=== PATIENT | male | born 1945 | race Caucasian/White ===

== ENCOUNTER → 2016-11-19 | Outpatient (CLI) | payer MEDICARE ==
[~2016-11-19] MED LIST: ACETAMINOPHEN-COD #3 PO; ALTACE 10MG TAB10 MG PO; AMARYL4 MG PO; ASPIRIN E.C. 8181 MG PO; DULCOLAX STOOL100 MG PO; LASIX 40MG40 MG/4 ML PO; LEADER CLE17 GM/Dose PO; LIPITOR 40MG TA40 MG PO; MAGNESIUM250 M1 PO; MOBIC 7.5MG7.5 MG PO; MOBIC15 MG PO; MOTRIN 600600 MG/TAB PO; NEURONTIN300 MG/CAP PO; NORCO 325 MG-51 TAB PO; PERCOCET 325 MG1 TA3 PO; PREDNISONE 5MG5 MG PO; PRINIVIL5 MG PO; ROBAXIN 50500 MG/TAB PO; TOUJEO300 U/ML SQ; TURMERIC500 MG PO; TYLENOL W/COD1 UDTAB PO; ULTRAM 50MG TAB50 MG PO; VERAPAMIL180 MG/TAB PO; VERELAN180 MG PO; ZYLOPRIM 300MG300 MG PO
== END ==
LOC: SUN.DIA 10:49
DX: E11.40 Type 2 diabetes mellitus with diabetic neuropathy, unspecified (principal); E11.65 Type 2 diabetes mellitus with hyperglycemia; Z79.4 Long term (current) use of insulin; Z71.3 Dietary counseling and surveillance; E78.5 Hyperlipidemia, unspecified; I10 Essential (primary) hypertension; Z87.891 Personal history of nicotine dependence

== ENCOUNTER → 2016-11-27 | Outpatient (CLI) | payer MEDICARE | LOC: COL.RAD 07:30 | DX: Z13.6 Encounter for screening for cardiovascular disorders (principal); Z87.891 Personal history of nicotine dependence ==

== ENCOUNTER 2017-02-17 07:21 | Emergency (ER) | payer MEDICARE ==
[~2017-02-17] VITALS: Ht 188 cm; Wt 136.4 kg
[2017-02-17 07:25] VITALS: TEMP 97.8
[2017-02-17] MEDS ORDERED: NORCO 325 MG-51 TAB PO (07:58)
[2017-02-17] MEDS ORDERED: ULTRAM 50MG TAB50 MG PO ×2 (07:58→08:15)
[2017-02-17] MEDS ORDERED: ROBAXIN 50500 MG/TAB PO ×2 (07:58→08:33)
[2017-02-17] MEDS ORDERED: LIPITOR 40MG TA40 MG PO (08:09)
[2017-02-17] MEDS ORDERED: TOUJEO300 U/ML SQ (08:10)
[2017-02-17] MEDS ORDERED: VERELAN180 MG PO (08:11)
[2017-02-17] MEDS ORDERED: ALTACE 10MG TAB10 MG PO (08:11)
[2017-02-17] MEDS ORDERED: AMARYL4 MG PO (08:12)
[2017-02-17] MEDS ORDERED: MAGNESIUM250 M1 PO (08:13)
[2017-02-17] MEDS ORDERED: NEURONTIN300 MG/CAP PO (08:13)
[2017-02-17] MEDS ORDERED: MOTRIN 600600 MG/TAB PO (08:14)
[2017-02-17] MEDS ORDERED: ZYLOPRIM 300MG300 MG PO (08:14)
[2017-02-17] MEDS ORDERED: ASPIRIN E.C. 8181 MG PO (08:15)
[2017-02-17] MEDS ORDERED: PERCOCET 325 MG1 TA3 PO (08:16)
[2017-02-17 08:37] VITALS: BP 175/77; PULSE 93
== END 2017-02-17 08:35 | disposition home or self-care (01) ==
LOC: COL.ER 07:21
DX: M25.552 Pain in left hip (principal); M79.652 Pain in left thigh; E11.9 Type 2 diabetes mellitus without complications; M54.5 Low back pain; Z79.4 Long term (current) use of insulin
CPT/HCPCS: J1170; J1885

== ENCOUNTER → 2017-02-22 | Outpatient (CLI) | payer MEDICARE | LOC: COL.RAD 13:48 | DX: M25.552 Pain in left hip (principal) | CPT/HCPCS: J3301; Q9967 ==

== ENCOUNTER 2017-03-09 08:09 | Inpatient (IN) | payer MEDICARE ==
[~2017-03-09] VITALS: Ht 190.5 cm; Wt 123.4 kg
[~2017-03-09 08:09] MED LIST changes: -ACETAMINOPHEN-COD #3 PO; -DULCOLAX STOOL100 MG PO; -LASIX 40MG40 MG/4 ML PO; -LEADER CLE17 GM/Dose PO; -MOBIC 7.5MG7.5 MG PO; -MOBIC15 MG PO; -PREDNISONE 5MG5 MG PO; -PRINIVIL5 MG PO; -TURMERIC500 MG PO; -TYLENOL W/COD1 UDTAB PO; -VERAPAMIL180 MG/TAB PO
[2017-03-09 08:38] LABS: BASO # 0.1 (0.0-0.2); BASO % 0.5 % (0.0-2.0); EOS # 0.1 (0.0-0.7); EOS % 0.7 % (0-4.0); GRAN # 12.6 (1.4-6.5); GRAN % 79.5 % (42.2-75.2); HEMATOCRIT 38.4 % (42.0-52.0); LYMPH # 1.9 (1.2-3.4); LYMPH % 11.9 % (20.0-51.0); MEAN CELL VOLUME 89 fl (80.0-100.0); MEAN CORPUSCULAR HEMOGLOBIN 27 pg (27.0-31.0); MEAN CORPUSCULAR HGB CONC 31 g/dl (33.0-37.0); MEAN PLATELET VOLUME 10.6 fl (7.4-10.4); MONO # 1.1 (0.1-0.6); MONO % 6.8 % (1.7-9.3); PLATELET COUNT 288 K/mm3 (130-400); RED BLOOD COUNT 4.34 M/mm3 (4.20-5.60); REDCELL DISTRIBUTION WIDTH-CV 15.6 % (11.5-14.5); WHITE BLOOD COUNT 15.8 K/mm3 (4.8-10.8)
[2017-03-09 08:39] LABS: HEMOGLOBIN 11.9 g/dl (13.5-18.0)
[2017-03-09 08:41] LABS: PROTHROMBIN TIME 11.5 SECONDS (9.7-12.8)
[2017-03-09 08:44] LABS: PARTIAL THROMBOPLASTIN TIME 30.3 SECONDS (26.0-37.0)
[2017-03-09] MEDS ORDERED: ROBAXIN 50500 MG/TAB PO (08:46)
[2017-03-09] MEDS ORDERED: ACETAMINOPHEN-COD #3 PO (08:46)
[2017-03-09 08:50] LABS: ADJUSTED CALCIUM 9.7 mg/dL (8.4-10.2); ALANINE AMINOTRANSFERASE 33 U/L (21-72); ALBUMIN 3.7 gm/dL (3.5-5.0); ALKALINE PHOSPHATASE 84 U/L (50-136); ANION GAP 10 mmol/L (7-16); BILIRUBIN,TOTAL 0.7 mg/dL (0.0-1.0); BLOOD UREA NITROGEN 48 mg/dL (9-20); CALCIUM 9.5 mg/dL (8.4-10.2); CARBON DIOXIDE 22 mmol/L (22-30); CHLORIDE 103 mmol/L (98-107); CREATININE, serum 1.92 mg/dL (0.66-1.25); GLUCOSE 242 mg/dL (74-106); SODIUM 135 mmol/L (137-145); TOTAL PROTEIN 6.9 gm/dL (6.4-8.2)
[2017-03-09 08:54] LABS: POTASSIUM 6.1 mmol/L (3.4-5.0)
[2017-03-09 09:01] LABS: TROPONIN-I < 0.012 ng/mL (0.000-0.034)
[2017-03-09 09:22] LABS: VENOUS BLOOD GAS BE -4.1 (-4-4)
[2017-03-09 09:23] LABS: VENOUS BLOOD GAS SITE VENIPUNCTURE
[2017-03-09 09:50] LABS: PH 5 (5-8); SQUAMOUS EPITHELIAL 0-2 /hpf; URINE APPEARANCE Hazy; URINE BACTERIA Rare /hpf; URINE BILIRUBIN Negative (NEGATIVE); URINE BLOOD Negative (NEGATIVE); URINE COLOR Yellow; URINE GLUCOSE Negative (NEGATIVE); URINE KETONE Negative (NEGATIVE); URINE UROBILINOGEN Negative (NEGATIVE)
[2017-03-09 11:31] VITALS: BP 125/56; PULSE 71; TEMP 97.7
[2017-03-09] MEDS ORDERED: MOBIC15 MG PO (14:29)
[2017-03-09 19:50] VITALS: BP 146/63; PULSE 77; TEMP 98.4
[2017-03-09] MEDS ORDERED: TYLENOL W/COD1 UDTAB PO (21:05)
[2017-03-10] VITALS (7 sets, daily range): BP systolic 134–157; BP diastolic 56–69; PULSE 75–88; TEMP 97.2–98.3
[2017-03-10 06:58] LABS: BASO % 0.4 % (0.0-2.0); EOS # 0.1 (0.0-0.7); EOS % 1.1 % (0-4.0); GRAN # 9.2 (1.4-6.5); GRAN % 81.2 % (42.2-75.2); LYMPH # 1.2 (1.2-3.4); LYMPH % 10.5 % (20.0-51.0); MEAN CELL VOLUME 87 fl (80.0-100.0); MEAN CORPUSCULAR HGB CONC 32 g/dl (33.0-37.0); MEAN PLATELET VOLUME 10.7 fl (7.4-10.4); MONO # 0.7 (0.1-0.6); MONO % 6.4 % (1.7-9.3); PLATELET COUNT 225 K/mm3 (130-400); RED BLOOD COUNT 3.96 M/mm3 (4.20-5.60); REDCELL DISTRIBUTION WIDTH-CV 15.3 % (11.5-14.5); WHITE BLOOD COUNT 11.4 K/mm3 (4.8-10.8)
[2017-03-10 07:03] LABS: CALCIUM 9.3 mg/dL (8.4-10.2); CREATININE, serum 1.51 mg/dL (0.66-1.25); POTASSIUM 5.3 mmol/L (3.4-5.0)
[2017-03-10 07:07] LABS: HEMATOCRIT 34.5 % (42.0-52.0); HEMOGLOBIN 10.9 g/dl (13.5-18.0); MEAN CORPUSCULAR HEMOGLOBIN 28 pg (27.0-31.0)
[2017-03-11 07:04] LABS: HEMATOCRIT 38.1 % (42.0-52.0); HEMOGLOBIN 12.1 g/dl (13.5-18.0); MEAN CELL VOLUME 86 fl (80.0-100.0); MEAN CORPUSCULAR HEMOGLOBIN 27 pg (27.0-31.0); MEAN CORPUSCULAR HGB CONC 32 g/dl (33.0-37.0); MEAN PLATELET VOLUME 10.7 fl (7.4-10.4); PLATELET COUNT 252 K/mm3 (130-400); RED BLOOD COUNT 4.42 M/mm3 (4.20-5.60); REDCELL DISTRIBUTION WIDTH-CV 15.1 % (11.5-14.5); WHITE BLOOD COUNT 9.7 K/mm3 (4.8-10.8)
[2017-03-11 07:16] LABS: CALCIUM 9.8 mg/dL (8.4-10.2); CREATININE, serum 1.23 mg/dL (0.66-1.25); POTASSIUM 5.1 mmol/L (3.4-5.0)
[2017-03-11 07:27] LABS: ADD PATHOLOGY DIFF REVIEW NO
[2017-03-11 07:54] VITALS: BP 156/66; PULSE 86; TEMP 97.1
[2017-03-11 11:21] LABS: BAND 12 % (0-10); EOSINOPHIL 1 % (0-4); NEUTROPHILS 76 % (42.0-75.2); TOTAL CELLS COUNTED 100
== END 2017-03-11 12:10 | disposition home or self-care (01) | DRG 315 ==
LOC: COL.ER 08:09 → MEDICAL 09:50
PROVIDERS: Family Medicine
DX: I95.9 Hypotension, unspecified (principal); N17.9 Acute kidney failure, unspecified; I25.10 Atherosclerotic heart disease of native coronary artery without angina pectoris; E87.5 Hyperkalemia; E11.9 Type 2 diabetes mellitus without complications; I10 Essential (primary) hypertension; Z87.891 Personal history of nicotine dependence
CPT/HCPCS: 99223-AI; 99232-AI; 99239; J0692; J1170; J1650; J1815; J1956; J2920; J7030

== ENCOUNTER → 2017-03-19 | Outpatient (CLI) | payer MEDICARE ==
[~2017-03-19] MED LIST changes: +ACETAMINOPHEN-COD #3 PO; +DULCOLAX STOOL100 MG PO; +LASIX 40MG40 MG/4 ML PO; +LEADER CLE17 GM/Dose PO; +MOBIC 7.5MG7.5 MG PO; +MOBIC15 MG PO; +PREDNISONE 5MG5 MG PO; +PRINIVIL5 MG PO; +TURMERIC500 MG PO; +TYLENOL W/COD1 UDTAB PO; +VERAPAMIL180 MG/TAB PO
== END ==
LOC: COL.RAD 12:22
DX: M47.816 Spondylosis without myelopathy or radiculopathy, lumbar region (principal); M51.26 Other intervertebral disc displacement, lumbar region; M48.06 Spinal stenosis, lumbar region; M25.78 Osteophyte, vertebrae; Z98.890 Other specified postprocedural states
CPT/HCPCS: A9585

== ENCOUNTER 2017-03-22 08:23 | Emergency (ER) | payer MEDICARE ==
[~2017-03-22] VITALS: Ht 188 cm; Wt 136.4 kg
[~2017-03-22 08:23] MED LIST changes: -DULCOLAX STOOL100 MG PO; -LASIX 40MG40 MG/4 ML PO; -LEADER CLE17 GM/Dose PO; -MOBIC 7.5MG7.5 MG PO; -PREDNISONE 5MG5 MG PO; -PRINIVIL5 MG PO; -TURMERIC500 MG PO; -VERAPAMIL180 MG/TAB PO
[2017-03-22 08:26] VITALS: TEMP 99.6
[2017-03-22] MEDS ORDERED: PRINIVIL5 MG PO (08:42)
[2017-03-22] MEDS ORDERED: MOBIC 7.5MG7.5 MG PO (08:44)
[2017-03-22] MEDS ORDERED: PERCOCET 325 MG1 TA3 PO (08:44)
[2017-03-22 10:42] VITALS: BP 103/61; PULSE 83
== END 2017-03-22 10:45 | disposition home or self-care (01) ==
LOC: COL.ER 08:23
DX: M54.5 Low back pain (principal); G89.29 Other chronic pain; E11.9 Type 2 diabetes mellitus without complications; I10 Essential (primary) hypertension; Z79.4 Long term (current) use of insulin
CPT/HCPCS: J1170

== ENCOUNTER 2017-03-23 09:06 | Emergency (ER) | payer MEDICARE ==
[~2017-03-23] VITALS: Ht 188 cm; Wt 136.4 kg
[~2017-03-23 09:06] MED LIST changes: +MOBIC 7.5MG7.5 MG PO; +PRINIVIL5 MG PO
[2017-03-23 09:07] VITALS: BP 129/63; TEMP 99
[2017-03-23 11:26] VITALS: PULSE 97
== END 2017-03-23 11:26 | disposition home or self-care (01) ==
LOC: COL.ER 09:06
DX: G89.29 Other chronic pain (principal); M54.5 Low back pain; E11.9 Type 2 diabetes mellitus without complications; I10 Essential (primary) hypertension; Z79.4 Long term (current) use of insulin; Z79.84 Long term (current) use of oral hypoglycemic drugs; Z79.82 Long term (current) use of aspirin
CPT/HCPCS: J1170; J3010

== ENCOUNTER 2017-03-24 05:56 | Inpatient (IN) | payer MEDICARE ==
[~2017-03-24] VITALS: Ht 188 cm; Wt 136.2 kg
[2017-03-24 06:50] LABS: BASO % 0.2 % (0.0-2.0); EOS # 0.1 (0.0-0.7); EOS % 1.1 % (0-4.0); GRAN # 8.3 (1.4-6.5); GRAN % 74.7 % (42.2-75.2); HEMATOCRIT 34.6 % (42.0-52.0); HEMOGLOBIN 10.8 g/dl (13.5-18.0); LYMPH # 1.5 (1.2-3.4); LYMPH % 13.6 % (20.0-51.0); MEAN CELL VOLUME 88 fl (80.0-100.0); MEAN CORPUSCULAR HEMOGLOBIN 27 pg (27.0-31.0); MEAN CORPUSCULAR HGB CONC 31 g/dl (33.0-37.0); MEAN PLATELET VOLUME 10.1 fl (7.4-10.4); MONO # 1.1 (0.1-0.6); PLATELET COUNT 231 K/mm3 (130-400); RED BLOOD COUNT 3.95 M/mm3 (4.20-5.60); REDCELL DISTRIBUTION WIDTH-CV 15.8 % (11.5-14.5); WHITE BLOOD COUNT 11.1 K/mm3 (4.8-10.8)
[2017-03-24 06:55] LABS: INR 1.2 (0.8-3.0); PROTHROMBIN TIME 13.4 SECONDS (9.7-12.8)
[2017-03-24 06:58] LABS: PARTIAL THROMBOPLASTIN TIME 29.8 SECONDS (26.0-37.0)
[2017-03-24 07:00] LABS: ADJUSTED CALCIUM 10.1 mg/dL (8.4-10.2); ALANINE AMINOTRANSFERASE 26 U/L (21-72); ALBUMIN 3.5 gm/dL (3.5-5.0); ALKALINE PHOSPHATASE 68 U/L (50-136); ANION GAP 8 mmol/L (7-16); BILIRUBIN,TOTAL 0.6 mg/dL (0.0-1.0); BLOOD UREA NITROGEN 49 mg/dL (9-20); CALCIUM 9.7 mg/dL (8.4-10.2); CARBON DIOXIDE 26 mmol/L (22-30); CHLORIDE 101 mmol/L (98-107); GLUCOSE 192 mg/dL (74-106); POTASSIUM 5.1 mmol/L (3.4-5.0); SODIUM 134 mmol/L (137-145); TOTAL PROTEIN 6.8 gm/dL (6.4-8.2)
[2017-03-24 07:11] LABS: B-TYPE NATRIURETIC PEPTIDE 510 pg/mL (0-125)
[2017-03-24 07:12] LABS: TROPONIN-I < 0.012 ng/mL (0.000-0.034)
[2017-03-24 11:38] VITALS: BP 154/70; PULSE 97; TEMP 97.7
[2017-03-24 15:59] VITALS: BP 154/65; PULSE 116; TEMP 98
[2017-03-24 20:14] VITALS: BP 132/58; PULSE 104; TEMP 98.9
[2017-03-24 23:33] VITALS: BP 135/68; PULSE 97; TEMP 98.2
[2017-03-25 04:05] VITALS: BP 137/50; PULSE 96; TEMP 98.2
[2017-03-25 08:12] VITALS: BP 130/63; PULSE 95; TEMP 98.6
[2017-03-25 09:53] LABS: BASO # 0.1 (0.0-0.2); BASO % 0.4 % (0.0-2.0); EOS # 0.1 (0.0-0.7); EOS % 1.1 % (0-4.0); GRAN # 8.7 (1.4-6.5); GRAN % 75.9 % (42.2-75.2); HEMOGLOBIN 12.5 g/dl (13.5-18.0); LYMPH # 1.6 (1.2-3.4); LYMPH % 13.8 % (20.0-51.0); MEAN CELL VOLUME 89 fl (80.0-100.0); MEAN CORPUSCULAR HEMOGLOBIN 28 pg (27.0-31.0); MEAN CORPUSCULAR HGB CONC 31 g/dl (33.0-37.0); MEAN PLATELET VOLUME 10.6 fl (7.4-10.4); MONO # 0.9 (0.1-0.6); MONO % 8.2 % (1.7-9.3); PLATELET COUNT 303 K/mm3 (130-400); RED BLOOD COUNT 4.52 M/mm3 (4.20-5.60); REDCELL DISTRIBUTION WIDTH-CV 15.9 % (11.5-14.5); WHITE BLOOD COUNT 11.5 K/mm3 (4.8-10.8)
[2017-03-25 10:02] LABS: CALCIUM 10.7 mg/dL (8.4-10.2); CREATININE, serum 1.71 mg/dL (0.66-1.25)
[2017-03-25 12:49] VITALS: BP 135/66; PULSE 118; TEMP 99
[2017-03-25] MEDS ORDERED: DULCOLAX STOOL100 MG PO (13:07)
[2017-03-25] MEDS ORDERED: LASIX 40MG40 MG/4 ML PO (13:08)
[2017-03-25] MEDS ORDERED: LEADER CLE17 GM/Dose PO (13:09)
== END 2017-03-25 15:00 | disposition short-term general hospital (02) | DRG 552 ==
LOC: COL.ER 05:56 → MEDICAL 08:11
PROVIDERS: Emergency Medicine; Physician Assistant
DX: M48.06 Spinal stenosis, lumbar region (principal); E11.9 Type 2 diabetes mellitus without complications; R60.9 Edema, unspecified; I34.0 Nonrheumatic mitral (valve) insufficiency; I12.9 Hypertensive chronic kidney disease with stage 1 through stage 4 chronic kidney disease, or unspecified chronic kidney disease; N18.9 Chronic kidney disease, unspecified; Z79.4 Long term (current) use of insulin; Z87.891 Personal history of nicotine dependence
CPT/HCPCS: 99222-AI; 99239; J1170; J1650; J1815; J1940; J3010

== ENCOUNTER → 2017-04-03 | Outpatient (CLI) | payer MEDICARE ==
[~2017-04-03] MED LIST changes: +DULCOLAX STOOL100 MG PO; +LASIX 40MG40 MG/4 ML PO; +LEADER CLE17 GM/Dose PO; +PREDNISONE 5MG5 MG PO; +TURMERIC500 MG PO; +VERAPAMIL180 MG/TAB PO
== END ==
LOC: ZCOL.LAB 09:13
DX: Z01.812 Encounter for preprocedural laboratory examination (principal); Z86.14 Personal history of Methicillin resistant Staphylococcus aureus infection

== ENCOUNTER 2017-04-22 11:48 | Emergency (ER) | payer MEDICARE ==
[~2017-04-22] VITALS: Ht 188 cm; Wt 128.2 kg
[~2017-04-22 11:48] MED LIST changes: -PREDNISONE 5MG5 MG PO; -TURMERIC500 MG PO; -VERAPAMIL180 MG/TAB PO
[2017-04-22 11:49] VITALS: TEMP 97.4
[2017-04-22 12:24] LABS: BASO # 0.1 (0.0-0.2); BASO % 0.3 % (0.0-2.0); EOS # 0.2 (0.0-0.7); EOS % 1.4 % (0-4.0); GRAN # 12.6 (1.4-6.5); GRAN % 78.6 % (42.2-75.2); LYMPH # 2.1 (1.2-3.4); LYMPH % 13.2 % (20.0-51.0); MEAN CELL VOLUME 88 fl (80.0-100.0); MEAN CORPUSCULAR HGB CONC 31 g/dl (33.0-37.0); MEAN PLATELET VOLUME 10.5 fl (7.4-10.4); MONO # 0.9 (0.1-0.6); MONO % 5.4 % (1.7-9.3); PLATELET COUNT 237 K/mm3 (130-400); RED BLOOD COUNT 3.92 M/mm3 (4.20-5.60); REDCELL DISTRIBUTION WIDTH-CV 17.5 % (11.5-14.5)
[2017-04-22 12:25] LABS: HEMATOCRIT 34.5 % (42.0-52.0); HEMOGLOBIN 10.8 g/dl (13.5-18.0); MEAN CORPUSCULAR HEMOGLOBIN 28 pg (27.0-31.0)
[2017-04-22 12:34] LABS: ARTERIAL BLD GAS TCO2 CT 25.4; ARTERIAL BLOOD GAS BASE EXCESS -0.2 (-2-2); ARTERIAL BLOOD GAS HCO3 24.2 meq/L (22-26); ARTERIAL BLOOD GAS PO2 69.7 mmHg (80-100); ARTERIAL BLOOD GAS pH 7.41 (7.35-7.45); OXYHEMOGLOBIN 92.2 %
[2017-04-22 12:35] LABS: ALLEN TEST YES; ALLENS TEST RESULT PASS; ATS? YES
[2017-04-22 12:42] LABS: ADJUSTED CALCIUM 9.6 mg/dL (8.4-10.2); ALBUMIN 3.4 gm/dL (3.5-5.0); BILIRUBIN,TOTAL 0.9 mg/dL (0.0-1.0); C-REACTIVE PROTEIN 2.7 mg/dL (0.0-0.9); CALCIUM 9.1 mg/dL (8.4-10.2); CREATININE, serum 1.37 mg/dL (0.66-1.25); TOTAL PROTEIN 6.3 gm/dL (6.4-8.2)
[2017-04-22] MEDS ORDERED: TURMERIC500 MG PO (12:47)
[2017-04-22] MEDS ORDERED: VERAPAMIL180 MG/TAB PO (12:48)
[2017-04-22 13:05] LABS: ERYTHROCYTE SEDIMENTATION RATE 46 mm/hr (0-30)
[2017-04-22 13:16] LABS: PH 5 (5-8); SQUAMOUS EPITHELIAL 0-2 /hpf; URINE APPEARANCE Clear; URINE BACTERIA None Seen /hpf; URINE BILIRUBIN Negative (NEGATIVE); URINE BLOOD Negative (NEGATIVE); URINE COLOR Yellow; URINE GLUCOSE Negative (NEGATIVE); URINE KETONE Negative (NEGATIVE); URINE RBC 0-2 /hpf; URINE UROBILINOGEN Negative (NEGATIVE); URINE WBC None Seen /hpf
[2017-04-22] MEDS ORDERED: PREDNISONE 5MG5 MG PO (13:46)
[2017-04-22 17:03] VITALS: BP 111/55; PULSE 74
== END 2017-04-22 17:05 | disposition home or self-care (01) ==
LOC: COL.ER 11:48
PROVIDERS: Family Medicine
DX: M35.3 Polymyalgia rheumatica (principal); I12.9 Hypertensive chronic kidney disease with stage 1 through stage 4 chronic kidney disease, or unspecified chronic kidney disease; E11.22 Type 2 diabetes mellitus with diabetic chronic kidney disease; N18.9 Chronic kidney disease, unspecified; Z79.4 Long term (current) use of insulin; Z79.84 Long term (current) use of oral hypoglycemic drugs
CPT/HCPCS: A9585; J2405; J7030

== ENCOUNTER 2017-06-11 08:00 | Outpatient (RCR) | payer MEDICARE ==
[~2017-06-11 08:00] MED LIST changes: +PREDNISONE 5MG5 MG PO; +TURMERIC500 MG PO; +VERAPAMIL180 MG/TAB PO
== END 2017-06-12 09:53 | disposition still patient (30) ==
LOC: WSPT 08:00
DX: M25.552 Pain in left hip (principal); M25.551 Pain in right hip; M25.512 Pain in left shoulder; M25.511 Pain in right shoulder; M62.81 Muscle weakness (generalized); Z74.09 Other reduced mobility
CPT/HCPCS: G8984-GP; G8985-GP; G8986-GP

== ENCOUNTER 2017-09-12 17:44 | Emergency (ER) | payer MEDICARE ==
[~2017-09-12] VITALS: Ht 188 cm; Wt 141.8 kg
[2017-09-12 18:03] VITALS: TEMP 100.5
[2017-09-12] MEDS ORDERED: DEMADEX10 MG PO (19:24)
[2017-09-12 19:39] LABS: BASO % 0.6 % (0.0-2.0); EOS # 0.1 (0.0-0.7); EOS % 0.8 % (0-4.0); GRAN # 5.3 (1.4-6.5); GRAN % 74.1 % (42.2-75.2); HEMATOCRIT 39.1 % (42.0-52.0); HEMOGLOBIN 12.3 g/dl (13.5-18.0); LYMPH # 0.9 (1.2-3.4); LYMPH % 12.5 % (20.0-51.0); MEAN CELL VOLUME 92 fl (80.0-100.0); MEAN CORPUSCULAR HEMOGLOBIN 29 pg (27.0-31.0); MEAN CORPUSCULAR HGB CONC 32 g/dl (33.0-37.0); MEAN PLATELET VOLUME 10.1 fl (7.4-10.4); MONO # 0.8 (0.1-0.6); PLATELET COUNT 173 K/mm3 (130-400); RED BLOOD COUNT 4.26 M/mm3 (4.20-5.60); REDCELL DISTRIBUTION WIDTH-CV 16.5 % (11.5-14.5)
[2017-09-12 19:51] LABS: CALCIUM 9.6 mg/dL (8.4-10.2); CREATININE, serum 1.72 mg/dL (0.66-1.25); POTASSIUM 4.5 mmol/L (3.4-5.0)
[2017-09-12] MEDS ORDERED: TESSALON P100 MG/CAP PO (20:32)
[2017-09-12] MEDS ORDERED: ZITHROMAX Z PA250 MG PO (20:32)
[2017-09-12] MEDS ORDERED: PROAIR HFA0.09 MG/AC IH (20:32)
[2017-09-12 20:42] VITALS: BP 138/49; PULSE 98
== END 2017-09-12 20:45 | disposition home or self-care (01) ==
LOC: COL.ER 17:44
PROVIDERS: Emergency Medicine
DX: J20.9 Acute bronchitis, unspecified (principal); E11.9 Type 2 diabetes mellitus without complications; I10 Essential (primary) hypertension; Z87.891 Personal history of nicotine dependence; Z90.49 Acquired absence of other specified parts of digestive tract; Z98.890 Other specified postprocedural states; Z79.4 Long term (current) use of insulin; Z79.82 Long term (current) use of aspirin
CPT/HCPCS: J7512

== ENCOUNTER → 2017-10-15 | Outpatient (CLI) | payer MEDICARE ==
[~2017-10-15] MED LIST changes: +DEMADEX10 MG PO; +PROAIR HFA0.09 MG/AC IH; +TESSALON P100 MG/CAP PO; +ZITHROMAX Z PA250 MG PO
== END ==
LOC: COL.RAD 11:30
DX: N20.0 Calculus of kidney (principal); N28.1 Cyst of kidney, acquired; N40.0 Benign prostatic hyperplasia without lower urinary tract symptoms; Z90.49 Acquired absence of other specified parts of digestive tract

== ENCOUNTER → 2017-10-18 | Outpatient (CLI) | payer MEDICARE | LOC: COL.RAD 07:44 | DX: M25.551 Pain in right hip (principal) | CPT/HCPCS: J3301; Q9967 ==

== ENCOUNTER → 2017-10-28 | Outpatient (RCR) | payer MEDICARE | END | disposition home or self-care (01) | LOC: WSPT | DX: I50.30 Unspecified diastolic (congestive) heart failure (principal) | CPT/HCPCS: G8978-GP; G8979-GP ==

== ENCOUNTER 2017-12-17 14:30 | Outpatient (RCR) | payer MEDICARE | END 2017-12-28 09:32 | disposition home or self-care (01) | LOC: WSPT 14:30 | DX: I50.30 Unspecified diastolic (congestive) heart failure (principal) | CPT/HCPCS: G8978-GP; G8979-GP ==

== ENCOUNTER → 2018-01-07 | Outpatient (CLI) | payer MEDICARE | LOC: COL.RAD 12-18 08:15 | DX: M51.26 Other intervertebral disc displacement, lumbar region (principal); M48.061 Spinal stenosis, lumbar region without neurogenic claudication; M43.8X6 Other specified deforming dorsopathies, lumbar region; G96.19 Other disorders of meninges, not elsewhere classified; M25.551 Pain in right hip; M96.1 Postlaminectomy syndrome, not elsewhere classified | CPT/HCPCS: A9585 ==

== ENCOUNTER 2018-06-08 08:30 | Outpatient (RCR) | payer MEDICARE ==
[2018-06-05 10:45] VITALS: BP 140/58; PULSE 92; TEMP 97.7
[2018-06-06 10:23] VITALS: BP 122/63; PULSE 86; TEMP 97.7
[~2018-06-08] VITALS: Ht 188 cm; Wt 130.7 kg
[~2018-06-08 08:30] MED LIST changes: +APRESOLINE50 MG PO; +CARDIZEM CD360 MG PO; +CORDARONE200 MG/TAB PO; +DEMADEX 20MG20 M1 PO; +DOXYCYCLINE 10100 MG PO; +ELIQUIS 5MG PO; +EPA FISH OIL1 SGL PO; +FOLIC ACID 11 MG/TA1 PO; +HUMALOG100 U/ML SQ; +HUMALOGKP50/50 SQ; +INVANZ INJ1 G/VIAL IM; +LEVEMIR FLEX100 U/ML SQ; +METHOTREXA2.5 MG/TAB PO; +PREDNISONE10 MG PO; +VITAMIN D31000 I1 PO
== END 2018-06-09 14:18 | disposition home or self-care (01) ==
LOC: EUO 08:30
DX: M72.6 Necrotizing fasciitis (principal)
CPT/HCPCS: J1335

== ENCOUNTER → 2018-06-19 | Outpatient (CLI) | payer MEDICARE ==
[2018-06-19 17:09] LABS: HEMOGLOBIN 11.3 g/dl (13.5-18.0); MEAN CELL VOLUME 92 fl (80.0-100.0); MEAN CORPUSCULAR HEMOGLOBIN 29 pg (27.0-31.0); MEAN CORPUSCULAR HGB CONC 31 g/dl (33.0-37.0); MEAN PLATELET VOLUME 10.1 fl (7.4-10.4); PLATELET COUNT 364 K/mm3 (130-400); RED BLOOD COUNT 3.92 M/mm3 (4.20-5.60); REDCELL DISTRIBUTION WIDTH-CV 16.3 % (11.5-14.5)
[2018-06-19 17:34] LABS: CALCIUM 9.8 mg/dL (8.4-10.2); CREATININE, serum 2.57 mg/dL (0.66-1.25)
[2018-06-19 18:05] LABS: ERYTHROCYTE SEDIMENTATION RATE 88 mm/hr (0-30); POTASSIUM 5.9 mmol/L (3.4-5.0)
== END ==
LOC: COL.LAB 16:34
PROVIDERS: Family Medicine
DX: M35.3 Polymyalgia rheumatica (principal); N49.3 Fournier gangrene; R01.1 Cardiac murmur, unspecified

== ENCOUNTER 2018-11-07 09:00 | Outpatient (RCR) | payer MEDICARE | END 2018-11-24 09:28 | disposition home or self-care (01) | LOC: WSC 09:00 | DX: M46.1 Sacroiliitis, not elsewhere classified (principal); M47.816 Spondylosis without myelopathy or radiculopathy, lumbar region ==

== ENCOUNTER 2018-12-05 11:03 | Inpatient (IN) | payer MEDICARE ==
[~2018-12-05] VITALS: Ht 188 cm; Wt 129.2 kg
[2018-12-05 11:35] LABS: BASO % 0.5 % (0.0-2.0); EOS # 0.1 (0.0-0.7); EOS % 0.7 % (0-4.0); GRAN # 7.3 (1.4-6.5); GRAN % 84.3 % (42.2-75.2); HEMATOCRIT 37.1 % (42.0-52.0); HEMOGLOBIN 11.9 g/dl (13.5-18.0); LYMPH # 0.7 (1.2-3.4); LYMPH % 8.3 % (20.0-51.0); MEAN CELL VOLUME 94 fl (80.0-100.0); MEAN CORPUSCULAR HEMOGLOBIN 30 pg (27.0-31.0); MEAN CORPUSCULAR HGB CONC 32 g/dl (33.0-37.0); MEAN PLATELET VOLUME 9.8 fl (7.4-10.4); MONO # 0.5 (0.1-0.6); MONO % 5.4 % (1.7-9.3); PLATELET COUNT 368 K/mm3 (130-400); RED BLOOD COUNT 3.95 M/mm3 (4.20-5.60); REDCELL DISTRIBUTION WIDTH-CV 16.5 % (11.5-14.5)
[2018-12-05 11:41] LABS: ALBUMIN 3.7 gm/dL (3.5-5.0); BILIRUBIN,TOTAL 1.3 mg/dL (0.0-1.0); CALCIUM 9.8 mg/dL (8.4-10.2); CREATININE, serum 1.88 (0.66-1.25); POTASSIUM 4.2 mmol/L (3.4-5.0)
[2018-12-05 11:54] LABS: TROPONIN-I 0.062 ng/mL (0.000-0.035)
[2018-12-05 11:55] LABS: ARTERIAL BLD GAS O2 SATURATION 93.7 % (92-100); ARTERIAL BLD GAS TCO2 CT 29.5; ARTERIAL BLOOD GAS BASE EXCESS 6.1 (-2-2); ARTERIAL BLOOD GAS HCO3 28.5 meq/L (22-26); ARTERIAL BLOOD GAS PCO2 33.6 mmHg (35-45); ARTERIAL BLOOD GAS PO2 67.9 mmHg (80-100); ARTERIAL BLOOD GAS pH 7.55 (7.35-7.45)
[2018-12-05] MEDS ORDERED: LEXAPRO 5MG5 MG PO (12:37)
[2018-12-05] MEDS ORDERED: ASPIRIN 81M81 MG/TA2 PO (12:38)
[2018-12-05] MEDS ORDERED: TYLENOL W/COD1 UDTAB PO (12:38)
[2018-12-05 13:15] LABS: COLLECTION METHOD CLEAN CATCH
[2018-12-05 13:24] LABS: MUCOUS Present /lpf; PH 6 (5-8); SQUAMOUS EPITHELIAL 0-2 /hpf; URINE APPEARANCE Clear; URINE BACTERIA Rare /hpf; URINE BILIRUBIN Negative (NEGATIVE); URINE BLOOD 1+ (NEGATIVE); URINE COLOR Yellow; URINE GLUCOSE Negative (NEGATIVE); URINE KETONE Negative (NEGATIVE); URINE LEUKOCYTE ESTERASE Negative (NEGATIVE); URINE NITRATE Negative (NEGATIVE); URINE PROTEIN(semi-quant) 2+ (NEGATIVE); URINE RBC 0-2 /hpf; URINE UROBILINOGEN Negative (NEGATIVE)
--- NOTE | 2018-12-05 14:30 | NUR ---
received report from RUDY Trevino from ER.
--- NOTE | 2018-12-05 14:50 | NUR ---
pt arrive to room 315.oriented to room.resting in bed at this time.call light in reach
[2018-12-05 15:19] VITALS: BP 108/46; PULSE 94; TEMP 98.9
[2018-12-05] MEDS ORDERED: NEURONTIN300 MG/CAP PO (15:31)
[2018-12-05] MEDS ORDERED: FOLIC ACID 11 MG/TA1 PO (15:36)
--- NOTE | 2018-12-05 20:00 | NUR ---
PT IN BED WITH HOB ELEVATED TO 45 DEGREE ANGLE. PT HAS BY SIDE. NO C/O PAIN OR DISCOMFORT, CALL LIGHT WITHIN REACH.
--- NOTE | 2018-12-05 20:11 | NUR ---
PT SITTING UP EATING AT THIS TIME.HEPARIN GTT INFUSING.REPORT GIVEN TO RUDY PLUMMRE.WILL CONTINUE TO MONITOR.CALL LIGHT IN REACH
[2018-12-05 22:40] VITALS: BP 115/62; PULSE 74; TEMP 99.6
[2018-12-06] VITALS (1117 sets, daily range): BP systolic 133–147; BP diastolic 67–91; PULSE 73–94; TEMP 97.8–99.6; O2SAT 83–100
[2018-12-06 01:33] LABS: BASO # 0.1 (0.0-0.2); BASO % 0.6 % (0.0-2.0); EOS # 0.1 (0.0-0.7); EOS % 1.2 % (0-4.0); GRAN # 6.6 (1.4-6.5); GRAN % 80.7 % (42.2-75.2); LYMPH # 1.2 (1.2-3.4); LYMPH % 14.1 % (20.0-51.0); MEAN CELL VOLUME 95 fl (80.0-100.0); MEAN CORPUSCULAR HEMOGLOBIN 30 pg (27.0-31.0); MEAN CORPUSCULAR HGB CONC 32 g/dl (33.0-37.0); MEAN PLATELET VOLUME 9.5 fl (7.4-10.4); MONO # 0.2 (0.1-0.6); MONO % 2.9 % (1.7-9.3); PLATELET COUNT 323 K/mm3 (130-400); RED BLOOD COUNT 3.65 M/mm3 (4.20-5.60); REDCELL DISTRIBUTION WIDTH-CV 16.4 % (11.5-14.5)
[2018-12-06 01:35] LABS: HEMATOCRIT 34.6 % (42.0-52.0)
[2018-12-06 01:43] LABS: ALBUMIN 3.2 gm/dL (3.5-5.0); BILIRUBIN,TOTAL 0.7 mg/dL (0.0-1.0); CALCIUM 9.3 mg/dL (8.4-10.2); CREATININE, serum 1.74 (0.66-1.25); MAGNESIUM 2.1 mg/dL (1.6-2.3); POTASSIUM 3.9 mmol/L (3.4-5.0); TOTAL PROTEIN 6.1 gm/dL (6.4-8.2)
--- NOTE | 2018-12-06 02:15 | NUR ---
REPORT GIVEN TO ICU NURSE. PT ADVISED THAT HE WAS JUST UNCOMFORTABLE IN BED AND THAT HE HAS ALWAYS HAD THAT PROBLEM WHEN HE IS IN THE HOSPITAL. PT WAS TAKEN DOWN TO ICU VIA W/C WITH ALL HIS PERSONAL BELONGINGS. PT BROUGHT TO ROOM 8.
--- NOTE | 2018-12-06 03:33 | NUR ---
0207 - RECEIVED REPORT FROM RUDY PLUMMER VIA PHONE. 0240 - PT ARRIVED IN UNIT VIA WHEELCHAIR ESCORETD BY RUDY PLUMMER. PT WAS ABLE TO TRANSFER SELF TO BED INDEPENDENTLY. PT ALERT AND ORIENTED X4. PT ORIENTED TO ROOM AND USE OF CALL LIGHT.
--- NOTE | 2018-12-06 03:36 | NUR ---
PT ARRIVED ON UNIT AT 0240 WITH HIS HEPARIN DRIP OFF. HEPARIN WAS STOPED AT 0130 PER RUDY PLUMMER. NEXT HEPARIN XA ORDERED AT 0330 PER PROTOCOL.
[2018-12-06 03:50] LABS: BASO % 0.5 % (0.0-2.0); EOS # 0.1 (0.0-0.7); EOS % 1.3 % (0-4.0); GRAN # 6.1 (1.4-6.5); GRAN % 79.8 % (42.2-75.2); HEMOGLOBIN 10.6 g/dl (13.5-18.0); LYMPH # 1.1 (1.2-3.4); LYMPH % 14.3 % (20.0-51.0); MEAN CELL VOLUME 95 fl (80.0-100.0); MEAN CORPUSCULAR HEMOGLOBIN 30 pg (27.0-31.0); MEAN CORPUSCULAR HGB CONC 32 g/dl (33.0-37.0); MEAN PLATELET VOLUME 9.3 fl (7.4-10.4); MONO # 0.3 (0.1-0.6); MONO % 3.5 % (1.7-9.3); PLATELET COUNT 323 K/mm3 (130-400); RED BLOOD COUNT 3.53 M/mm3 (4.20-5.60); REDCELL DISTRIBUTION WIDTH-CV 16.5 % (11.5-14.5)
[2018-12-06 03:58] LABS: HEMATOCRIT 33.5 % (42.0-52.0)
[2018-12-06 04:04] LABS: ALBUMIN 3.1 gm/dL (3.5-5.0); BILIRUBIN,TOTAL 0.6 mg/dL (0.0-1.0); CALCIUM 9.3 mg/dL (8.4-10.2); CREATININE, serum 1.71 (0.66-1.25); POTASSIUM 4.1 mmol/L (3.4-5.0); TOTAL PROTEIN 6.1 gm/dL (6.4-8.2)
[2018-12-06 04:20] LABS: TROPONIN-I 0.086 ng/mL (0.000-0.035)
--- NOTE | 2018-12-06 04:36 | NUR ---
HEP XA OF 0.70, HEPARIN DRIP RESTARTED AT 1970 UNITS/HR(19.7 ML/HR) PER PROTOCOL SINCE LAST DOSE WAS 22.7 ML/HR. RECHECK OF HEP XA AT 1030.
--- NOTE | 2018-12-06 04:51 | NUR ---
0420 - CRITICAL TROPONIN OF 0.086 REPORTED TO ABIDA CRONIN, NO NEW ORDERS RECEIVED AT THIS TIME.
--- NOTE | 2018-12-06 11:15 | NUR ---
HepXA 1.05; Heparin stopped at this time x2 hours, then will recheck HepXa. Patient and aware.
--- NOTE | 2018-12-06 12:24 | NUR ---
Senior Librarian offered support with patient while family was in room. Patient seemed frustrated.
[2018-12-06 13:58] LABS: PARTIAL THROMBOPLASTIN TIME 47.3 SECONDS (26.0-37.0)
[2018-12-07] VITALS (488 sets, daily range): BP systolic 127–144; BP diastolic 54–106; PULSE 79–84; TEMP 98.7–100.1; O2SAT 86–98
--- NOTE | 2018-12-07 03:50 | NUR ---
MET GOAL TWICE, NEXT HEP XA LULY AT 0500.
[2018-12-07 05:52] LABS: BASO # 0.1 (0.0-0.2); BASO % 0.8 % (0.0-2.0); EOS # 0.2 (0.0-0.7); EOS % 2.2 % (0-4.0); GRAN # 6.3 (1.4-6.5); HEMOGLOBIN 10.5 g/dl (13.5-18.0); LYMPH # 1.1 (1.2-3.4); LYMPH % 13.7 % (20.0-51.0); MEAN CELL VOLUME 96 fl (80.0-100.0); MEAN CORPUSCULAR HEMOGLOBIN 30 pg (27.0-31.0); MEAN CORPUSCULAR HGB CONC 31 g/dl (33.0-37.0); MEAN PLATELET VOLUME 9.9 fl (7.4-10.4); MONO # 0.2 (0.1-0.6); MONO % 1.9 % (1.7-9.3); PLATELET COUNT 328 K/mm3 (130-400); RED BLOOD COUNT 3.52 M/mm3 (4.20-5.60); REDCELL DISTRIBUTION WIDTH-CV 16.5 % (11.5-14.5)
[2018-12-07 05:59] LABS: HEMATOCRIT 33.7 % (42.0-52.0)
[2018-12-07 06:01] LABS: CALCIUM 9.4 mg/dL (8.4-10.2); CREATININE, serum 1.62 (0.66-1.25)
--- NOTE | 2018-12-07 07:15 | NUR ---
Report recieved from Lanie GRANT. Patient sitting up in chair watching golf. Denies needs. Call light at side.
--- NOTE | 2018-12-07 10:10 | NUR ---
Report called to Melly GRANT
--- NOTE | 2018-12-07 10:19 | NUR ---
RECEIVED REPORT FROM RUDY TAYLOR.
--- NOTE | 2018-12-07 10:55 | NUR ---
transferred to room 308 via wheel chair with RN and at side. Melly RN in room to accept patient after second call. Patient up in recliner, call light and phone at side. Heparin reviewed with accepting RN
--- NOTE | 2018-12-07 11:18 | NUR ---
PT ARRIVED TO ROOM 308.SITTING UP IN RECLINER AT THIS TIME WITH AT BEDSIDE.PATIENT HAS HEPARIN DRIP INFUSING.DENIES ANY OTHER NEEDS AT THIS TIME.CALL LIGHT IN REACH
--- NOTE | 2018-12-07 11:40 | NUR ---
RECEIVED CALL FROM LAB STATING THAT PATIENT IS POSITIVE FOR MRSA.CONTACT PRECAUTION PRECAUTION IN PLACE.WILL CONTINUE TO MONITOR.CALL LIGHT IN REACH
--- NOTE | 2018-12-07 17:14 | NUR ---
Heparin discontinued per doctors orders.
--- NOTE | 2018-12-07 18:13 | NUR ---
CONSULTED FOR INFECTION OF UNKNOWN ORIGIN.PT CONTINUES ON VANCOMYCIN AND ROCEPHIN.PT HAS BEEN FEBRILE.HEPARIN GTT DISCONTINUED.PATIENT RESTING IN RECLINER.BLOOD SUGARS STABLE.NO NEEDS AT THIS TIME.CALL LIGHT IN REACH
--- NOTE | 2018-12-07 18:59 | NUR ---
vanc trough 21.28.hold ack sent to pharmacy after attempt to call pharmacy.Mechanical And Auto Body Car Checker to get trombone slide assembler number for pharmacy.
--- NOTE | 2018-12-07 19:10 | NUR ---
report given to RUDY Garcia
--- NOTE | 2018-12-07 19:17 | NUR ---
Report received from RUDY Pickard
--- NOTE | 2018-12-07 21:25 | NUR ---
Resting in recliner. Assessment complete. Lungs clear. Heart sounds normal. Bowels active x4. Pulses present. Bilateral lower leg edema +3 present. Denies pain. Reports headache-01/02. Requested tylenol #3. Will provide to patient. Denies other needs at this time. Call light in reach.
--- NOTE | 2018-12-08 00:15 | NUR ---
Sitting in recliner. Denies needs. Denies pain. Call light in reach.
[2018-12-08 00:28] VITALS: BP 102/31; PULSE 75; TEMP 98.7
[2018-12-08 01:08] VITALS: BP 121/48; PULSE 75; TEMP 98.7
--- NOTE | 2018-12-08 04:16 | NUR ---
Resting in bed. Call light in reach.
[2018-12-08 05:07] VITALS: BP 145/53; PULSE 87; TEMP 98.6
--- NOTE | 2018-12-08 06:06 | NUR ---
Patient had uneventful night. Resting in bed this AM. Denies needs. Call light in reach.
--- NOTE | 2018-12-08 07:13 | NUR ---
Report given to RUDY Boswell
[2018-12-08 07:28] LABS: BASO # 0.1 (0.0-0.2); BASO % 0.7 % (0.0-2.0); EOS # 0.2 (0.0-0.7); GRAN # 7.3 (1.4-6.5); GRAN % 84.6 % (42.2-75.2); HEMOGLOBIN 11.1 g/dl (13.5-18.0); LYMPH # 0.8 (1.2-3.4); LYMPH % 8.9 % (20.0-51.0); MEAN CELL VOLUME 95 fl (80.0-100.0); MEAN CORPUSCULAR HEMOGLOBIN 30 pg (27.0-31.0); MEAN CORPUSCULAR HGB CONC 31 g/dl (33.0-37.0); MEAN PLATELET VOLUME 9.9 fl (7.4-10.4); MONO # 0.3 (0.1-0.6); MONO % 2.9 % (1.7-9.3); PLATELET COUNT 347 K/mm3 (130-400); RED BLOOD COUNT 3.72 M/mm3 (4.20-5.60); REDCELL DISTRIBUTION WIDTH-CV 16.3 % (11.5-14.5)
[2018-12-08 07:29] LABS: HEMATOCRIT 35.4 % (42.0-52.0)
[2018-12-08 07:35] VITALS: BP 117/49; PULSE 97; TEMP 98.8
[2018-12-08 07:44] LABS: CALCIUM 9.7 mg/dL (8.4-10.2); CREATININE, serum 1.84 (0.66-1.25); POTASSIUM 4.1 mmol/L (3.4-5.0)
--- NOTE | 2018-12-08 08:26 | NUR ---
Pt assessment complete. Pt laying in bed upon entry, at bedside. Pt has eyes closed but arouses to voice. He is oriented x4. His breathing is even and unlabored on RA. Pt denies SOB. Pt currently reporting a headache, denies any N/V or vision changes. No N/T present. Isolation precautions in place. Pt denies further needs, breakfast order placed. Will continue to monitor.
[2018-12-08 11:26] VITALS: BP 117/55; PULSE 64; TEMP 98.3
[2018-12-08] MEDS ORDERED: DOXYCYCLINE 10100 MG PO (11:33)
[2018-12-08] MEDS ORDERED: COREG 6.256.25 MG/TA PO (11:34)
--- NOTE | 2018-12-08 11:41 | NUR ---
SW attended clinical rounding and met with patient to discuss discharge planning. Patient is DC home today with his Delmis. He lives in [place] and is independent. Patients PCP is Dr Jeremy Henao and he obtains his medications from [facility]. PT and OT have been consulted however nurse says he is up independently in his room. SW met presented IM and verbally discussed the contents. Patient was agreeable and signed the form. Copy declined and original in the chart. Patient has an appointment with [facility] tomorrow.
--- NOTE | 2018-12-08 16:01 | NUR ---
Discharge paperwork reviewed with patient and his . All questions answered at this time. IV to RFA dc'd, catheter tip intact. Pt wheeled out of facility at this time.
== END 2018-12-08 16:01 | disposition home or self-care (01) | DRG 189 ==
LOC: COL.ER 11:03 → MEDICAL 13:11 → ICU 12-06 04:46 → MEDICAL 12-07 10:57
PROVIDERS: Family Medicine; Hospitalist; Nurse Practitioner Family; Physician Assistant; ADMIT Family Medicine
DX: J96.01 Acute respiratory failure with hypoxia (principal); R65.11 Systemic inflammatory response syndrome (SIRS) of non-infectious origin with acute organ dysfunction; I21.4 Non-ST elevation (NSTEMI) myocardial infarction; I13.0 Hypertensive heart and chronic kidney disease with heart failure and stage 1 through stage 4 chronic kidney disease, or unspecified chronic kidney disease; I50.32 Chronic diastolic (congestive) heart failure; E87.4 Mixed disorder of acid-base balance; E87.1 Hypo-osmolality and hyponatremia; I47.2 Ventricular tachycardia; R50.9 Fever, unspecified; I35.0 Nonrheumatic aortic (valve) stenosis; I25.10 Atherosclerotic heart disease of native coronary artery without angina pectoris; E11.22 Type 2 diabetes mellitus with diabetic chronic kidney disease; N18.3 Chronic kidney disease, stage 3 (moderate); E78.5 Hyperlipidemia, unspecified; M35.3 Polymyalgia rheumatica; Z79.52 Long term (current) use of systemic steroids; Z79.4 Long term (current) use of insulin; Z87.891 Personal history of nicotine dependence; D64.9 Anemia, unspecified; E87.8 Other disorders of electrolyte and fluid balance, not elsewhere classified; E11.65 Type 2 diabetes mellitus with hyperglycemia
CPT/HCPCS: 99222-AI; 99232-AI; 99239; A4216; A9540; A9567; J0696; J1644; J1815; J3370; J7030; J7050; J7512

== ENCOUNTER 2019-04-28 13:45 | Outpatient (RCR) | payer MEDICARE ==
[~2019-04-28 13:45] MED LIST changes: +ASPIRIN 81M81 MG/TA2 PO; +COREG 6.256.25 MG/TA PO; +LEXAPRO 5MG5 MG PO
== END 2019-07-05 ==
LOC: WSC
DX: M47.816 Spondylosis without myelopathy or radiculopathy, lumbar region (principal); M96.1 Postlaminectomy syndrome, not elsewhere classified

== ENCOUNTER 2019-05-11 14:27 | Outpatient (RCR) | payer MEDICARE | END 2019-05-19 | disposition home or self-care (01) | LOC: COL.CR | DX: Z48.812 Encounter for surgical aftercare following surgery on the circulatory system (principal); Z95.2 Presence of prosthetic heart valve; I35.0 Nonrheumatic aortic (valve) stenosis ==

== ENCOUNTER 2019-06-22 16:12 | Outpatient (RCR) | payer MEDICARE | END 2019-07-20 15:02 | disposition home or self-care (01) | LOC: COL.CR 16:12 | DX: Z48.812 Encounter for surgical aftercare following surgery on the circulatory system (principal); Z95.2 Presence of prosthetic heart valve; I35.0 Nonrheumatic aortic (valve) stenosis ==

== ENCOUNTER → 2020-02-10 | Outpatient (CLI) | payer MEDICARE ==
[~2020-02-10] MED LIST changes: +ASPI325T6 PO; +COLACE 100100 MG/CAP PO; +DULCOLAX S10 MG/SUPP RC; +GLUCOPHAGE XR500 M1 PO; +GOOD NEIGH1200 MG/15 PO; +LIPITOR 80MG80 MG PO; +NOVLOG SQ; +PERCOCET 325 MG1 TA2 PO; +TYLENOL 325MG325 MG PO; +XALATAN EYE DROPS OU
[2020-02-10 17:28] LABS: CALCIUM 9.9 mg/dL (8.4-10.2); CREATININE, serum 1.6 (0.66-1.25); POTASSIUM 4.7 mmol/L (3.4-5.0)
== END ==
LOC: ZCOL.LAB 16:43
PROVIDERS: Family Medicine
DX: N18.4 Chronic kidney disease, stage 4 (severe) (principal)

== ENCOUNTER 2020-12-20 11:00 | Outpatient (RCR) | payer MEDICARE ==
[2021-02-08] MEDS ORDERED: NOVOLOG FLEX100 U/ML SQ (09:09)
[2021-02-08] MEDS ORDERED: TYLENOL W/COD1 UDTAB PO (09:18)
[2021-02-08] MEDS ORDERED: ZYLOPRIM 300MG300 MG PO (09:19)
[2021-02-08] MEDS ORDERED: EPA FISH OIL1 SGL PO (09:23)
[2021-02-10] MEDS ORDERED: CUBICIN 500MG500 MG IV (14:00)
[2021-02-18] MEDS ORDERED: ELIQUIS 2.5 PO (09:19)
[2021-02-22] MEDS ORDERED: XARELTO15 MG PO (08:35)
[2021-03-22] MEDS ORDERED: ZYLOPRIM 300MG300 MG PO (20:45)
[2021-03-22] MEDS ORDERED: NEURONTIN300 MG/CAP PO (20:46)
[2021-03-22] MEDS ORDERED: LIPITOR 80MG80 MG PO (20:48)
[2021-03-22] MEDS ORDERED: MAGNESIUM250 M1 PO (20:48)
[2021-03-22] MEDS ORDERED: VITAMIN D31000 IU PO (20:50)
[2021-03-22] MEDS ORDERED: JUVEN1 PDR PO (20:53)
[2021-03-22] MEDS ORDERED: LOPRESSOR 550 MG/TAB PO (20:54)
[2021-03-22] MEDS ORDERED: VENELEX OINTMEN30 GM TP (20:55)
[2021-03-22] MEDS ORDERED: NOVOLOG 100U100 U/M1 SQ (20:58)
[2021-03-22] MEDS ORDERED: TYLENOL SU650 MG/SUP RC (21:07)
[2021-03-22] MEDS ORDERED: NORCO 325 MG-51 TAB PO (21:08)
== END 2020-12-21 | disposition still patient (30) ==
LOC: WSPT
DX: M25.561 Pain in right knee (principal)

== ENCOUNTER → 2021-01-18 | Outpatient (CLI) | payer MEDICARE ==
[~2021-01-18] MED LIST changes: +ATARAX 25MG25 MG/TAB PO; +BUMEX 1MG TA1 MG/TA1 PO; +COZAAR100 MG PO; +CUBICIN 500MG500 MG IV; +DESITIN MAXIMUM S40% TP; +DIFLUCAN 100MG100 MG PO; +ELIQUIS 2.5 PO; +FLOMAX 0.40.4 MG/CAP PO; +HYTRIN 2MG CAPSU2 MG PO; +JUVEN1 PDR PO; +KEPPRA 500MG500 MG PO; +LOPRESSOR 550 MG/TAB PO; +MAG-OX 400400 MG/TAB PO; +MYRBETR25MG PO; +NORVASC 5MG5 MG/TAB PO; +NOVOLOG 100U100 U/M1 SQ; +NOVOLOG FLEX100 U/ML SQ; +PACERONE200 MG PO; +PREDNISONE 2.52.5 MG PO; +ROBAXIN 75750 MG/TAB PO; +SALONPAS1 EACH TP; +SINEMET 25/101 UDTAB PO; +TOPROL XL100 MG PO; +TUMS500 MG PO; +TYLENOL SU650 MG/SUP RC; +VENELEX OINTMEN30 GM TP; +VITAMIN D31000 IU PO; +XARELTO15 MG PO; +ZOLOFT 50MG50 MG PO
== END ==
LOC: COL.RAD 08:15
DX: M48.061 Spinal stenosis, lumbar region without neurogenic claudication (principal); M51.26 Other intervertebral disc displacement, lumbar region; M47.816 Spondylosis without myelopathy or radiculopathy, lumbar region; Z98.890 Other specified postprocedural states
CPT/HCPCS: A9585

== ENCOUNTER 2021-01-30 09:16 | Inpatient (IN) | payer MEDICARE ==
[2021-01-30] VITALS (305 sets, daily range): BP systolic 77–113; BP diastolic 39–65; PULSE 105–122; TEMP 98.7–103; O2SAT 68–100
[~2021-01-30] VITALS: Ht 188 cm; Wt 127.6 kg
[~2021-01-30 09:16] MED LIST changes: -ATARAX 25MG25 MG/TAB PO; -BUMEX 1MG TA1 MG/TA1 PO; -COZAAR100 MG PO; -CUBICIN 500MG500 MG IV; -DESITIN MAXIMUM S40% TP; -DIFLUCAN 100MG100 MG PO; -ELIQUIS 2.5 PO; -FLOMAX 0.40.4 MG/CAP PO; -HYTRIN 2MG CAPSU2 MG PO; -JUVEN1 PDR PO; -KEPPRA 500MG500 MG PO; -LOPRESSOR 550 MG/TAB PO; -MAG-OX 400400 MG/TAB PO; -MYRBETR25MG PO; -NORVASC 5MG5 MG/TAB PO; -NOVOLOG 100U100 U/M1 SQ; -NOVOLOG FLEX100 U/ML SQ; -PACERONE200 MG PO; -PREDNISONE 2.52.5 MG PO; -ROBAXIN 75750 MG/TAB PO; -SALONPAS1 EACH TP; -SINEMET 25/101 UDTAB PO; -TOPROL XL100 MG PO; -TUMS500 MG PO; -TYLENOL SU650 MG/SUP RC; -VENELEX OINTMEN30 GM TP; -VITAMIN D31000 IU PO; -XARELTO15 MG PO; -ZOLOFT 50MG50 MG PO
[2021-01-30 10:54] LABS: COLLECTION METHOD CLEAN CATCH
[2021-01-30 11:10] LABS: PH 5 (5-8); SQUAMOUS EPITHELIAL None Seen /hpf; URINE APPEARANCE Clear; URINE BACTERIA None Seen /hpf; URINE BILIRUBIN Negative (NEGATIVE); URINE BLOOD Negative (NEGATIVE); URINE COLOR Yellow; URINE GLUCOSE 1+ (NEGATIVE); URINE KETONE Negative (NEGATIVE); URINE LEUKOCYTE ESTERASE Negative (NEGATIVE); URINE NITRATE Negative (NEGATIVE); URINE PROTEIN(semi-quant) 2+ (NEGATIVE); URINE RBC 0-2 /hpf; URINE UROBILINOGEN Negative (NEGATIVE)
[2021-01-30 11:43] LABS: BASO % 0.2 % (0.0-2.0); EOS # 0.1 (0.0-0.7); EOS % 0.6 % (0-4.0); GRAN # 17.3 (1.4-6.5); GRAN % 89.7 % (42.2-75.2); HEMOGLOBIN 11.2 g/dl (13.5-18.0); LYMPH # 1.1 (1.2-3.4); LYMPH % 5.4 % (20.0-51.0); MEAN CELL VOLUME 92 fl (80.0-100.0); MEAN CORPUSCULAR HEMOGLOBIN 29 pg (27.0-31.0); MEAN CORPUSCULAR HGB CONC 31 g/dl (33.0-37.0); MONO # 0.7 (0.1-0.6); MONO % 3.6 % (1.7-9.3); PLATELET COUNT 136 K/mm3 (130-400); RED BLOOD COUNT 3.93 M/mm3 (4.20-5.60); REDCELL DISTRIBUTION WIDTH-CV 16.4 % (11.5-14.5)
[2021-01-30 12:03] LABS: BILIRUBIN,TOTAL 0.7 mg/dL (0.0-1.0); CREATININE, serum 1.64 (0.66-1.25); POTASSIUM 3.9 mmol/L (3.4-5.0); TOTAL PROTEIN 5.5 gm/dL (6.4-8.2)
[2021-01-30 12:31] LABS: C-REACTIVE PROTEIN 4.3 mg/dL (0.0-0.9)
--- NOTE | 2021-01-30 14:43 | NUR ---
PT and are unsure of PTs daily medication. PCP to fax over.
[2021-01-30 15:31] LABS: INR 1.2 (0.8-3.0); PROTHROMBIN TIME 13.8 SECONDS (9.7-12.8)
[2021-01-30] MEDS ORDERED: ASPIRIN 81M81 MG/TA2 PO (17:49)
[2021-01-30] MEDS ORDERED: ATARAX 25MG25 MG/TAB PO (17:50)
[2021-01-30] MEDS ORDERED: COZAAR100 MG PO (17:50)
[2021-01-30] MEDS ORDERED: VITAMIN D31000 IU PO (17:53)
[2021-01-30] MEDS ORDERED: MYRBETR25MG PO (17:54)
[2021-01-30] MEDS ORDERED: FLOMAX 0.40.4 MG/CAP PO (17:55)
[2021-01-30] MEDS ORDERED: SALONPAS1 EACH TP (17:56)
[2021-01-30] MEDS ORDERED: HYTRIN 2MG CAPSU2 MG PO (17:57)
[2021-01-30] MEDS ORDERED: ROBAXIN 75750 MG/TAB PO (17:57)
--- NOTE | 2021-01-30 19:15 | NUR ---
Received report from RUDY Melton. Patient attempting to roll out of bed. He is short of breath on assessment, tachypneic, and breathing is labored at rest. Assisted patient into an upright position, which patient states helps somewhat. He is very restless. Danielle hospitalist, notified.
--- NOTE | 2021-01-30 19:30 | NUR ---
Received orders for Precedex from [facility] physician, Dr. Garcia. Linh, RN, notified hogshead wrecker, Dr. West.
--- NOTE | 2021-01-30 19:36 | NUR ---
Report given to RUDY Mcgarry.
--- NOTE | 2021-01-30 19:56 | NUR ---
Patient more restless, continues to attempt to get out of bed, stating, "I can't breathe." Hospitalist, Danielle, notified, who arrives at bedside within a few minutes to assess patient. Precedex drip is titrated according to orders. Patient repositioned and supported in an upright position with pillows. Received orders to obtain a STAT ABG. RTByron, notified.
[2021-01-30 20:22] LABS: ARTERIAL BLD GAS TCO2 CT 23.9; ARTERIAL BLOOD GAS BASE EXCESS -1.9 (-2-2); ARTERIAL BLOOD GAS HCO3 22.7 meq/L (22-26); ARTERIAL BLOOD GAS PCO2 38.5 mmHg (35-45); ARTERIAL BLOOD GAS PO2 109.3 mmHg (80-100); ARTERIAL BLOOD GAS pH 7.39 (7.35-7.45)
[2021-01-31] VITALS (622 sets, daily range): BP systolic 96–134; BP diastolic 56–96; PULSE 63–89; TEMP 97.9–99; O2SAT 76–100
[2021-01-31 04:29] LABS: HEMATOCRIT 37.4 % (42.0-52.0); HEMOGLOBIN 11.5 g/dl (13.5-18.0); MEAN CELL VOLUME 91 fl (80.0-100.0); MEAN CORPUSCULAR HEMOGLOBIN 28 pg (27.0-31.0); MEAN CORPUSCULAR HGB CONC 31 g/dl (33.0-37.0); MEAN PLATELET VOLUME 10.8 fl (7.4-10.4); PLATELET COUNT 157 K/mm3 (130-400); REDCELL DISTRIBUTION WIDTH-CV 16.8 % (11.5-14.5)
[2021-01-31 04:38] LABS: ALBUMIN 3.1 gm/dL (3.5-5.0); BILIRUBIN,TOTAL 0.7 mg/dL (0.0-1.0); CALCIUM 8.3 mg/dL (8.4-10.2); CREATININE, serum 3.35 (0.66-1.25); TOTAL PROTEIN 5.7 gm/dL (6.4-8.2)
[2021-01-31 04:49] LABS: ANISOCYTOSIS 1+; BAND 17 % (0-10); HYPOCHROMIA 3+; LYMPHOCYTE 1 % (20.0-51.0); METAMYELOCYTE 2 % (0-0); NEUTROPHILS 79 % (42.0-75.2); PLATELET ESTIMATE NORMAL (NORMAL)
[2021-01-31 04:50] LABS: OVALOCYTES 1+; POIKILOCYTOSIS 1+; SCHISTOCYTES 1+
[2021-01-31 04:52] LABS: POTASSIUM 5.8 mmol/L (3.4-5.0); TROPONIN-I 0.192 ng/mL (0.000-0.035)
--- NOTE | 2021-01-31 06:28 | NUR ---
Patient's , claudia Benites. Denies any questions at this time.
--- NOTE | 2021-01-31 07:15 | NUR ---
Report given to RUDY Quick.
--- NOTE | 2021-01-31 09:48 | NUR ---
The patient was placed on a bipap. FRANKLYN met with the patient's son, Prem (ph#[phone]), to discuss discharge plan. The patient lives in [place] with his , Delmis (ph#[phone]). Prem reports that the patient was fairly independent with ADLs before being admitted and that he has a walker and shower chair. The patient's PCP is Dr. Jeremy Henao and he receives his medications from [facility]. The patient does not have a DPOA-HC in EMR. Prem was unsure if the patient has a DPOA-HC completed. FRANKLYN to ask for PT/OT to be ordered. SW to continue to follow. *Discharge plan: unknown at this time, will await therapy recs*
--- NOTE | 2021-01-31 10:35 | NUR ---
First visit from the masonry instructor. Chaplain cavanaugh for patient outside their door.
[2021-01-31 10:55] LABS: ARTERIAL BLD GAS O2 SATURATION 98.6 % (92-100); ARTERIAL BLD GAS TCO2 CT 19.2; ARTERIAL BLOOD GAS BASE EXCESS -4.4 (-2-2); ARTERIAL BLOOD GAS HCO3 18.4 meq/L (22-26); ARTERIAL BLOOD GAS PCO2 27.6 mmHg (35-45); ARTERIAL BLOOD GAS pH 7.44 (7.35-7.45)
[2021-01-31 10:56] LABS: ARTERIAL BLOOD GAS PO2 129.1 mmHg (80-100)
--- NOTE | 2021-01-31 12:53 | NUR ---
SPOKE WITH AND AND THEY ASKED TO HAVE CARDIOLOGY CONSIDER A JESSICA TO RULE OUT VEGITATION. RAMESH TAI WITH NOTIFIED.
--- NOTE | 2021-01-31 14:48 | NUR ---
[facility] NOTIFIED OF PLANS FOR JESSICA TOMORROW. STATED THEY COULD DO 0800. RAMESH TAI NOTIFIED. PAPERWORK FAXED TO [facility].
[2021-02-01] VITALS (786 sets, daily range): BP systolic 103–162; BP diastolic 65–89; PULSE 75–157; TEMP 98.3–99.3; O2SAT 49–100
[2021-02-01 05:20] LABS: HEMOGLOBIN 10.1 g/dl (13.5-18.0); MEAN CELL VOLUME 90 fl (80.0-100.0); MEAN CORPUSCULAR HEMOGLOBIN 28 pg (27.0-31.0); MEAN CORPUSCULAR HGB CONC 31 g/dl (33.0-37.0); MEAN PLATELET VOLUME 11.7 fl (7.4-10.4); PLATELET COUNT 119 K/mm3 (130-400); RED BLOOD COUNT 3.64 M/mm3 (4.20-5.60); REDCELL DISTRIBUTION WIDTH-CV 16.8 % (11.5-14.5)
[2021-02-01 05:21] LABS: ALBUMIN 2.8 gm/dL (3.5-5.0); BILIRUBIN,TOTAL 0.5 mg/dL (0.0-1.0); CALCIUM 7.9 mg/dL (8.4-10.2); CREATININE, serum 4.65 (0.66-1.25); TOTAL PROTEIN 5.4 gm/dL (6.4-8.2)
[2021-02-01 05:26] LABS: HEMATOCRIT 32.6 % (42.0-52.0)
[2021-02-01 05:39] LABS: TROPONIN-I 0.131 ng/mL (0.000-0.035)
[2021-02-01 05:55] LABS: ANISOCYTOSIS 1+; BAND 34 % (0-10); HYPOCHROMIA 2+; LYMPHOCYTE 6 % (20.0-51.0); NEUTROPHILS 57 % (42.0-75.2); OVALOCYTES 2+; PLATELET ESTIMATE DECREASED (NORMAL)
--- NOTE | 2021-02-01 07:26 | NUR ---
Report given to RUDY Vo.
--- NOTE | 2021-02-01 08:00 | NUR ---
PATIENT FOUND IN BED AWAKE ALERT, DENIES PAIN OR NAUSEA. PRIVATE CLIENT ADVISOR AT BEDSIDE TO REVIEW JESSICA PROCEDURE, CONSENT REVIEWED AND SIGNED. HEART SOUNDS REGULAR, LUNG SOUNDS DIMINISHED, BOWEL SOUNDS AUDIBLE. MENDEZ IN PLACE, DRAINING YELLOW URINE. PICC LINE IN PLACE TO RIGHT UPPER ARM, FLUIDS INFUSING PER ORDERS. PER OVERNIGHT SHIFT INSULIN DRIP TURNED OFF, BLOOD SUGAR 170. PATIENT REQUESTING BEDPAN, MEDIUM SOFT STOOL. REDNESS AND SWELLING NOTED TO RIGHT LOWER LEG. CONTACT PRECAUTIONS MAINTAINED, ALL SAFETY MAINTAINED, WILL MONITOR.
--- NOTE | 2021-02-01 09:03 | NUR ---
EEG COMPLETE, PATIENT DENIES DISCOMFORT. SPO2 WNL ON ROOM AIR. VITAL SIGNS STABLE. WILL MONITOR.
--- NOTE | 2021-02-01 09:45 | NUR ---
PATIENT HR JUMPED UP TO 190'S IRREGULAR. DR. BARNETT MADE AWARE ORDERED STAT EKG. RESPIRATORY MADE AWARE.
--- NOTE | 2021-02-01 09:55 | NUR ---
DR. BARNETT MADE AWARE OF EKG RESULTS, AFIB RVR, TELEPHONE ORDERS PLACED FOR AMIODORONE 150MG IV OVER 15 MINUTES, FOLLOWED BY A DRIP OF 1MG/MIN FOR 6HRS, FOLLOWED BY A DRIP OF 0.5MG/MIN FOR 18 HOURS. ORDERS READ BACK AND CONFIRMED. WILL CONTINUE TO MONITOR.
--- NOTE | 2021-02-01 14:45 | NUR ---
PATIENT SIGNED CONSENT FOR CARDIOVERSION, DR. BARNETT AT BEDSIDE TO EXPLAIN PROCEDURE. PATIENT REMAINS IN AFIB. CHIEF TRANSFER AND PUMPHOUSE OPERATOR AT BEDSIDE FOR SEDATION. TIME OUT CALLED.
--- NOTE | 2021-02-01 15:01 | NUR ---
AFTER ONE SHOCK PATIENT CONVERTED INTO NSR, QUICKLY AFTER THAT WENT BACK INTO AFIB. SECOND SHOCK DELIVERED PATIENT IN NSR. VITAL SIGNS STABLE AT THIS TIME. PATIENT REMAINS SLIGHTLY DROWSY. CONTINUES WITH OXYGEN VIA MASK AT 6L. WILL MONITOR.
[2021-02-02] VITALS (1115 sets, daily range): BP systolic 123–148; BP diastolic 69–121; PULSE 71–136; TEMP 97.7–98.6; O2SAT 69–100
[2021-02-02 05:16] LABS: MEAN CELL VOLUME 89 fl (80.0-100.0); MEAN CORPUSCULAR HGB CONC 32 g/dl (33.0-37.0); MEAN PLATELET VOLUME 11.4 fl (7.4-10.4); PLATELET COUNT 104 K/mm3 (130-400); RED BLOOD COUNT 3.39 M/mm3 (4.20-5.60); REDCELL DISTRIBUTION WIDTH-CV 16.7 % (11.5-14.5)
[2021-02-02 05:19] LABS: HEMATOCRIT 30.2 % (42.0-52.0); HEMOGLOBIN 9.6 g/dl (13.5-18.0); MEAN CORPUSCULAR HEMOGLOBIN 28 pg (27.0-31.0)
[2021-02-02 05:34] LABS: ALBUMIN 2.8 gm/dL (3.5-5.0); BILIRUBIN,TOTAL 0.3 mg/dL (0.0-1.0); CALCIUM 7.2 mg/dL (8.4-10.2); CREATININE, serum 5.26 (0.66-1.25); POTASSIUM 3.9 mmol/L (3.4-5.0); TOTAL PROTEIN 5.3 gm/dL (6.4-8.2)
[2021-02-02 05:39] LABS: ANISOCYTOSIS 1+; BAND 3 % (0-10); HYPOCHROMIA 2+; LYMPHOCYTE 7 % (20.0-51.0); NEUTROPHILS 89 % (42.0-75.2); PLATELET ESTIMATE DECREASED (NORMAL)
[2021-02-02 05:40] LABS: OVALOCYTES 1+
--- NOTE | 2021-02-02 07:00 | NUR ---
PATIENT ACTIVE THROUGOUT NIGHT. TURNING FREQUENTLY AND REPOSITIONING LEGS WHICH WE ELEVATED ON PILLOWS FOR SWELLING. PT TOLERATED AND ASSISTED IN BED BATH.PT C/O BITS OF BLOOD WHEN HE WIPED HIS NOSE SO FLONASE WAS ORDERED AND REPORTEDLY HELPED PT WITH THE IRRITATION. VSS OVERNIGHT, AFEBRILE WITH NO PAIN. PT AWARE OF PLAN OF CARE WITH IV ANTIBIOTICS AND AMIO. REPORT GIVEN TO EDMOND AND CARE RELINQUISHED AT THIS TIME.
[2021-02-02 09:19] LABS: MAGNESIUM 1.8 mg/dL (1.6-2.3); PHOSPHOROUS 6.4 mg/dL (2.5-4.5)
--- NOTE | 2021-02-02 09:50 | NUR ---
PATIENT FOUND WITH A HR OF 140, IRREGULAR. DR. BARNETT MADE AWARE ORDERS RECIEVED FOR AMIODORAONE BOLUS OF 150MG OVER 15MINUTES AND METOPROLOL 12.5. ORDERS READ BACK AND CONFIRMED, WILL MONITOR.
--- NOTE | 2021-02-02 11:45 | NUR ---
ORDERS RECIEVED FROM DR. BLANCO TO DECREASE ELIQUIS TO 2.5MG BID STARTING TOMORROW.
[2021-02-02 12:03] LABS: CREATININE, serum 5.07 (0.66-1.25)
[2021-02-02 12:50] LABS: SODIUM 133 mmol/L (137-145)
--- NOTE | 2021-02-02 16:00 | NUR ---
PATIENT BROUGHT INTO ICU DIRECT ADMIT FROM PCP. PATIENT AMBULATED TO BED WITHOUT DIFFICULTY. PLACED ON MONITORS, BP 128/89. VITAL SIGNS WNL. HEART SOUNDS REGULAR, LUNG SOUNDS DIMINISHED IN BASES, BOWEL SOUNDS AUDIBLE. IV STARTED TO LEFT HAND, FLUIDS INFUSING PER ORDERS. X RAY AND LAB AT BEDSIDE. HISTORY AND MEDICATIONS REVIEWED. BILATERAL NON PITTING EDEMA NOTED TO LOWER EXTREMITIES. CALL [place] WITHIN REACH, WILL MONITOR.
--- NOTE | 2021-02-02 19:23 | NUR ---
RECEIVED REPORT FROM RUDY PRUITT. PATIENT RESTING IN BED WATCHING TV WITH FAMILY () AT BEDSIDE. MENDEZ CATHETER IN PLACE PATENT, DRAINING TO GRAVITY WITH NO DEPENDENT LOOPS OR KINKS. CALL LIGHT WITHIN REACH. SOME CONCERNS FOR BLOOD PRESSURE. WILL BE CONTACTING PA FOR ASSISTANCE. AMIODARONE RUNNING AT 0.5MG.
[2021-02-03] VITALS (1172 sets, daily range): BP systolic 96–167; BP diastolic 73–121; PULSE 74–150; TEMP 97.2–98.5; O2SAT 62–100
--- NOTE | 2021-02-03 07:40 | NUR ---
Patient awake in bed ; alert and oriented. Awaiting cardioversion so that he can drink as states his mouth is very dry. Otherwise stable with no complaints. Mouth swabs provided. Will continue to monitor.
--- NOTE | 2021-02-03 08:00 | NUR ---
Patient opens eyes spontaneously; able to squeeze this nurse's hands and wiggle toes on command. Will continue to monitor. VS stable will continue to monitor.
[2021-02-03 08:02] LABS: BASO % 0.1 % (0.0-2.0); EOS % 0.1 % (0-4.0); GRAN # 11.3 (1.4-6.5); GRAN % 89.1 % (42.2-75.2); LYMPH # 0.9 (1.2-3.4); LYMPH % 6.8 % (20.0-51.0); MEAN CELL VOLUME 89 fl (80.0-100.0); MEAN CORPUSCULAR HGB CONC 31 g/dl (33.0-37.0); MEAN PLATELET VOLUME 12.5 fl (7.4-10.4); MONO # 0.4 (0.1-0.6); MONO % 3.1 % (1.7-9.3); PLATELET COUNT 122 K/mm3 (130-400); RED BLOOD COUNT 3.61 M/mm3 (4.20-5.60); REDCELL DISTRIBUTION WIDTH-CV 16.7 % (11.5-14.5)
[2021-02-03 08:04] LABS: HEMATOCRIT 32.2 % (42.0-52.0); HEMOGLOBIN 9.9 g/dl (13.5-18.0); MEAN CORPUSCULAR HEMOGLOBIN 27 pg (27.0-31.0)
[2021-02-03 08:08] LABS: CALCIUM 7.4 mg/dL (8.4-10.2); CREATININE, serum 5.27 (0.66-1.25); POTASSIUM 3.7 mmol/L (3.4-5.0)
--- NOTE | 2021-02-03 08:38 | NUR ---
Dr. Kamara at bedside to see patient.
--- NOTE | 2021-02-03 09:09 | NUR ---
Patient alert and oriented. Able to follow commands appropriatly. Tolerated procedure well. Oxygenating at 99% on RA. Patient in Sinus Rhythm after 3 shocks. Will continue to monitor.
--- NOTE | 2021-02-03 11:18 | NUR ---
Lenny, with PT, notified SW that the patient would be a good candidate for IPR. FRANKLYN met with the patient and his , Delmis, to discuss PT's recommendation and post-acute rehab. The patient reports that he does not want to do rehab. He reports that he has been to [facility] and does not want to go to back. SW informed him and his of IPR in the hospital. The patient's expressed interest in IPR and was okay with SW going ahead and giving IPR a referral. Her and the patient would like to see how the patient does in the next couple of days, before deciding on if they want to pursue IPR or not. FRANKLYN updated the hospitalist. The patient may be able to transfer up to the medical floor later today or tomorrow. FRANKLYN consulted IPR Director, Marita. *Discharge plan: IPR vs home with *
--- NOTE | 2021-02-03 14:53 | NUR ---
Notified by alarm service technician that patient's HR in the 140's appears to be A-fib RVR. Patient alert and oriented. Denies any chest pain or shortness of breath. Reports slight dizziness but states that he only noticied this after mulptile people asked him if he was feeling alright and stated that his heart went back into A-fib RVR. BP stable. EKG obtained which confirmed A-fib RVR. Cardiology notified. Changed metoprolol from BID to q 6hr. Goal for HR of around 100 and to maintain adaquate BP. Will continue to monitor.
--- NOTE | 2021-02-03 15:00 | NUR ---
Hospitalist notified of rhythm change. No furter orders received at this time.
--- NOTE | 2021-02-03 20:00 | NUR ---
Assessment complete. Pt is AXO X3, denies having any pain at this time. Pt is sitting up in the bed watching TV at this time and he denies further needs. Call light within reach.
[2021-02-04] VITALS (869 sets, daily range): BP systolic 106–140; BP diastolic 71–88; PULSE 117–127; TEMP 97.7–98.1; O2SAT 73–100
[2021-02-04 05:57] LABS: BASO % 0.1 % (0.0-2.0); EOS # 0.2 (0.0-0.7); EOS % 1.4 % (0-4.0); GRAN # 9.1 (1.4-6.5); GRAN % 80.9 % (42.2-75.2); HEMOGLOBIN 10.7 g/dl (13.5-18.0); LYMPH # 1.2 (1.2-3.4); LYMPH % 10.6 % (20.0-51.0); MEAN CELL VOLUME 88 fl (80.0-100.0); MEAN CORPUSCULAR HEMOGLOBIN 28 pg (27.0-31.0); MEAN CORPUSCULAR HGB CONC 32 g/dl (33.0-37.0); MEAN PLATELET VOLUME 11.9 fl (7.4-10.4); MONO # 0.7 (0.1-0.6); PLATELET COUNT 135 K/mm3 (130-400); RED BLOOD COUNT 3.84 M/mm3 (4.20-5.60); REDCELL DISTRIBUTION WIDTH-CV 16.7 % (11.5-14.5)
[2021-02-04 05:59] LABS: HEMATOCRIT 33.9 % (42.0-52.0)
[2021-02-04 06:06] LABS: CALCIUM 8.3 mg/dL (8.4-10.2); CREATININE, serum 5.63 (0.66-1.25); POTASSIUM 3.8 mmol/L (3.4-5.0)
--- NOTE | 2021-02-04 07:35 | NUR ---
Bedside shift report given to RUDY Santos.
--- NOTE | 2021-02-04 07:45 | NUR ---
PT in room with patient. Transfers to chair with walker and 1:1 assist. Large, loose stool. Patient complains of back pain, "not bad but it's there." Call light in reach, denies needs at this time.
--- NOTE | 2021-02-04 10:45 | NUR ---
Patient's son states patient has been complaining about his dentures not fitting and asked if it would be ok for his dentist to come up and size his dentures. Dr. Ellington states no issue with this. Dr. Zulma Farmer here and resized patient's dentures at the bedside. No further needs at this time
[2021-02-04 13:51] LABS: CLOSTRIDIUM DIFF A/B NEG; CLOSTRIDIUM DIFF A/B INTERP No C.diff present
--- NOTE | 2021-02-04 18:07 | NUR ---
Patient continues to sit up in chair, watching TV. in room, updates given. Patient states "I feel so much better, I think I'm ready to go home."
--- NOTE | 2021-02-04 20:00 | NUR ---
Assessment complete. Pt is AXO X3, denies having any pain at this time. Pt is sitting up in the chair watching TV at this time and he denies further needs. Call light within reach.
[2021-02-05] VITALS (8 sets, daily range): BP systolic 104–158; BP diastolic 62–90; PULSE 52–109; TEMP 97.3–98.4; O2SAT 96
--- NOTE | 2021-02-05 01:45 | NUR ---
ADMITTED TO ROOM 324 PER W/C FROM ICU. TELEMETRY INTACT. LAXIS GTT AT 11CC/HR PER PUMP TO PICC RT ARM. 2:1 ASSIST TO BR. VERY UNSTEADY AND SHAKY GAIT. HAD SMALL DARK STOOL. ORIENTED TO ROOM AND STAFF. CALL LIGHT IN REACH. BED ALARM SET.
--- NOTE | 2021-02-05 01:55 | NUR ---
Pt transferred from ICU to room 324 at this time via WC with this nurse. Bedside shift report given to RUDY Carlos.
--- NOTE | 2021-02-05 03:19 | NUR ---
PT SLEEPING. NO DISTRESS.
[2021-02-05 06:28] LABS: HEMOGLOBIN 10.9 g/dl (13.5-18.0); MEAN CELL VOLUME 89 fl (80.0-100.0); MEAN CORPUSCULAR HEMOGLOBIN 28 pg (27.0-31.0); MEAN CORPUSCULAR HGB CONC 31 g/dl (33.0-37.0); MEAN PLATELET VOLUME 12.3 fl (7.4-10.4); PLATELET COUNT 173 K/mm3 (130-400); RED BLOOD COUNT 3.95 M/mm3 (4.20-5.60); REDCELL DISTRIBUTION WIDTH-CV 16.4 % (11.5-14.5)
[2021-02-05 06:38] LABS: CALCIUM 8.7 mg/dL (8.4-10.2); CREATININE, serum 5.44 (0.66-1.25); HEMATOCRIT 35.1 % (42.0-52.0); POTASSIUM 3.6 mmol/L (3.4-5.0)
[2021-02-05 07:23] LABS: ANISOCYTOSIS 1+; BAND 2 % (0-10); EOSINOPHIL 3 % (0-4); HYPOCHROMIA 2+; LYMPHOCYTE 8 % (20.0-51.0); NEUTROPHILS 77 % (42.0-75.2); PLATELET ESTIMATE NORMAL (NORMAL)
[2021-02-05 07:24] LABS: OVALOCYTES 1+
--- NOTE | 2021-02-05 18:12 | NUR ---
Patient resting in bedside recliner at this time. Patient is alert and oriented, answers questions appropriately. Elias removed per order. 10ml of water removed from balloon, catheter tip intact, patient tolerated procedure well. Patient denies pain or needs, call light within reach.
--- NOTE | 2021-02-05 20:00 | NUR ---
PT SITTING UP IN RECLINER. WATCHING TV. NO COMPLAINTS. CONTINUED MRSA PRECAUTIONS.
[2021-02-06] VITALS (7 sets, daily range): BP systolic 101–136; BP diastolic 64–89; PULSE 49–102; TEMP 97.5–98.2
--- NOTE | 2021-02-06 04:43 | NUR ---
PT RELATES BED UNCOMFORTABLE. SLEPT IN CHAIR MOST OF THE NIGHT.
[2021-02-06 06:35] LABS: HEMOGLOBIN 11.4 g/dl (13.5-18.0); MEAN CELL VOLUME 89 fl (80.0-100.0); MEAN CORPUSCULAR HEMOGLOBIN 28 pg (27.0-31.0); MEAN CORPUSCULAR HGB CONC 31 g/dl (33.0-37.0); MEAN PLATELET VOLUME 12.1 fl (7.4-10.4); PLATELET COUNT 222 K/mm3 (130-400); RED BLOOD COUNT 4.08 M/mm3 (4.20-5.60); REDCELL DISTRIBUTION WIDTH-CV 16.7 % (11.5-14.5)
[2021-02-06 06:40] LABS: CALCIUM 8.8 mg/dL (8.4-10.2); CREATININE, serum 5.42 (0.66-1.25); POTASSIUM 3.7 mmol/L (3.4-5.0)
[2021-02-06 06:53] LABS: HEMATOCRIT 36.3 % (42.0-52.0)
--- NOTE | 2021-02-06 07:00 | NUR ---
AFTER DOING REPORT ASKED PT IF HE WAS HAVING PAIN OR DISCOMFORT, PT REPLIED "I JUST FEEL DISGUSTED, ABSOLUTELY DISGUSTED". WHEN ATTEMPTING TO GET MORE INFORMATION OUT OF PT HE REMAINED SILENT. PT REPORTED NOT SLEEPING WELL, EGGSHELL MATTRESS COVER OFFERED MULTIPLE TIMES AND PT REFUSED.
[2021-02-06 07:21] LABS: BASOPHIL 1 % (0-2); EOSINOPHIL 1 % (0-4); LYMPHOCYTE 21 % (20.0-51.0); NEUTROPHILS 76 % (42.0-75.2)
[2021-02-06 07:22] LABS: PLATELET ESTIMATE NORMAL (NORMAL)
[2021-02-06 07:24] LABS: HYPOCHROMIA 2+
[2021-02-06 07:25] LABS: ANISOCYTOSIS 1+; TEAR DROP CELLS 1+
--- NOTE | 2021-02-06 09:00 | NUR ---
PT AOX4, ASSESSMENT PERFORMED, MEDICATIONS GIVEN, ABD FIRM AND ROUND AND PT REPORTS BM 02/05/21. CAPS CHANGED ON PICC LINE AND PICC FLUSHED. BLE EDEMETOUS 3+, PT REPORTS LITTLE SLEEP THE NIGHT BEFORE, DENIES NEED FOR ANY MEDICATIONS TO ASSIST WITH SLEEPING, CALL LIGHT WITHIN REACH, PT UP TO CHAIR, MEDICATIONS GIVEN, HELD NOVOLOG DUE TO NPO STATUS, PT DENIES PAIN/DISCOMFORT, UPDATED PT AND PT'S SON ON MORNING LABS AND POTENTIAL CARDIOVERSION TODAY, PHYSICAL THERAPY TO WORK WITH PT I EXITED. NO OTHER NEEDS.
--- NOTE | 2021-02-06 11:02 | NUR ---
PT'S REQUESTING MEDICATION FOR DEPRESSION FOR PT, ALSO REQUESTING INFORMATION ON DISCHARGE. UPDATED ON LAB VALUES FOR AM.
--- NOTE | 2021-02-06 12:32 | NUR ---
PT APPEARS TO BE IN A BETTER MOOD WITH PRESENT, PT ORDERED LUNCH, INSULIN GIVEN AND PT BEGAN EATING STRAWBERRIES HAD BROUGHT IN FOR HIM A SNACK.
--- NOTE | 2021-02-06 15:29 | NUR ---
Study Director attended clinical rounds with the team. The patient's , Delmis was present and the patient's son, Prem (on speaker phone). After rounds, SW met with Delmis, Prem (speakerphone) and patient to discuss the discharge plan. The patient is declining post acute rehab and home health, he wants to go home. The patient will likely be needing IV antibiotics at discharge and this SW discussed the options. They would like to use the [facility] for the IV antiobiotics. The patient may also consider OP PT. SW collaborated the above information with the patient's nurse.
--- NOTE | 2021-02-06 18:02 | NUR ---
PT PLEASANT AT THIS TIME, MEDICATIONS GIVEN DURING SHIFT, PT UP TO CHAIR, PT EATING DINNER AT THIS TIME. DENIES PAIN, AT BEDSIDE, CALL LIGHT WITHIN REACH, NO OTHER NEEDS
--- NOTE | 2021-02-06 20:00 | NUR ---
PT IS CALM IN THE ROOM ON RA.AOX4,DENIES PAIN.ASSESSMENT DONE.NO OTHER NEEDS AT THIS TIME.
[2021-02-07 02:07] VITALS: BP 129/53; PULSE 49; TEMP 97.4
--- NOTE | 2021-02-07 04:56 | NUR ---
PATIENT HAD A RESTFUL NIGHT.REPORTS OF BACKPAIN FROM LYING IN BED.TYLENOL GIVEN.NO ANY OTHER CONCERNS RAISED.
[2021-02-07 06:44] LABS: HEMOGLOBIN 11.1 g/dl (13.5-18.0); MEAN CELL VOLUME 89 fl (80.0-100.0); MEAN CORPUSCULAR HEMOGLOBIN 28 pg (27.0-31.0); MEAN CORPUSCULAR HGB CONC 32 g/dl (33.0-37.0); MEAN PLATELET VOLUME 12.2 fl (7.4-10.4); PLATELET COUNT 235 K/mm3 (130-400); RED BLOOD COUNT 3.95 M/mm3 (4.20-5.60); REDCELL DISTRIBUTION WIDTH-CV 16.4 % (11.5-14.5)
[2021-02-07 06:56] LABS: ALBUMIN 3.3 gm/dL (3.5-5.0); CALCIUM 8.4 mg/dL (8.4-10.2); CREATININE, serum 5.37 (0.66-1.25); POTASSIUM 3.8 mmol/L (3.4-5.0)
[2021-02-07 06:58] LABS: PHOSPHOROUS 9.2 mg/dL (2.5-4.5)
[2021-02-07 07:22] LABS: BAND 3 % (0-10); EOSINOPHIL 2 % (0-4); LYMPHOCYTE 18 % (20.0-51.0); METAMYELOCYTE 2 % (0-0); NEUTROPHILS 68 % (42.0-75.2); OVALOCYTES 1+; PLATELET ESTIMATE NORMAL (NORMAL); SCHISTOCYTES 1+; TEAR DROP CELLS 1+
--- NOTE | 2021-02-07 08:00 | NUR ---
PATIENT IS A&O. VSS. PATIENT SITTING UP IN BED WITH BREAKFAST TRAY. AM MEDS GIVEN. HEAD TO TOE ASSESSMENT COMPLETE. RIGHT UPPER ARM PICC LINE TO INT. PATIENT HOPING TO DISCHARGE LATER TODAY.
[2021-02-07 09:21] VITALS: BP 129/53; PULSE 96; TEMP 97.1
[2021-02-07] MEDS ORDERED: TUMS500 MG PO (10:55)
[2021-02-07] MEDS ORDERED: ELIQUIS 2.5 PO (10:59)
[2021-02-07] MEDS ORDERED: TOPROL XL100 MG PO (11:00)
[2021-02-07] MEDS ORDERED: NORVASC 5MG5 MG/TAB PO (11:00)
[2021-02-07] MEDS ORDERED: TYLENOL 325MG325 MG PO (11:01)
[2021-02-07] MEDS ORDERED: CUBICIN 500MG500 MG IV (11:03)
[2021-02-07] MEDS ORDERED: CORDARONE200 MG/TAB PO (11:04)
[2021-02-07 12:04] VITALS: BP 134/51; PULSE 50; TEMP 98
--- NOTE | 2021-02-07 12:20 | NUR ---
HOSPITALIST TEAM VERY BUST, REMINDED THEM FOR AN ORDER FOR COUGH DROP. SEE ORDER.
--- NOTE | 2021-02-07 14:10 | NUR ---
The patient to discharge home with spouse Delmis today, 02/07. The patient will have OP PT/OT at [facility]. Seismograph Shooter faxed discharge orders to Shwetha at [facility]. The patient will be needing 3 weeks of IV antibiotics every 48 hours plus labs and PICC cares. The patient chose to have those services at [facility]. SW provided discharge orders and script to [facility]. The patient to start on Saturday, 02/08 at 0830. The patient and Delmis were in agreeance with the above plan. SW met with the patient to present the IM form. The patient verbalized agreement and gave this SW persmission to sign the form on his behalf. A copy was provided to the patient and the original was placed in chart. SW collaborated the above information with the above plan. There are no additional needs.
--- NOTE | 2021-02-07 15:45 | NUR ---
PATIENT'S HERE AND PATIENT IS DISCHARGING HOME WITH RIGHT UPPER ARM PICC LINE. [facility] ARRANGED OUTPATIENT IV ABX THROUGH [facility]. GAVE DISCHARGE INSTRUCTIONS, E-SCRIPTS SENT TO PHARMACY, ANTIOBIOTIC SCRIPT PRINTED AND GIVEN TO PATIENT, AND F/U APTS DISCUSSED. PATIENT IS DRESSED, PACKED AND ESCORTED OUT.
[2021-02-08] MEDS ORDERED: NOVOLOG FLEX100 U/ML SQ (09:09)
[2021-02-08] MEDS ORDERED: TYLENOL W/COD1 UDTAB PO (09:18)
[2021-02-08] MEDS ORDERED: ZYLOPRIM 300MG300 MG PO (09:19)
[2021-02-08] MEDS ORDERED: EPA FISH OIL1 SGL PO (09:23)
[2021-02-10] MEDS ORDERED: CUBICIN 500MG500 MG IV (14:00)
[2021-02-18] MEDS ORDERED: ELIQUIS 2.5 PO (09:19)
[2021-02-22] MEDS ORDERED: XARELTO15 MG PO (08:35)
[2021-03-22] MEDS ORDERED: ZYLOPRIM 300MG300 MG PO (20:45)
[2021-03-22] MEDS ORDERED: NEURONTIN300 MG/CAP PO (20:46)
[2021-03-22] MEDS ORDERED: MAGNESIUM250 M1 PO (20:48)
[2021-03-22] MEDS ORDERED: LIPITOR 80MG80 MG PO (20:48)
[2021-03-22] MEDS ORDERED: VITAMIN D31000 IU PO (20:50)
[2021-03-22] MEDS ORDERED: JUVEN1 PDR PO (20:53)
[2021-03-22] MEDS ORDERED: LOPRESSOR 550 MG/TAB PO (20:54)
[2021-03-22] MEDS ORDERED: VENELEX OINTMEN30 GM TP (20:55)
[2021-03-22] MEDS ORDERED: NOVOLOG 100U100 U/M1 SQ (20:58)
[2021-03-22] MEDS ORDERED: TYLENOL SU650 MG/SUP RC (21:07)
[2021-03-22] MEDS ORDERED: NORCO 325 MG-51 TAB PO (21:08)
== END 2021-02-07 15:45 | disposition home or self-care (01) | DRG 871 ==
LOC: COL.ER 09:16 → ICU 13:18 → SURG 02-05 02:06
PROVIDERS: Family Medicine; Internal Medicine Nephrology; Internal Medicine Pulmonary Disease; Nurse Practitioner; Physician Assistant; Student in an Organized Health Care Education/Training Program; ADMIT Hospitalist
PROC: 02HV33Z Insertion of Infusion Device into Superior Vena Cava, Percutaneous Approach (ICD-10-PCS; 2021-01-30)
PROC: 5A2204Z Restoration of Cardiac Rhythm, Single (ICD-10-PCS; 2021-02-01)
PROC: 5A2204Z Restoration of Cardiac Rhythm, Single (ICD-10-PCS; principal; 2021-02-03)
DX: A41.02 Sepsis due to Methicillin resistant Staphylococcus aureus (principal); J96.01 Acute respiratory failure with hypoxia; G93.41 Metabolic encephalopathy; I21.A1 Myocardial infarction type 2; I50.23 Acute on chronic systolic (congestive) heart failure; N17.9 Acute kidney failure, unspecified; I13.0 Hypertensive heart and chronic kidney disease with heart failure and stage 1 through stage 4 chronic kidney disease, or unspecified chronic kidney disease; E11.22 Type 2 diabetes mellitus with diabetic chronic kidney disease; N18.30 Chronic kidney disease, stage 3 unspecified; I48.91 Unspecified atrial fibrillation; F32.9 Major depressive disorder, single episode, unspecified; F41.9 Anxiety disorder, unspecified; D69.6 Thrombocytopenia, unspecified; D50.0 Iron deficiency anemia secondary to blood loss (chronic); E78.5 Hyperlipidemia, unspecified; E87.5 Hyperkalemia; D64.9 Anemia, unspecified; M48.00 Spinal stenosis, site unspecified; M35.3 Polymyalgia rheumatica; D63.1 Anemia in chronic kidney disease; Z79.01 Long term (current) use of anticoagulants; Z95.2 Presence of prosthetic heart valve; Z90.49 Acquired absence of other specified parts of digestive tract; Z79.4 Long term (current) use of insulin; Z87.891 Personal history of nicotine dependence; E83.39 Other disorders of phosphorus metabolism
CPT/HCPCS: 99223-AI; 99232-AI; 99233-AI; 99239; C1751; J0282; J0610; J0696; J1160; J1650; J1720; J1815; J1940; J2370; J2543; J2704; J3370; J7030; J7040; J7050; J7060; J7120; J7512

== ENCOUNTER 2021-02-12 20:02 | Emergency (ER) | payer MEDICARE ==
[~2021-02-12] VITALS: Ht 185.4 cm; Wt 115.9 kg
[~2021-02-12 20:02] MED LIST changes: +ATARAX 25MG25 MG/TAB PO; +COZAAR100 MG PO; +CUBICIN 500MG500 MG IV; +ELIQUIS 2.5 PO; +FLOMAX 0.40.4 MG/CAP PO; +HYTRIN 2MG CAPSU2 MG PO; +MYRBETR25MG PO; +NORVASC 5MG5 MG/TAB PO; +NOVOLOG FLEX100 U/ML SQ; +ROBAXIN 75750 MG/TAB PO; +SALONPAS1 EACH TP; +TOPROL XL100 MG PO; +TUMS500 MG PO; +VITAMIN D31000 IU PO
[2021-02-12 20:04] VITALS: TEMP 97.6
[2021-02-12 20:54] LABS: BASO % 0.1 % (0.0-2.0); EOS % 0.1 % (0-4.0); GRAN # 9.7 (1.4-6.5); GRAN % 87.7 % (42.2-75.2); MEAN CELL VOLUME 88 fl (80.0-100.0); MEAN CORPUSCULAR HGB CONC 31 g/dl (33.0-37.0); MEAN PLATELET VOLUME 11.4 fl (7.4-10.4); MONO # 0.3 (0.1-0.6); MONO % 2.6 % (1.7-9.3); PLATELET COUNT 206 K/mm3 (130-400); RED BLOOD COUNT 3.35 M/mm3 (4.20-5.60); REDCELL DISTRIBUTION WIDTH-CV 16.1 % (11.5-14.5)
[2021-02-12 20:56] LABS: HEMATOCRIT 29.6 % (42.0-52.0); HEMOGLOBIN 9.2 g/dl (13.5-18.0); MEAN CORPUSCULAR HEMOGLOBIN 27 pg (27.0-31.0)
[2021-02-12 20:58] LABS: INR 1.3 (0.8-3.0); PROTHROMBIN TIME 14.8 SECONDS (9.7-12.8)
[2021-02-12 22:00] VITALS: BP 118/78; PULSE 68
[2021-02-18] MEDS ORDERED: ELIQUIS 2.5 PO (09:19)
[2021-02-22] MEDS ORDERED: XARELTO15 MG PO (08:35)
[2021-03-22] MEDS ORDERED: ZYLOPRIM 300MG300 MG PO (20:45)
[2021-03-22] MEDS ORDERED: NEURONTIN300 MG/CAP PO (20:46)
[2021-03-22] MEDS ORDERED: LIPITOR 80MG80 MG PO (20:48)
[2021-03-22] MEDS ORDERED: MAGNESIUM250 M1 PO (20:48)
[2021-03-22] MEDS ORDERED: VITAMIN D31000 IU PO (20:50)
[2021-03-22] MEDS ORDERED: JUVEN1 PDR PO (20:53)
[2021-03-22] MEDS ORDERED: LOPRESSOR 550 MG/TAB PO (20:54)
[2021-03-22] MEDS ORDERED: VENELEX OINTMEN30 GM TP (20:55)
[2021-03-22] MEDS ORDERED: NOVOLOG 100U100 U/M1 SQ (20:58)
[2021-03-22] MEDS ORDERED: TYLENOL SU650 MG/SUP RC (21:07)
[2021-03-22] MEDS ORDERED: NORCO 325 MG-51 TAB PO (21:08)
== END 2021-02-12 22:00 | disposition home or self-care (01) ==
LOC: COL.ER 20:02
PROVIDERS: Nurse Practitioner Primary Care
DX: S41.112A Laceration without foreign body of left upper arm, initial encounter (principal); S81.812A Laceration without foreign body, left lower leg, initial encounter; R04.0 Epistaxis; I48.91 Unspecified atrial fibrillation; E11.9 Type 2 diabetes mellitus without complications; I10 Essential (primary) hypertension; Z87.891 Personal history of nicotine dependence; Z79.4 Long term (current) use of insulin; Z79.01 Long term (current) use of anticoagulants; Z79.899 Other long term (current) drug therapy; W01.198A Fall on same level from slipping, tripping and stumbling with subsequent striking against other object, initial encounter; Y92.009 Unspecified place in unspecified non-institutional (private) residence as the place of occurrence of the external cause

== ENCOUNTER 2021-02-28 08:30 | Outpatient (RCR) | payer MEDICARE ==
[2021-02-08 09:40] VITALS: BP 149/74; PULSE 49; TEMP 98
[2021-02-10 08:49] VITALS: BP 124/67; PULSE 48; TEMP 97.8
[2021-02-12 09:05] VITALS: BP 125/47; PULSE 50; TEMP 97.1
[2021-02-14 08:50] VITALS: BP 156/77; PULSE 49; TEMP 98
[2021-02-14 09:08] LABS: BASO % 0.3 % (0.0-2.0); EOS # 0.1 (0.0-0.7); EOS % 0.8 % (0-4.0); GRAN # 8.8 (1.4-6.5); GRAN % 81.8 % (42.2-75.2); HEMATOCRIT 28.7 % (42.0-52.0); HEMOGLOBIN 9.1 g/dl (13.5-18.0); LYMPH # 1.2 (1.2-3.4); LYMPH % 10.8 % (20.0-51.0); MEAN CELL VOLUME 88 fl (80.0-100.0); MEAN CORPUSCULAR HEMOGLOBIN 28 pg (27.0-31.0); MEAN CORPUSCULAR HGB CONC 32 g/dl (33.0-37.0); MEAN PLATELET VOLUME 11.8 fl (7.4-10.4); MONO # 0.6 (0.1-0.6); MONO % 5.7 % (1.7-9.3); PLATELET COUNT 212 K/mm3 (130-400); RED BLOOD COUNT 3.25 M/mm3 (4.20-5.60); REDCELL DISTRIBUTION WIDTH-CV 16.1 % (11.5-14.5)
[2021-02-14 09:39] LABS: ALBUMIN 3.3 gm/dL (3.5-5.0); BILIRUBIN,TOTAL 0.4 mg/dL (0.0-1.0); C-REACTIVE PROTEIN 1.1 mg/dL (0.0-0.9); CALCIUM 8.8 mg/dL (8.4-10.2); CREATININE, serum 4.33 (0.66-1.25); POTASSIUM 5.3 mmol/L (3.4-5.0); TOTAL PROTEIN 6.4 gm/dL (6.4-8.2)
[2021-02-16 08:30] VITALS: BP 156/62; PULSE 51; TEMP 98.4
--- NOTE | 2021-02-16 08:40 | NUR ---
PT WHEELED UP TO [facility] FROM ADMITITNG. VSS. LABS DRAWN. ABX GIVEN. PT WHEELED BACK TO ADMITTING.
[2021-02-18 09:38] VITALS: BP 155/71; PULSE 52; TEMP 98.3
[2021-02-20 08:58] VITALS: BP 160/70; PULSE 58; TEMP 98.4
[2021-02-20 09:14] LABS: BASO % 0.4 % (0.0-2.0); EOS # 0.2 (0.0-0.7); EOS % 2.1 % (0-4.0); GRAN % 70.3 % (42.2-75.2); HEMATOCRIT 28.4 % (42.0-52.0); HEMOGLOBIN 8.9 g/dl (13.5-18.0); LYMPH # 1.7 (1.2-3.4); LYMPH % 20.2 % (20.0-51.0); MEAN CELL VOLUME 91 fl (80.0-100.0); MEAN CORPUSCULAR HEMOGLOBIN 28 pg (27.0-31.0); MEAN CORPUSCULAR HGB CONC 31 g/dl (33.0-37.0); MEAN PLATELET VOLUME 11.6 fl (7.4-10.4); MONO # 0.6 (0.1-0.6); MONO % 6.5 % (1.7-9.3); PLATELET COUNT 166 K/mm3 (130-400); RED BLOOD COUNT 3.13 M/mm3 (4.20-5.60); REDCELL DISTRIBUTION WIDTH-CV 16.4 % (11.5-14.5)
[2021-02-20 09:28] LABS: ALANINE AMINOTRANSFERASE 37 U/L (4-49); ALBUMIN 3.4 gm/dL (3.5-5.0); ALKALINE PHOSPHATASE 61 U/L (50-136); ANION GAP 5 mmol/L (7-16); AST,SGOT 30 U/L (15-37); BILIRUBIN,TOTAL 0.5 mg/dL (0.0-1.0); BLOOD UREA NITROGEN 64 mg/dL (9-20); CALCIUM 9.2 mg/dL (8.4-10.2); CARBON DIOXIDE 26 mmol/L (22-30); CHLORIDE 106 mmol/L (98-107); GLUCOSE 120 mg/dL (74-106); SODIUM 137 mmol/L (137-145); TOTAL PROTEIN 6.7 gm/dL (6.4-8.2)
[2021-02-20 09:34] LABS: ERYTHROCYTE SEDIMENTATION RATE 46 mm/hr (0-30)
[2021-02-20 09:46] LABS: C-REACTIVE PROTEIN < 0.5 mg/dL (0.0-0.9)
[2021-02-22 09:01] VITALS: BP 161/71; PULSE 47; TEMP 98
[2021-02-24 09:07] VITALS: PULSE 49
[2021-02-24 09:09] VITALS: BP 159/63; PULSE 49; TEMP 98.2
[2021-02-26 08:47] VITALS: BP 153/63; PULSE 53; TEMP 99.1
[~2021-02-28] VITALS: Ht 188 cm; Wt 117.6 kg
[~2021-02-28 08:30] MED LIST changes: +XARELTO15 MG PO
[2021-02-28 09:01] VITALS: BP 135/64; PULSE 56; TEMP 97.8
[2021-02-28 09:04] LABS: BASO # 0.1 (0.0-0.2); BASO % 0.4 % (0.0-2.0); EOS # 0.3 (0.0-0.7); EOS % 2.6 % (0-4.0); GRAN # 9.9 (1.4-6.5); GRAN % 83.3 % (42.2-75.2); LYMPH # 0.9 (1.2-3.4); LYMPH % 7.9 % (20.0-51.0); MEAN CELL VOLUME 90 fl (80.0-100.0); MEAN CORPUSCULAR HGB CONC 31 g/dl (33.0-37.0); MEAN PLATELET VOLUME 10.7 fl (7.4-10.4); MONO # 0.6 (0.1-0.6); MONO % 5.2 % (1.7-9.3); PLATELET COUNT 145 K/mm3 (130-400); RED BLOOD COUNT 3.33 M/mm3 (4.20-5.60); REDCELL DISTRIBUTION WIDTH-CV 16.3 % (11.5-14.5)
[2021-02-28 09:05] LABS: HEMATOCRIT 30.1 % (42.0-52.0); HEMOGLOBIN 9.4 g/dl (13.5-18.0); MEAN CORPUSCULAR HEMOGLOBIN 28 pg (27.0-31.0)
[2021-02-28 09:18] LABS: ALBUMIN 3.4 gm/dL (3.5-5.0); BILIRUBIN,TOTAL 0.6 mg/dL (0.0-1.0); CALCIUM 9.3 mg/dL (8.4-10.2); CREATININE, serum 3.11 (0.66-1.25); POTASSIUM 4.5 mmol/L (3.4-5.0); TOTAL PROTEIN 6.6 gm/dL (6.4-8.2)
[2021-02-28 09:29] LABS: C-REACTIVE PROTEIN 19.2 mg/dL (0.0-0.9)
[2021-02-28] MEDS ORDERED: HYTRIN 2MG CAPSU2 MG PO (15:14)
[2021-03-22] MEDS ORDERED: ZYLOPRIM 300MG300 MG PO (20:45)
[2021-03-22] MEDS ORDERED: NEURONTIN300 MG/CAP PO (20:46)
[2021-03-22] MEDS ORDERED: MAGNESIUM250 M1 PO (20:48)
[2021-03-22] MEDS ORDERED: LIPITOR 80MG80 MG PO (20:48)
[2021-03-22] MEDS ORDERED: VITAMIN D31000 IU PO (20:50)
[2021-03-22] MEDS ORDERED: JUVEN1 PDR PO (20:53)
[2021-03-22] MEDS ORDERED: LOPRESSOR 550 MG/TAB PO (20:54)
[2021-03-22] MEDS ORDERED: VENELEX OINTMEN30 GM TP (20:55)
[2021-03-22] MEDS ORDERED: NOVOLOG 100U100 U/M1 SQ (20:58)
[2021-03-22] MEDS ORDERED: TYLENOL SU650 MG/SUP RC (21:07)
[2021-03-22] MEDS ORDERED: NORCO 325 MG-51 TAB PO (21:08)
== END 2021-03-15 15:17 | disposition home or self-care (01) ==
LOC: EUO 08:30
PROVIDERS: Internal Medicine Infectious Disease
DX: A41.9 Sepsis, unspecified organism (principal)
CPT/HCPCS: J0878

== ENCOUNTER 2021-02-28 11:34 | Inpatient (IN) | payer MEDICARE ==
[~2021-02-28] VITALS: Ht 188 cm; Wt 127.7 kg
[2021-02-28 12:37] VITALS: BP 145/45; PULSE 56; TEMP 98.1
--- NOTE | 2021-02-28 12:37 | NUR ---
PT IN ROOM IN WHEELCHAIR, HAS TREMOR, VITALS TAKEN, O2 LOW AT 85% RA AND WOULD DROP LOWER WITH EXERTION. PLACED ON 3L NC AND SATTING BETTER. USES A WALKER TO AMBULATE, REFUSES TO GET IN THE BED, REPORTS BEING NPO AND TAKING INSULIN IN AM, BS 116. PT REPORTS HISTORY OF AFIB. COVID SWAB OBTAINED, NOTIFIED GODWIN MÁRQUEZ OF SITUATION
[2021-02-28] MEDS ORDERED: HYTRIN 2MG CAPSU2 MG PO (15:14)
[2021-02-28 16:42] VITALS: BP 160/54; PULSE 47; TEMP 98.9
--- NOTE | 2021-02-28 17:05 | NUR ---
SON UPDATED ON POC, XRAY TAKEN, PT AOX4, DENIES PAIN, ON 3LNC, RVP AND COVID NEGATIVE. PT USES WALKER TO AMBULATE. EDUCATED ON PHONE, FOOD ORDERING, AND CALL LIGHT, ADMISSION COMPLETED, NO OTHER NEEDS
[2021-02-28 19:23] VITALS: BP 158/67; PULSE 73; TEMP 98.7
[2021-02-28 23:42] VITALS: BP 166/42; PULSE 88; TEMP 98.3
--- NOTE | 2021-03-01 04:41 | NUR ---
Monty is moaning all nights. Everytime I asked him if he is OK he said he is. He denied any pain but he was moaning. Another RN found him without Oxygen but his saturation was 93% room air. Rn put the oxygen back and it went up to 95%. He needs urine sample but he is voiding in his briefs. He is incontinent of bladder. Urine sample is not collected yet. I asked him if moaning while sleeping is normal for him he said he dont know. continue to monitor
[2021-03-01 04:42] VITALS: BP 173/50; PULSE 48; TEMP 98.4
[2021-03-01 05:36] VITALS: BP 158/54
[2021-03-01 07:02] LABS: BASO % 0.2 % (0.0-2.0); EOS # 0.2 (0.0-0.7); EOS % 1.9 % (0-4.0); GRAN # 10.9 (1.4-6.5); GRAN % 84.6 % (42.2-75.2); LYMPH # 0.9 (1.2-3.4); LYMPH % 7.3 % (20.0-51.0); MEAN CELL VOLUME 90 fl (80.0-100.0); MEAN CORPUSCULAR HGB CONC 31 g/dl (33.0-37.0); MEAN PLATELET VOLUME 11.3 fl (7.4-10.4); MONO # 0.7 (0.1-0.6); MONO % 5.1 % (1.7-9.3); PLATELET COUNT 159 K/mm3 (130-400); RED BLOOD COUNT 3.32 M/mm3 (4.20-5.60); REDCELL DISTRIBUTION WIDTH-CV 16.5 % (11.5-14.5)
[2021-03-01 07:04] LABS: CALCIUM 9.2 mg/dL (8.4-10.2); CREATININE, serum 3.56 (0.66-1.25); HEMOGLOBIN 9.3 g/dl (13.5-18.0); MEAN CORPUSCULAR HEMOGLOBIN 28 pg (27.0-31.0); POTASSIUM 4.9 mmol/L (3.4-5.0)
[2021-03-01 07:58] VITALS: BP 143/81; PULSE 71; TEMP 99.1
--- NOTE | 2021-03-01 08:15 | NUR ---
Shift assessment complete. Pt sitting up in bed. A&Ox4. Breathing labored and shallow. Heart rhythm irregular, rate tachy in 120s. Tele called stating pt in Afib RVR. EKG confirms this. Hospitalist notified. PICC to right upper arm w/o s/s complication. Continuing to monitor.
[2021-03-01 09:00] VITALS: BP 110/54
--- NOTE | 2021-03-01 09:00 | NUR ---
Tele reports pt back in Afib after spontaneously converting to NSR, rate in 140s at this time. Pt assessed, found to have labored breathing and blood pressures 80s/40s. Hospitalist at bedside. O2 increased from 3 lpm to 5 lpm to maintain sats >90%. 500 ml fluid bolus ordered and started. RT at bedside drawing ABG. Continuing to monitor.
[2021-03-01 09:18] LABS: ARTERIAL BLD GAS O2 SATURATION 95.2 % (92-100); ARTERIAL BLD GAS TCO2 CT 20.2; ARTERIAL BLOOD GAS BASE EXCESS -3.3 (-2-2); ARTERIAL BLOOD GAS HCO3 19.3 meq/L (22-26); ARTERIAL BLOOD GAS PCO2 27.3 mmHg (35-45); ARTERIAL BLOOD GAS PO2 75.2 mmHg (80-100); ARTERIAL BLOOD GAS pH 7.47 (7.35-7.45)
[2021-03-01 09:27] VITALS: BP 83/44; PULSE 96; PULSE 996; TEMP 99.4
[2021-03-01 09:52] LABS: PARTIAL THROMBOPLASTIN TIME 27.5 SECONDS (26.0-37.0)
--- NOTE | 2021-03-01 10:30 | NUR ---
Fluid bolus complete. Blood pressures 120s/70s at this time. Breathing relaxed and unlabored now. Conitinuing to monitor.
--- NOTE | 2021-03-01 11:02 | NUR ---
The patient is to transfer to [facility] today, 03/01. No additional needs at this time.
--- NOTE | 2021-03-01 11:20 | NUR ---
EMS transporting pt to [facility] at this time. Report called to SV RN accepting pt and all questions answered.
[2021-03-22] MEDS ORDERED: ZYLOPRIM 300MG300 MG PO (20:45)
[2021-03-22] MEDS ORDERED: NEURONTIN300 MG/CAP PO (20:46)
[2021-03-22] MEDS ORDERED: LIPITOR 80MG80 MG PO (20:48)
[2021-03-22] MEDS ORDERED: MAGNESIUM250 M1 PO (20:48)
[2021-03-22] MEDS ORDERED: VITAMIN D31000 IU PO (20:50)
[2021-03-22] MEDS ORDERED: JUVEN1 PDR PO (20:53)
[2021-03-22] MEDS ORDERED: LOPRESSOR 550 MG/TAB PO (20:54)
[2021-03-22] MEDS ORDERED: VENELEX OINTMEN30 GM TP (20:55)
[2021-03-22] MEDS ORDERED: NOVOLOG 100U100 U/M1 SQ (20:58)
[2021-03-22] MEDS ORDERED: TYLENOL SU650 MG/SUP RC (21:07)
[2021-03-22] MEDS ORDERED: NORCO 325 MG-51 TAB PO (21:08)
== END 2021-03-01 11:20 | disposition short-term general hospital (02) | DRG 871 ==
LOC: MEDICAL 11:34
PROVIDERS: Physician Assistant; ADMIT Internal Medicine
DX: A41.9 Sepsis, unspecified organism (principal); J96.01 Acute respiratory failure with hypoxia; J18.9 Pneumonia, unspecified organism; I13.0 Hypertensive heart and chronic kidney disease with heart failure and stage 1 through stage 4 chronic kidney disease, or unspecified chronic kidney disease; I50.22 Chronic systolic (congestive) heart failure; N18.30 Chronic kidney disease, stage 3 unspecified; I48.91 Unspecified atrial fibrillation; E11.22 Type 2 diabetes mellitus with diabetic chronic kidney disease; E78.5 Hyperlipidemia, unspecified; R00.1 Bradycardia, unspecified; D63.1 Anemia in chronic kidney disease; F41.9 Anxiety disorder, unspecified; F32.9 Major depressive disorder, single episode, unspecified; N40.0 Benign prostatic hyperplasia without lower urinary tract symptoms; M54.9 Dorsalgia, unspecified; R53.81 Other malaise; M35.3 Polymyalgia rheumatica; Z79.82 Long term (current) use of aspirin; Z95.2 Presence of prosthetic heart valve; Z79.4 Long term (current) use of insulin; Z87.891 Personal history of nicotine dependence; Z20.822 Contact with and (suspected) exposure to COVID-19; Z88.2 Allergy status to sulfonamides
CPT/HCPCS: G0378; J0696; J0878; J1644; J1815; J3370; J7040; J7512

== ENCOUNTER 2021-03-28 14:28 | Inpatient (IN) | payer MEDICARE ==
[~2021-03-28] VITALS: Ht 188 cm; Wt 116.5 kg
[~2021-03-28 14:28] MED LIST changes: +JUVEN1 PDR PO; +LOPRESSOR 550 MG/TAB PO; +NOVOLOG 100U100 U/M1 SQ; +TYLENOL SU650 MG/SUP RC; +VENELEX OINTMEN30 GM TP
[2021-03-29] MEDS ORDERED: DIFLUCAN 100MG100 MG PO (10:14)
[2021-03-29] MEDS ORDERED: BUMEX 1MG TA1 MG/TA1 PO (10:15)
[2021-03-29] MEDS ORDERED: PREDNISONE 2.52.5 MG PO (10:16)
[2021-03-29] MEDS ORDERED: NORCO 325 MG-51 TAB PO (16:37)
[2021-03-29 17:39] VITALS: BP 127/69; PULSE 92; TEMP 98.9
--- NOTE | 2021-03-29 21:02 | NUR ---
Received report from [facility] at 1300. Patient arrived to [facility] room #336 and was transferred via bed to the unit. Patient was dependent with toileting and ambulating. He was able to order his supper meal indpendently and ordered his meals for tomorrow. Admission papers were signed. Patient tolerated meal well this evening. Denies pain, just extreme weakness both upper body and lower body. Patient and assisted with answering all admission questions. Reviewed meds with patient and . Patient currently resting in bed, call light in reach and bed alarm set. Will continue to monitor.
--- NOTE | 2021-03-29 21:30 | NUR ---
Assessment done and completed. Patient is alert and oriented. Denies pain or SOB. He is resting comfortably in bed without any distress. He is on isolation for MRSA. He is incontinent of urine and have an order to bladder scan him once a day. He swallow his pills good all at the same time. He has generalized brusing and discolored skin upper and lower extremeties. He has stage II ulcer in his buttocks as what get from report. Haven't seen it yet for patient refused to be turn to the side for now. Otherwise he is nice and no futher complains. Bed alarm is on and call light is within reach.
[2021-03-30 03:30] VITALS: BP 114/85; PULSE 92; TEMP 97.5
--- NOTE | 2021-03-30 06:44 | NUR ---
Bladder scan done this mornign and have 547 in his bladder. Hospitalist notified Dr Chantal Lema and order one time straight cath and bladder him again after 6 hours.
--- NOTE | 2021-03-30 06:53 | NUR ---
Report received from RUDY Chowdhury. Patient is resting comfortably in bed. Call light and bedside table are within reach. Will continue to monitor patient throughout shift.
--- NOTE | 2021-03-30 07:03 | NUR ---
Straight cath output is 600ml.
--- NOTE | 2021-03-30 15:09 | NUR ---
Welcomed pt to Rehab unit. Explained the rehab process & goals. Complete SW assessment w/ pt. He is alert & oriented & able to communicate his needs & wants. He wears glasses, hearing is intact, & has full upper dentures & partial lower dentures. He lives w/ his . They will be moving to an apartment on 04/15/21, which is on ground floor. The bathroom has a tub/shower combo w/ curtain & grab bar. is unsure about toilet height. Pt reports he walks w/ a r/walker & independent w/ his self care. 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 He has his own r/walker, 4/wheeled walker w/ bilateral platform arms, & transport w/c. He was about to start receiving home health from [facility]. [facility] & reports he has no concerns or issues w/ affording her medications. PCP: Dr. Henao. His is his DPOA & reports they brought in the paperwork yesterday. Pt had no questions/concerns at this time about his rehab stay. SW will continue to provide support & assist w/ d/c planning.
[2021-03-30 16:38] VITALS: BP 109/58; PULSE 79; TEMP 98
[2021-03-30 20:13] VITALS: BP 135/67; PULSE 75; TEMP 98.4
--- NOTE | 2021-03-30 22:14 | NUR ---
Pt has been ok. Pain rated 0/10. Vss. visited. Will continue to monitor.
--- NOTE | 2021-03-31 00:55 | NUR ---
Pt has been incontinent. I bladder scan the pt anyway but there is only 228 Ml in the bladder. Will continue to monitor the pt.
[2021-03-31 05:22] VITALS: BP 119/71; PULSE 83; TEMP 97.5
--- NOTE | 2021-03-31 06:30 | NUR ---
Report received from RUDY Bernstein. Patient is sleeping in bed. Call light and bedside table are within reach. Will continue to monitor patient throughout shift.
[2021-03-31 07:01] LABS: MEAN CELL VOLUME 93 fl (80.0-100.0); MEAN CORPUSCULAR HGB CONC 30 g/dl (33.0-37.0); MEAN PLATELET VOLUME 11.6 fl (7.4-10.4); PLATELET COUNT 180 K/mm3 (130-400); REDCELL DISTRIBUTION WIDTH-CV 18.3 % (11.5-14.5)
[2021-03-31 07:08] LABS: HEMOGLOBIN 8.1 g/dl (13.5-18.0); MEAN CORPUSCULAR HEMOGLOBIN 28 pg (27.0-31.0)
[2021-03-31 07:14] LABS: ALBUMIN 2.6 gm/dL (3.5-5.0); CALCIUM 8.4 mg/dL (8.4-10.2); CREATININE, serum 2.07 (0.66-1.25); PHOSPHOROUS 3.3 mg/dL (2.5-4.5)
[2021-03-31 08:06] LABS: BAND 6 % (0-10); EOSINOPHIL 3 % (0-4); LYMPHOCYTE 32 % (20.0-51.0); METAMYELOCYTE 2 % (0-0); MYELOCYTE 1 % (0-0); NEUTROPHILS 54 % (42.0-75.2); PLATELET ESTIMATE NORMAL (NORMAL)
--- NOTE | 2021-03-31 14:30 | NUR ---
Patient is through with all therapies and is resting in bed. Will continue to monitor throughout shift
[2021-03-31 18:55] VITALS: BP 119/76; PULSE 122; TEMP 98.6
--- NOTE | 2021-03-31 21:07 | NUR ---
Pt has been ok. visited today and concerned about the pt desire to go home and she is unable to take care of him. HR was 126.metoprolol schedule was given. Will continue to monitor.
[2021-04-01 05:10] VITALS: BP 131/78; PULSE 66; TEMP 98.3
[2021-04-01 15:02] VITALS: BP 101/67; PULSE 46; TEMP 98.5
--- NOTE | 2021-04-01 19:14 | NUR ---
Patient attended all therapies this shift. He tolerated diet well only complaining of difficulties with the chicken that was so dry he was afraid he might choke on it. Patient was a max two assist with sit to stand this evening to bed from his wheelchair. He has a stage II on his coccyx and mepilex is in place. Bladder scan was completed this afternoon with no urine detected per BRAID CUTTER/Jessica. Patient denied any urge to urinate or any abdominal discomfort. Patient currently visiting with his and lying in bed at this time, call light in reach and bed alarm set. Reported off to night nurse.
--- NOTE | 2021-04-01 19:44 | NUR ---
PATIENT SITTING IN BED, SPOUSE AT BEDSIDE. ALERT AND ORIENTED X4. NO COMPLAINTS AT THIS TIME. CALL LIGHT IN REACH. WILL COTINUE TO MONITOR.
[2021-04-02 05:46] VITALS: BP 110/63; PULSE 62; TEMP 97.6
--- NOTE | 2021-04-02 13:07 | NUR ---
Patient was incontinent of urine this morning and bedding, clothing and patient were cleaned up and new bedding placed. He has a stage II to his bottom that was cleaned and new aquacel AG was placed over open area and secured with mepilex bandage. Patient tolerated well. Patient's clothing was changed with patient requiring mod assist with removing and putting upper clothing. Was dependent with his pants and brief. Patient tolerating diet well this shift. Did report some pain to his bottom and was given prn pain meds. He has an air mattress on his bed to help with pressure injuries. He is currently eating his lunch at this time. Will continue to monitor.
[2021-04-02 14:55] VITALS: BP 122/60; PULSE 91; TEMP 97.5
[2021-04-02 20:13] VITALS: BP 131/78; PULSE 88; TEMP 98.2
--- NOTE | 2021-04-02 22:21 | NUR ---
Pt has been ok. visited.Pain rated 0/10. Vss. Pt stated he try to work more with pt next week so he can go home.Pt is currently resting. wi1ll continue to monitor.
[2021-04-03 05:32] VITALS: BP 124/61; PULSE 92; TEMP 98.1
--- NOTE | 2021-04-03 06:30 | NUR ---
Report received from RUDY Bernstein. Patient is resting comfortably in bed. Call light and bedside table are within reach. Will continue to monitor patient throughout shift.
[2021-04-03 07:26] LABS: ALBUMIN 2.7 gm/dL (3.5-5.0); CALCIUM 8.4 mg/dL (8.4-10.2); CREATININE, serum 2.07 (0.66-1.25); POTASSIUM 5.3 mmol/L (3.4-5.0)
[2021-04-03 07:52] LABS: PHOSPHOROUS 3.5 mg/dL (2.5-4.5)
--- NOTE | 2021-04-03 14:00 | NUR ---
Admission QIM scores were reviewed by the team. Code of 5 chosen for eating was determined by team discussion to be the most usual performance for this patient during the assessment period. Code of 5 chosen for oral hygiene was determined by team discussion to be the most usual performance before interventions for this patient during the assessment period. Code of 88 chosen for toileting transfers was determined by team discussion to be the most usual performance for this patient during the assessment period. Code of 3 chosen for sit to lying was determined by team discussion to be the most usual performance for this patient during the assessment period. Code of 4 for sit to stand was determined by team discussion to be the most usual performance for this patient during the assessment period.--Marita Blackmon, PD
--- NOTE | 2021-04-03 15:30 | NUR ---
Patient is finished with all therapies today and is resing in bed. Call light and bedside table are within reavch.
[2021-04-03 17:09] VITALS: BP 129/83; PULSE 121; TEMP 97.8
[2021-04-04 05:04] VITALS: BP 122/57; PULSE 67; TEMP 97.5
[2021-04-04 05:14] VITALS: BP 141/98; PULSE 76; TEMP 97.3
--- NOTE | 2021-04-04 11:18 | NUR ---
Patient currently working with group therapy at this time.
--- NOTE | 2021-04-04 14:17 | NUR ---
Patient attended all morning therapies. He is a max 2-3 assist with ambulation using sit to stand lift. Patient did sit in his wheelchair this afternoon and this has been tolerated due to his purchasing a donut for him to sit on. He has a stage II on his bottom and it was too painful to sit on any of the cushions that [facility] provides. He was frustrated about his lunch meal for today, so dietary stopped by to visit with patient and menu for tomorrow was completed by dietition. Will continue to monitor.
[2021-04-04 16:52] VITALS: BP 123/83; PULSE 52; TEMP 98.3
--- NOTE | 2021-04-04 18:28 | NUR ---
Patient was sitting in his wheelchair following therapies for a few hours and this nurse observed that his LLE was weeping moderatly with clear/bloody fluid from his left leg. The right leg was weeping.
[2021-04-04 19:42] VITALS: BP 133/66; PULSE 64; TEMP 98.5
--- NOTE | 2021-04-04 22:20 | NUR ---
PATIENT RESTING IN BED SPOUSE AT BEDSIDE. ALERT ANE ORIENTED. INCONTINENT OF URINE JUANCARLOS CARE PROVIDED. SATYA LE WITH ALAN WRAP DRESSING. LEFT LEG WRIPPING DRESSING CHANGE. LEGS ELEVATED UP ON PILLOWS. VSS. DENIES PAIN. CALL LIGHT WITHIN REACH. WILL CONTINUE TO MONITOR.
[2021-04-05 04:35] VITALS: BP 134/72; PULSE 43; TEMP 97.7
[2021-04-05 08:23] LABS: ALBUMIN 2.9 gm/dL (3.5-5.0); CALCIUM 8.7 mg/dL (8.4-10.2); CREATININE, serum 2.11 (0.66-1.25); PHOSPHOROUS 3.6 mg/dL (2.5-4.5); POTASSIUM 5.1 mmol/L (3.4-5.0)
--- NOTE | 2021-04-05 14:52 | NUR ---
Reveiwed team conference notes w/ pt. Told him the team will re-evaluate next Saturday. He stated his biggest fear is being d/c'd before he can walk. Told him the team is helping him towards this & we talked about also not talking himself out of things. He agreed that somethings are mental. We discussed using mantras to help him overcome his block. Pt had no questions/concerns at this time.
[2021-04-05 17:43] VITALS: BP 113/76; PULSE 129; TEMP 98.1
--- NOTE | 2021-04-05 19:07 | NUR ---
Patient attended all therapies this shift. He was able to use the sit to stand lift with OT and PT successfully during therapy sessions. Later this evening patient was being transferred from his recliner to his bed when he told staff that he was going to fall. He sliped out of the sit to stand lift onto the bed. Staff saw him start to go down and we pushed the sit to stand to the bed just in time for him to sit on the bed. He reported that he was feeling weak. Patient continues to have pain to his bottom and has been given prn pain meds with good effect. This nurse was doing evening vital signs on patient when patient's heart rate was at 129. This was called to Dr. Vaugnh see new orders for an EKG. EKG was reviewed by provider Stephanie. See new orders in EMR. Reported off to night nurse.
[2021-04-05 19:14] VITALS: BP 115/74; PULSE 131; TEMP 98.9
--- NOTE | 2021-04-05 21:46 | NUR ---
PATIENT RESTING IN BED ALERT AND ORIENTED WITH PERIOD OF FORGETFULNESS. PM MEDICATIONS GIVEN. ASSESSMENT DONE, TURN SELF IN BED. CALL LIGHT WITHIN REACH. WILL CONTINUE TO MONITOR.
[2021-04-06 06:00] VITALS: BP 114/71; PULSE 61; TEMP 97.3
--- NOTE | 2021-04-06 06:30 | NUR ---
Report received from RUDY Chambers. Patient is sleeping in bed. Call light and bedside table are within reach. Will continue to monitor throughout shift.
[2021-04-06 07:24] LABS: MEAN CELL VOLUME 95 fl (80.0-100.0); MEAN CORPUSCULAR HGB CONC 29 g/dl (33.0-37.0); MEAN PLATELET VOLUME 11.1 fl (7.4-10.4); PLATELET COUNT 184 K/mm3 (130-400); RED BLOOD COUNT 2.84 M/mm3 (4.20-5.60); REDCELL DISTRIBUTION WIDTH-CV 18.5 % (11.5-14.5)
[2021-04-06 07:25] LABS: HEMATOCRIT 26.9 % (42.0-52.0); HEMOGLOBIN 7.9 g/dl (13.5-18.0); MEAN CORPUSCULAR HEMOGLOBIN 28 pg (27.0-31.0)
[2021-04-06 07:31] LABS: CALCIUM 8.8 mg/dL (8.4-10.2); CREATININE, serum 2.18 (0.66-1.25); POTASSIUM 4.9 mmol/L (3.4-5.0)
[2021-04-06 08:15] LABS: LYMPHOCYTE 25 % (20.0-51.0); NEUTROPHILS 74 % (42.0-75.2); PLATELET ESTIMATE NORMAL (NORMAL)
[2021-04-06 08:16] LABS: ANISOCYTOSIS 1+; OVALOCYTES 1+
[2021-04-06 08:17] LABS: MICROCYTOSIS 1+
--- NOTE | 2021-04-06 14:45 | NUR ---
Patient has completed all therapies and is resing in WC
[2021-04-06 16:00] VITALS: BP 123/92; PULSE 128; TEMP 98.8
[2021-04-06 17:15] VITALS: BP 115/46; PULSE 68; TEMP 97.8
[2021-04-06 18:18] VITALS: BP 104/43; PULSE 129; TEMP 98.5
[2021-04-06 20:17] VITALS: BP 93/60; PULSE 130; TEMP 98.4
[2021-04-07 06:25] VITALS: BP 140/65; PULSE 63; TEMP 98.3
--- NOTE | 2021-04-07 06:30 | NUR ---
Report received from RUDY Chambers. Patient is sleeping in bed. Call light and bedside table are within reach. Will continue to monitor patient throughout shift.
--- NOTE | 2021-04-07 06:43 | NUR ---
PATIENT ALERT AND ORIENTED. SPEND ALL NIGHT IN THE RECLINER. VSS. DENIES PAIN. NO COMPLAINS OVER NIGHT. WILL CONTINUE TO MONITOR.
--- NOTE | 2021-04-07 07:07 | NUR ---
PATIENT HR 130'S AT THE BEGINING OF THE SHIFT. LOPRESSOR GIVEN ORDERED. HR MAINTAINES IN THE 60 THROUGHOUT THE NIGHT. USE CALL LIGHT FOR ASSISTENT. VOID IN THE URINAL. VSS. WILL CONTINUE TO MONITOR.
[2021-04-07 12:55] VITALS: BP 83/58; PULSE 129; TEMP 98.4
--- NOTE | 2021-04-07 12:55 | NUR ---
This nurse spoke with Dr. Vaughn about psyche consult for patient. Dr. Vaughn informed this nurse that psyche would not be available again until 04/17/2021. This nurse will inform patient.
--- NOTE | 2021-04-07 14:00 | NUR ---
PT informed this nurse patient had another skin tear on LLE. This nurse put a bandaid on skin tear.
--- NOTE | 2021-04-07 14:52 | NUR ---
Patient has completed all therapies for the day and is relaxing in WC.
[2021-04-07 17:30] VITALS: BP 106/58; PULSE 69; TEMP 98.2
--- NOTE | 2021-04-07 17:30 | NUR ---
This nurse rewrapped patients leg with kerlix and mariela bands. Prior to removal of old wrap, the wraps were soaked. Patient continues to get skin tears on BLE and BUE. This nurse attempted to use steri-strips but patients skin was seeping. Patient has very fragile skin and will bleed when he bumps his arm or leg on objects.
--- NOTE | 2021-04-07 21:23 | NUR ---
Pt has ok. Pain rated 0/10/. visited today. Will continue to monitor.
[2021-04-08] VITALS (9 sets, daily range): BP systolic 83–119; BP diastolic 47–70; PULSE 57–133; TEMP 97.6–98.3
--- NOTE | 2021-04-08 09:00 | NUR ---
PT RECEIVED RESTING IN BED. NO S/S OF DISTRESS NOTICED. PT AAOX3. V/S STABLE PT. MEDICATIONS ADMINISTERED ORDERED. BG CHECKED ORDERED. PT ATE HIS MEAL. A.M. CARE PROVIDED. PT WHEN TO THERAPY.
--- NOTE | 2021-04-08 10:30 | NUR ---
CALL RECEIVED FROM [employer] THAT PT HEART RATE WENT UP TO THE 130'S AND SUSTAINED. WENT TO THERAPY TO CHECK PT. V/S STABLE BUT PT HEART RATE IS FLUCTUATING FROM 110 TO 140. PT BROUGHT BACK TO HIS ROOM. NO S/S OF DISTRESS NOTICED. PT DENIES ANY CHEST DISCOMFORT. SPOKE TO DR. QUINTANILLA, ORDERS RECEIVED. WILL CONTINUE TO MONITOR PT.
--- NOTE | 2021-04-08 14:40 | NUR ---
CALL PLACED TO DR. QUINTANILLA, PT HEART RATE 126 AND SUSTAINING, BP 83/46. NO ORDER RECEIVED, PER MD CONTINUE TO MONITOR PT. PT DENIES FEELING DIZZY OR CHEST DISCOMFORT. COMFORT MEASURES IN PLACE AND WILL CONTINUE TO MONITOR.
--- NOTE | 2021-04-08 21:24 | NUR ---
Pt has been sitting on the wheelchair when i came in.Pt asked to be transfered back to be. We have tried to pivot him to bed but unable to stand up. We used the sit to stand to transfer the pt, while transfering the pt, he complained about being dizzy,by the time for us to put the pt to bed he has a syncopal episode fo at leat 5 second then we junior to lay him down and the pt woke up and said he is fine. I took a set of vitals after and compare them to the one that i took prior and it was slightly different. i called Stephanie, she ordered troponin. Will continue to monitor.
[2021-04-09] VITALS (8 sets, daily range): BP systolic 91–122; BP diastolic 43–73; PULSE 53–97; TEMP 97.2–98.6
--- NOTE | 2021-04-09 09:24 | NUR ---
Patient continues on telemetry. No IV was placed at the time of tele placement. Patient currently resting in bed, call light in reach and bed alarm set. Will continue to monitor.
--- NOTE | 2021-04-09 13:24 | NUR ---
Patient had a choking episode while he was eating his lunch and he reported that food got stuck in his throat. He did vomit up 100ml emises, but was still unable to drink water without choking. He did report this morning that he was having more of a problem with taking his pills feeling like he couldn't swallow them without taking them with applesauce. Patient was able to swallow all of his pills one at a time with applesauce. Patient's vital signs were taken right after this episode with BP 91/71, P 80 and O2 at 99% RA. Call placed to Dr. Lema and he ordered patient to be NPO at this time and to order a swallow study to be performed tomorrow along with a CXR to check for aspiration following this episode. Patient has a suction at bedside and was educated on how to use this. Patient is a full resuscitation. Will continue to monitor.
--- NOTE | 2021-04-09 13:43 | NUR ---
Patient's Delmis was called and provided her with an update on her . She discussed that her had wanted to talk to someone with Behavioral health, but was told that she was on vacation until after 04/17/21. Delmis mentioned that Servomechanism Assembler Amadou had stopped by the other day to visit and patient got along with him well. [facility]. Patient is holiness, but did enjoy visiting with [facility], even though he is buddhist. This nurse left a message on the chaplains phone regarding this need. Patient's reported that she would not be able to visit today until after 6 pm. Will continue to monitor patient.
--- NOTE | 2021-04-09 18:05 | NUR ---
Patient was able to eat some sugar free pudding, sugar free jello and orange sherbert without any difficulty for supper. He was able to swallow water without a straw this evening. He was able to take his afternoon pills, crushed with applesauce having no difficulty with choking afterwards. He was incontinent of urine this afternoon. Brief changed per nurse. Will continue to monitor. Denies any questions at this time.
--- NOTE | 2021-04-09 21:29 | NUR ---
Pt has ok after being choked. Pain rated 0/10. visited. Pt will be NPO after midnight. Will continue to monitor.
[2021-04-10] VITALS (7 sets, daily range): BP systolic 94–134; BP diastolic 53–88; PULSE 50–74; TEMP 97.4–98.2
--- NOTE | 2021-04-10 06:30 | NUR ---
Report received by RUDY Benrstein. Ashli is sleeping in bed. Call light and bedside table are within reach. WIll continue to monitor patient throughout shift.
[2021-04-10 08:02] LABS: MEAN CELL VOLUME 96 fl (80.0-100.0); MEAN CORPUSCULAR HGB CONC 29 g/dl (33.0-37.0); MEAN PLATELET VOLUME 11.6 fl (7.4-10.4); PLATELET COUNT 148 K/mm3 (130-400); RED BLOOD COUNT 2.83 M/mm3 (4.20-5.60); REDCELL DISTRIBUTION WIDTH-CV 18.6 % (11.5-14.5)
[2021-04-10 08:05] LABS: HEMATOCRIT 27.2 % (42.0-52.0); MEAN CORPUSCULAR HEMOGLOBIN 28 pg (27.0-31.0)
[2021-04-10 08:28] LABS: BAND 3 % (0-10); EOSINOPHIL 1 % (0-4); HYPOCHROMIA 1+; LYMPHOCYTE 15 % (20.0-51.0); NEUTROPHILS 78 % (42.0-75.2); OVALOCYTES 2+; PLATELET ESTIMATE NORMAL (NORMAL); TEAR DROP CELLS 1+
[2021-04-10 08:42] LABS: BILIRUBIN,TOTAL 0.4 mg/dL (0.0-1.0); CALCIUM 8.7 mg/dL (8.4-10.2); CREATININE, serum 2.93 (0.66-1.25); MAGNESIUM 1.7 mg/dL (1.6-2.3); TOTAL PROTEIN 5.6 gm/dL (6.4-8.2)
--- NOTE | 2021-04-10 09:20 | NUR ---
Patient was given pills with applesauce and tolerated it well. No episodes of choking.
--- NOTE | 2021-04-10 09:40 | NUR ---
This nurse was told by outgoing nurse that patient wanted to talk to exhibitions curator but when this nurse inquired, patient denied wanting to talk to exhibitions curator.
--- NOTE | 2021-04-10 13:41 | NUR ---
Visited w/ pt, who seemed down. He told SW that he really needs to see his family. Told him that SW will inquire but could not guarantee. He stated he understood. He did tell SW that he was able to stand today w/ help. Told him that is great & to keep the good work up. He did not have any other questions or concerns.
--- NOTE | 2021-04-10 16:17 | NUR ---
This nurse spoke with [facility] Nothing remarkable for swallow test. Will hold off a couple of days and reengage to check progress.
--- NOTE | 2021-04-10 16:18 | NUR ---
Patient has completed all therapies for the day. Patient is sitting in WC and denies pain at this time. Call light and bedside table are within reach.
[2021-04-11] VITALS: BP 113/55; PULSE 58; TEMP 98.1
[2021-04-11 04:00] VITALS: BP 126/67; PULSE 56; TEMP 98.3
--- NOTE | 2021-04-11 06:53 | NUR ---
Report received from RUDY Bernstein. Patient is sleeping in bed. Call light and bedside table are within reach. Will continue to monitor patient throughout shift.
--- NOTE | 2021-04-11 08:00 | NUR ---
Patient requested to use bed campbell because he was trying to have a BM. Patient was struggling to get BM completely out. This nurse gave him Marilax and PT/OT suggested putting him on bedside commode. Once patient was placed on commode, he was able to finish having a BM. Please encourage patient to use bedside toilet.
[2021-04-11 08:57] VITALS: BP 118/45; PULSE 50; TEMP 98.6
[2021-04-11 12:02] VITALS: BP 101/56; PULSE 46; TEMP 98.6
--- NOTE | 2021-04-11 13:52 | NUR ---
Patient's can take him outside as long as she notifies staff prior to leaving the floor.
--- NOTE | 2021-04-11 15:00 | NUR ---
Unwrapped patient's legs. Remarkable seeping noted more on RLE than LLE. Pitted edema bilat +3. Left unwrapped to relieve itching for patient. Will rewrap before the end of the shift.
--- NOTE | 2021-04-11 17:15 | NUR ---
Redressed patient's legs with gauze and mariela wraps. Patient scratched a skin tear causing it to bleed. This nurse covered it.
--- NOTE | 2021-04-11 19:40 | NUR ---
RECEIVED CHANGE OF SHIFT REPORT FROM DAY SHIFT NURSE. ISOLATION CONTINUES WITH BED ALARM ON WHEN IN BED WITH CALL LIGHT WITHIN REACH.
[2021-04-11 21:48] VITALS: BP 127/41
--- NOTE | 2021-04-12 00:30 | NUR ---
PATIENT SLEEPS, BED ALARM ON, DOES NOT WAKE WHEN ROOM ENTERED BY STAFF. BREATHING NONLABORED AND EVEN. HAS NOT VOIDED AT THIS TIME. CALL LIGHT WITHIN REACH.
[2021-04-12 04:27] VITALS: BP 135/40; PULSE 50; TEMP 97.8
--- NOTE | 2021-04-12 07:16 | NUR ---
CHANGE OF SHIFT REPORT GIVEN TO DAY SHIFT NURSE, KARLOS GRANT.
--- NOTE | 2021-04-12 11:12 | NUR ---
Patient slept in this morning. He ate 95% of his breakfast and drinking 50% of one of his nutrition drinks. This nurse assisted PT this morning with transferring from the bed to the wheelchair. Patient was dependent using the sit to stand. He did stand for PT see PT notes for details. Patient has a small abrasion to his left side of head from the pressure of his eye glasses. This nurse used some cushion tape over the ear piece of the glasses. Patient Stage II to his bottom is activily bleeding and open. Applied aquacel AG to area and secured with mepilex. Patient tolerated well, but did report more pain to his bottom this morning. OT assisted patient with a shower. His bilateral lower legs were redressed with less drainage observed to both legs. He has a skin tear to his right knee and to his lateral lower leg. Both areas were secured with a bandage. Bilateral legs were wrapped with kerlix gauze and secured with mariela bandage. Patient has +3 pitting edema to his bilateral feet. Patient is no longer on fluid restriction. He is no longer on tele. He had no episodes of choking with breakfast. Will continue to monitor.
--- NOTE | 2021-04-12 12:42 | NUR ---
Patient resting in recliner at this time. He was visited by Dr. Vaughn and was provided a brief update on what was going to be discussed at the care plan meeting at 1:00 today. Patient called his following the visit with Dr. Vaughn and was voicing concerns about possibly going to another skilled facility. This nurse spoke with patient and asked that he stay as positive as he can and that staff would provide him with an update on DC plans following the meeting today. He voiced understanding.
--- NOTE | 2021-04-12 13:40 | NUR ---
Patient working with PT/OT at this time.
--- NOTE | 2021-04-12 14:39 | NUR ---
Reviewed team conference notes w/ pt. He stated he understood his current level of functioning. Pt expressed how he is disappointed w/ his progress to this point. He is very concerned about the conversation from Dr. Vaughn. Explained to him that the team is planning on re-evaluating next Saturday to hopefully see increased progress. He inquired what he has to be doing. Told him it's not so much what he needs to be doing but that he is showing signficant progress compared to the small slow progress seen to this point. Also told him that despite not wanting to go back to SNF we have to have a plan B & explained that does not have to be the same SNF he was at prior to hospitalization. We talked about having permission for his sons to be able to come in & visit which made him happy. And that psych has been consulted to come see him Saturday, which he feels is a good thing. Told him that SW would be calling his to set up a Family meeting for maybe Saturday, which he was fine w/. Contacted pt's , Delmis, & reviewed the team conference notes w/ her. She is not surprised w/ current level of functioning. Explained to her that team would like to do a family meeting on 04/14/21 @ 1:00 pm if that works for her. She told SW that she would check & get back w/ me. Also told her that SW has gotten permission for pt's sons to come visit & will work w/ them on getting that arranged. She had a couple of questions which SW answered.
--- NOTE | 2021-04-12 16:10 | NUR ---
Patient currently visiting with Father Nico at [place] [facility] at this time.
[2021-04-12 16:36] VITALS: BP 134/50; PULSE 45; TEMP 97.7
--- NOTE | 2021-04-12 18:48 | NUR ---
RECEIVED CHANGE OF SHIFT REPORT FROM DAY SHIFT NURSE. BED ALARM ON WITH CALL LIGHT WITHIN REACH.
--- NOTE | 2021-04-12 19:59 | NUR ---
REFUSED NEPRO FROM DIETARY. ATE SANDWICH BROUGHT IN FROM HOME WITH SPOUSE. REPORTS "TAIL BONE" PAIN, REQUESTED AND GIVEN PAIN MED, SEE MAR FOR MEDS GIVEN.
[2021-04-12 20:01] VITALS: BP 127/42; PULSE 54
--- NOTE | 2021-04-12 20:04 | NUR ---
AT BEDSIDE. SEE MAR FOR MEDS GIVEN AT THIS TIME.
--- NOTE | 2021-04-13 01:59 | NUR ---
PATIENT SLEEPING, DOES NOT WAKE WHEN ROOM ENTERED BY STAFF ON ROUNDS. BREATHING NONLABORED AND EVEN. BED ALARM ON WITH CALL LIGHT WITHIN REACH. PATIENT CONTINUES TO NEED SIT TO STAND DEVICE WITH X2 STAFF ASSIST FOR TRANSFERS OUT OF BED AND BACK TO BED DUE TO CONTINUES WEAKNESS. DENIED CHEST PAIN/SOA SO FAR THIS SHIFT. CONTINUES TO VOID WITH NO REPORTED PROBLEMS.
[2021-04-13 05:46] VITALS: BP 128/59; PULSE 78; TEMP 97.8
--- NOTE | 2021-04-13 06:54 | NUR ---
CHANGE OF SHIFT REPORT GIVEN TO DAY SHIFT NURSE, KARLOS GRANT.
--- NOTE | 2021-04-13 11:24 | NUR ---
Patient currently at Group Therapy at this time. This nurse assited patient with empyting his urinal this morning. He was incontinent of urine from spilling the urinal. This nurse then assisted patient with changing his brief. Patient was able to move himself up in bed. Patient tolerated diet well this morning. He was dependent with transferring from the bed to the [facility] using the Sit to Stand lift with two person assist. Patient was dependent with dressing lower body, but touch assist with upper body dressing. Patient denied any pain this morning. Will continue to monitor.
[2021-04-13 18:39] VITALS: BP 151/58; PULSE 52; TEMP 98.6
--- NOTE | 2021-04-13 18:53 | NUR ---
RECEIVED CHANGE OF SHIFT REPORT FROM DAY SHIFT NURSE. PATIENT NOT IN ROOM DURING REPORT, PATIENT WITH FAMILY OFF UNIT IN FACILITY [place] AREA.
--- NOTE | 2021-04-13 19:17 | NUR ---
Patient attended all his therapies and showed a lot of improvement today with wheeling himself around in his wheelchair and tolerating the sit to stand lift well. Patient was continent of urine when using the urinal only have incontinence with spill over of urinal. Patient using call light appropriatly. He was so thankful for the opportunity to see his [place] He was very positive all day and returned to his room in a very good mood. He ate all his supper and his stopped by to give him a little bit of a turkey sandwich and grapes. Patient's son visited with him about using [employer] to see the grandkids and he thought that would be a wonderful idea. Patient currently resting in bed, call light in reach and bed alarm set. Reported off to night nurse.
--- NOTE | 2021-04-13 19:36 | NUR ---
HS NEPRO (LIQUID) DIETARY SUPP BROUGHT TO UNIT, PATIENT REFUSED, EXPECTING TO GET SANDWICH BROUGHT IN FROM HOME VIA SPOUSE FOR HS SNACK TONIGHT THAT PATIENT STATES HE WILL ONLY BE ABLE TO EAT "JUST HALF A SANDWICH". BED ALARM ON WHEN IN BED WITH CALL LIGHT WITHIN REACH.
[2021-04-13 21:36] VITALS: BP 127/45
[2021-04-14 03:59] VITALS: BP 129/48; PULSE 65; TEMP 98
[2021-04-14 04:04] VITALS: BP 152/60; PULSE 54; TEMP 97.7
[2021-04-14 07:06] LABS: BASO % 0.6 % (0.0-2.0); EOS % 0.6 % (0-4.0); GRAN # 4.7 (1.4-6.5); GRAN % 67.9 % (42.2-75.2); LYMPH # 1.6 (1.2-3.4); LYMPH % 22.5 % (20.0-51.0); MEAN CELL VOLUME 95 fl (80.0-100.0); MEAN CORPUSCULAR HGB CONC 30 g/dl (33.0-37.0); MEAN PLATELET VOLUME 10.3 fl (7.4-10.4); MONO # 0.5 (0.1-0.6); MONO % 7.2 % (1.7-9.3); PLATELET COUNT 115 K/mm3 (130-400); RED BLOOD COUNT 2.68 M/mm3 (4.20-5.60); REDCELL DISTRIBUTION WIDTH-CV 18.1 % (11.5-14.5)
--- NOTE | 2021-04-14 07:08 | NUR ---
CHANGE OF SHIFT REPORT GIVEN TO DAY SHIFT NURSE, DANIEL GRANT.
[2021-04-14 07:11] LABS: HEMATOCRIT 25.5 % (42.0-52.0); HEMOGLOBIN 7.6 g/dl (13.5-18.0); MEAN CORPUSCULAR HEMOGLOBIN 28 pg (27.0-31.0)
[2021-04-14 07:16] LABS: CALCIUM 8.9 mg/dL (8.4-10.2); CREATININE, serum 2.62 (0.66-1.25); MAGNESIUM 1.6 mg/dL (1.6-2.3); POTASSIUM 4.9 mmol/L (3.4-5.0)
--- NOTE | 2021-04-14 08:33 | NUR ---
Pt assessment complete. Pt is laying in bed upon entry, he is A/O x4. His breathing is even and unlabored on RA. Pt denies SOB. Pain to bottom. Incontinent of urine, pericare and linen change provided. Pt assisted in dressing. Sitting up eating breakfast at this time. No further needs. Call light within reach.
--- NOTE | 2021-04-14 13:15 | NUR ---
Conducted family meeting w/ pt, , son (Lev) & his , & [id number] (Zulma). Also present was the PT, OT, & SW/director of radio services. The team talked about how pt has been doing & barriers/concerns. The family asked questions, which the team answered for them. Explained the plan right now is week to week to see how pt progresses. They did ask about pt not going home & told them they would be looking at SNF but that wouldn t have to be where he was before. They were thankful for the information & encouraged them to reach out to SW for any additional questions/concerns.
[2021-04-14 17:09] VITALS: BP 128/65; PULSE 47; TEMP 98.3
--- NOTE | 2021-04-14 19:00 | NUR ---
PT A&O X4. PLEASANT. SITTING UP IN W/C. 2:1 ASSIST SIT TO STAND TRANSFER TO BED. PT BRIEF DRY AT THIS TIME. PT HX INCONT BLADDER AND BOWEL. DENIES NEED TO VOID. SEE SHIFT ASSESSMENT. PT DENIES ANY COMPLAINTS AT THIS TIME. CALL LIGHT IN REACH. BED ALARM SET.
--- NOTE | 2021-04-15 00:13 | NUR ---
COCCYX MEPILEX CAME OFF AFTER BM. LINEAR OPENING WITH REDNESS TO LT INNER COCCYX.
[2021-04-15 04:38] VITALS: BP 148/42; PULSE 53; TEMP 98.6
--- NOTE | 2021-04-15 05:34 | NUR ---
QUIET UNEVENTFUL HS. RESTED WELL. EKG ORDERED FOR THIS AM.
--- NOTE | 2021-04-15 06:59 | NUR ---
Report received from RUDY Lee. Patient is sleeping in bed. Call light and bedside table are within reach. Will continue to monitor throughout shift.
--- NOTE | 2021-04-15 13:20 | NUR ---
Patient participated in group therapy. All therapy is completed for the day. Patient is in WC. Call light and bedside table are within reach.
[2021-04-15 17:01] VITALS: BP 138/52; PULSE 49; TEMP 98.2
--- NOTE | 2021-04-15 17:15 | NUR ---
FRANKLYN Flores called to say Lev, the patient's son, can visit at 0900. Patient is to be up and dressed. Son is allowed to take patient to the garden.
--- NOTE | 2021-04-15 18:00 | NUR ---
Patient refused to have legs wrapped again. Patient has noted edema BEBA with 2+ pitting with no seeping.
--- NOTE | 2021-04-15 21:14 | NUR ---
PT RESTING IN BED ON AIR MATTRESS. INCONT URINE. SPILLED URINAL. SHEETS CHANGED AT THIS TIME. DENIES PAIN AT THIS TIME. CONTINUED MRSA PRECAUTIONS. CALL LIGHT IN REACH. BED ALARM ON.
[2021-04-16 06:15] VITALS: BP 163/58; PULSE 54; TEMP 98.6
--- NOTE | 2021-04-16 06:38 | NUR ---
PT USED URINAL AND MISSED AND SPILLED. LINENS CHANGED AT THIS TIME. DENIES FURTHER NEEDS.
--- NOTE | 2021-04-16 06:45 | NUR ---
Report received from RUDY Carlos. Patient is sleeping in bed. Call light and bedside table are within reach. Will continue to monitor patient throughout shift.
--- NOTE | 2021-04-16 12:15 | NUR ---
Patient has returned to the floor from visit with mother and son. Patient is currently on bedside toilet. Call light and bedside table are within reach.
--- NOTE | 2021-04-16 17:45 | NUR ---
Patient's stopped by and dropped off a sandwich to
[2021-04-16 18:22] VITALS: BP 112/50; PULSE 50; TEMP 97.7
--- NOTE | 2021-04-16 21:00 | NUR ---
PT RESTING IN BED. WATCHING SPORTS ON IPAD. NO NEEDS AT THIS TIME. CALL LIGHT IN REACH. BED ALARM SET.
[2021-04-17 04:54] VITALS: BP 157/59; PULSE 60; TEMP 98.3
[2021-04-17 07:24] LABS: BASO # 0.1 (0.0-0.2); BASO % 0.9 % (0.0-2.0); EOS # 0.1 (0.0-0.7); EOS % 0.7 % (0-4.0); GRAN # 5.1 (1.4-6.5); LYMPH # 1.7 (1.2-3.4); LYMPH % 23.1 % (20.0-51.0); MEAN CELL VOLUME 95 fl (80.0-100.0); MEAN CORPUSCULAR HGB CONC 30 g/dl (33.0-37.0); MEAN PLATELET VOLUME 11.3 fl (7.4-10.4); MONO # 0.5 (0.1-0.6); MONO % 6.4 % (1.7-9.3); PLATELET COUNT 124 K/mm3 (130-400); RED BLOOD COUNT 2.77 M/mm3 (4.20-5.60); REDCELL DISTRIBUTION WIDTH-CV 17.9 % (11.5-14.5)
[2021-04-17 07:26] LABS: HEMATOCRIT 26.2 % (42.0-52.0); HEMOGLOBIN 7.9 g/dl (13.5-18.0); MEAN CORPUSCULAR HEMOGLOBIN 29 pg (27.0-31.0)
[2021-04-17 07:33] LABS: CALCIUM 8.8 mg/dL (8.4-10.2); CREATININE, serum 2.38 (0.66-1.25); MAGNESIUM 1.7 mg/dL (1.6-2.3); POTASSIUM 4.5 mmol/L (3.4-5.0)
--- NOTE | 2021-04-17 08:00 | NUR ---
Patient laying in bed, finished eatting breakfast. Needs assistance with changing brief and wants to get dressed and sit in the wheelchair. Nursing staff x2 assisted patient with sit to stand to the wheelchair. Patient tolerated well. Dressing applied to sacral area and new brief placed. Denies pain and discomfort. A&Ox3. VSS. No further needs expressed. Contact precautions in place. Call light within reach
--- NOTE | 2021-04-17 10:00 | NUR ---
OT/PT notfied the nurse that the patients right heel was bleeding. Nurse places a pink dressing on heel and heel protector. No further needs expressed. Patient taken back down stairs for therapy
--- NOTE | 2021-04-17 10:36 | NUR ---
Visited w/ pt. He stated he had a good weekend & great visit w/ his son, Lev. He stated that he was able to stand 3/5 times this morning. He seems to be in better spirits & continues to try. Reminded him that psych should be here sometime today to visit w/ him. Will continue to follow & assist w/ d/c planning.
[2021-04-17 16:16] VITALS: BP 119/50; PULSE 47; TEMP 98.8
--- NOTE | 2021-04-17 17:44 | NUR ---
Patient assisted back to bed with the sit to stand and 2x nursing staff. A&Ox3. VSS. Denies pain and discomfort. Patient incontinent of urine, brief changed and repositioned in bed. Patient worked with therapy and tolerated well. No further needs expressed. Call light within reach
[2021-04-17 20:22] VITALS: BP 146/48
--- NOTE | 2021-04-17 23:30 | NUR ---
PATIENT CONTINUES TO REQUIRE [id number] TRANSFER DEVICE WITH X2 STAFF ASST WITH OUT OF BED ACTIVITIES, WEAKNESS CONTINUES TO BLE REQUIRING ASSISTANCE. DENIES CHEST PAIN/SOA. DENIES ANY DISCOMFORT AT THIS TIME. BED ALARM ON WHEN IN BED, WITH CALL LIGHT WITHIN REACH.
[2021-04-18 06:19] VITALS: BP 162/56; PULSE 59; TEMP 98.7
[2021-04-18 08:09] VITALS: BP 145/50; PULSE 58
--- NOTE | 2021-04-18 09:53 | NUR ---
Patient uses his urinal, but spilled onto his bed. Staff changed his bedding. Patient reported a headache this morning and he was given prn Tylenol with good effect. He is currently working with therapy at this time. He had a Stage I to his right heel that has now opened up and is a Stage II. This nurse observed some whitish drainage to the area. Area was cleaned and applied aquacel AG to open wound and secured with a mepilex. Patient tolerated well. Will continue to monitor.
--- NOTE | 2021-04-18 10:03 | NUR ---
Received call from pt's , Delmis, requesting to meet w/ SW about resources available. Scheduled for , 04/20/21 @ 1:30 pm.
--- NOTE | 2021-04-18 15:14 | NUR ---
Patient resting in wheelchair, call light in reach and alarm is set. Denies questions at this time.
[2021-04-18 16:56] VITALS: BP 138/54; PULSE 51; TEMP 98.2
--- NOTE | 2021-04-18 18:46 | NUR ---
RECEIVED CHANGE OF SHIFT REPORT FROM DAY SHIFT NURSE. PATIENT UP IN CHAIR DURING REPORT WITH EXIT ALARM ON AND CALL LIGHT WITHIN REACH.
[2021-04-18 21:37] VITALS: BP 149/49
--- NOTE | 2021-04-19 03:12 | NUR ---
PATIENT SLEEPS, DOES NOT WAKE WHEN STAFF ENTER ROOM ON ROUNDS. BREATHING NONLABORED AND EVEN. BED ALARM ON WITH CALL LIGHT WITHIN REACH.
--- NOTE | 2021-04-19 06:21 | NUR ---
PATIENT REPORTS HAD SAT UP IN W/C FOR MORE THAN AN HOUR PRIOR TO SUPPER, TRANSFER WITH ASSIST OF SIT TO STAND DEVICE OPERATED BY X2 STAFF PERSONNEL. OBSERVED PATIENT REQUIRES MOD ASSIST WITH TURNING FROM SIDE TO SIDE WHEN IN BED. OBSERVED PATIENT ABLE TO MOVE BOTH LEGS BUT STILL HAS OBSERVABLE WEAKNESS WITH MOVEMENTS OF BLE.
[2021-04-19 06:32] VITALS: BP 140/74; PULSE 84; TEMP 98.2
--- NOTE | 2021-04-19 07:25 | NUR ---
CHANGE OF SHIFT REPORT GIVEN TO DAY SHIFT NURSE, KARLOS GRANT.
--- NOTE | 2021-04-19 10:27 | NUR ---
Patient resting in wheelchair at this time, call light in reach and watching TV. He denies any questions. He is independent with brushing teeth and set up for grooming.
--- NOTE | 2021-04-19 14:00 | NUR ---
Reveiwed team conference notes w/ pt. He stated he understood & agreed w/ current level of function. Informed him that his stay has been extended another week & will re-evaluate next 04/26/21. He seemed pleased w/ this & stated he would be doing more by then. He did not have any questions/concerns at this time. Inquired about calling his & he asked SW to wait til tomorrow because she wasn't feeling well today.
--- NOTE | 2021-04-19 15:38 | NUR ---
Patient attended all therapies this shift. He received a skin tear to his left elbow when transferring with the sit to stand to the shower via assistance of RN and OT. Area was cleaned, steri strips applied then secured with a bandage. Patient denied any pain. His skin is very fragile. Patient will be staying another week and will be reevaluated next Saturday. His stage II wound was cleaned and new aquacel AG and bandage applied to area. His stage II wound to his coccyx continues to improve, but is still open. The area was cleaned, a new aquacel AG and bandage applied to area.
[2021-04-19 16:45] VITALS: BP 127/50; PULSE 50; TEMP 98.5
--- NOTE | 2021-04-19 18:51 | NUR ---
RECEIVED CHANGE OF SHIFT REPORT FROM DAY SHIFT NURSE. PATIENT IN BED WITH EXIT ALARM ON AND CALL LIGHT WITHIN REACH.
[2021-04-19 21:14] VITALS: BP 151/57
[2021-04-20 05:31] VITALS: BP 155/61; PULSE 57; TEMP 98.5
--- NOTE | 2021-04-20 06:30 | NUR ---
Report received from RUDY Pipre. Patient is sleeping in bed. Call light and bedside table are within reach. Will continue to monitor throughout shift.
--- NOTE | 2021-04-20 07:10 | NUR ---
CHANGE OF SHIFT REPORT GIVEN TO DAY SHIFT NURSE, SHAISTA GRANT.
--- NOTE | 2021-04-20 08:20 | NUR ---
TYREL Carreno, came and got this nurse and stated patient was c/o dizziness. When this nurse got into the room the patient was sitting on the toilet with his head down. This nurse monitored the patient and dizziness quickly resolved but because patient felt dizzy, we put patient in bed to let him rest. Patient stated he felt better after lying down. Will continue to monitor patient. Call light and bedside table are within reach.
--- NOTE | 2021-04-20 12:45 | NUR ---
Was informed by staff that pt has been stating that he needs to get going since he had an off morning. Visited w/ pt, who doesn't seem to be as positive has he had been. Inquired how the visit was w/ the pychologist went & didn't have much to say. Did talk to him about the medication changes, which he acknowledged. I also brought up his comment about needing to kick it in gear. Tried to explain to him that all he can do right now is just try his best each day & not work about wasting time. Explained to him that sometimes our bodies try to tell us things that we need to listen to, like this morning when he got dizzy & the staff laid him down. He acknowledge that he felt better once he rested but still concerned that if he isn't always going down to the gym, he's going to lose out. Again told him that all he needs to do right now is focus on the day he has & do his best.
--- NOTE | 2021-04-20 14:00 | NUR ---
Patient has completed all therapies for the day. Patient is sitting in wheelchair watching phone. Call light and bedside table are within reach.
--- NOTE | 2021-04-20 14:30 | NUR ---
Met w/ pt's , Delmis, & had pt's son, Lev, & [id number], Zulma, via speaker phone. Started by explaining correction coverage under Medicare. The proceeded to explain about home health & private duty caregivers. They all asked SW questions which SW answered. We continued to come back to the point of pt being motivated & asked them all to help him try to stay in the day & not what he needs to accomplish in the week. Also encouraged them to start deciding on their preferences for correction, so they are prepared for the time when the team states we have done all we can do.
[2021-04-20 17:45] VITALS: BP 137/53; PULSE 48; TEMP 97.2
--- NOTE | 2021-04-20 21:16 | NUR ---
Assessment completed, alert and oriented. Patient is comfortably sitting in wheelchair. No complains noted, he is watching TV. Took his pills whole one at a time. Get back to bed at 2100 with machine set up technician helped. No further complain. Bed alarm sets and bedside and call light within reach.Will continue to follow.
[2021-04-21 03:32] VITALS: BP 143/62; PULSE 57; TEMP 98.2
--- NOTE | 2021-04-21 05:14 | NUR ---
Patient get up to the bedside to use the urinal 2x last night. He was asleep most of the night. No complains noted.
--- NOTE | 2021-04-21 06:47 | NUR ---
Report received from RUDY Chowdhury. Patient is sleeping in bed. Call light and bedside table are within reach. Will continue to monitor patient throughout shift.
--- NOTE | 2021-04-21 14:45 | NUR ---
Patient has completed all therapies for the day. Patient is in WC. Patient denies pain at this time and is A & x 4. Call light and bedside table are within reach.
[2021-04-21 17:05] VITALS: BP 144/42; PULSE 95; TEMP 98.5
--- NOTE | 2021-04-21 20:30 | NUR ---
Assessment completed, alert and oriented, comfortably sitting in wheel chair watching TV. He asked for some crackers. His bllod sugar was 178 where he got 4u of short acting and he hsa long acting scheduled. Otherwise he denies pain and said that he wants to get back in bed at 2145. He swallowed his pills whole one at a time with no issues. bedside table is in his front and call light is within reach. Will continue to follow for the nights.
[2021-04-22 03:25] VITALS: BP 144/56; PULSE 78; TEMP 98.5
--- NOTE | 2021-04-22 05:02 | NUR ---
Patient had 2x accident last night. He was soaked and he missed the urinals. His bed need to get change and his clothes too. He didnt get enough sleep last night. Bed alarm is on, bedside table and call light is within reach.
[2021-04-22 16:29] VITALS: BP 104/40; PULSE 51; TEMP 97.4
--- NOTE | 2021-04-22 19:07 | NUR ---
Patient was dependent with transfer using sit to stand this morning to go to group therapy. Patient was a set up for upper body dressing and dependent for lower body dressing. Patient returned from therapy early needing to be transferred to the toilet. Patient had a BM. When standing patient with the sit to stand lift and after wiping him patient reported some shoulder pain and wanted to be sit down right away. Once he was sat down he passed out and started shaking. The shaking lasted for approx. 45 seconds and patient was not responive at the time. He regained responsivness and did not remember what had happened. Vitals were taken with BP being 91/40, HR 51, O2 97% on RA. Dr. Chavarria was contacted see new orders to start IV and give 250 ml bolus of LR along with 500 IV Keppra. Patient was then transferred from the commode to the bed and vitals were retaken at BP 96/50, HR 45, O2 95% on RA. See new orders in EMR per Dr. Chavarria. IV was placed to patient's LFA and was a 22 gauge. Patient rested in bed and visited with the hardwood floor layer and his . Dr. Chavarria ordered a Neuro consult and this nurse contacted Dr. Cervantes. Dr. Cervantes assessed patient, see new orders to start Sinemet tomorrow and start Keppra PO BID tonight. See EMR for more tests on Saturday. Patient currently resting in bed, awaiting supper. His call light in reach and denies any pain. Reported off to night nurse.
--- NOTE | 2021-04-22 20:47 | NUR ---
Patient is comfortably laying in bed watching TV.Patient seems tired, denies pain. He had an accident that makes him wet and had changed his brief. He said that he wants his tray at 1930. came in at the bedside and left at 2029. He has new meds for seizure and explained the use of it. He swallow his pills good one at a time with no issues. Bedside table, calllight is within reach and bed alarm is on. Will continue to monitor for the nights.
[2021-04-23 03:58] VITALS: BP 152/57; PULSE 49; TEMP 98.8
--- NOTE | 2021-04-23 05:58 | NUR ---
Patient slept all night. He used the call light if he needs to use the urinal. RN didn't had to change his brief or underpads. He peed 3x. No further concern. Bedside table and call light is within reach and bed alarm is on.
--- NOTE | 2021-04-23 15:38 | NUR ---
Patient was a sit to stand lift this morning from his bed to his wheelchair at 9:30 AM. He had a continent BM using the [facility] before going to see his son, Prem. He was dependent with all toileting tasks. He had no episodes of fainting or seizures this shift. He continues on Keppra and was started on Sinemet this morning tolerating both well. Patient visited with his son Prem for a couple of hours this morning and then returned to his room to take a short nap prior to eating his lunch. Patient currently resting in wheelchair, call light in reach. Patient did have concerns about the MRI that was ordered by Dr. Cervantes yesterday to be done on SaturdayApril 24. Patient was made aware that the MRI would be sometime tomorrow, but that there was no definit time for the scan. He voiced understanding. He will also be receiving an EEG tomorrow as well.
--- NOTE | 2021-04-23 15:55 | NUR ---
Patient complaining that room is too cold. This nurse called and spoke with maintenance to adjust the temp. No adjustment of temperature seen at this time.
[2021-04-23 17:31] VITALS: BP 143/58; PULSE 46; TEMP 98.5
--- NOTE | 2021-04-23 18:51 | NUR ---
RECEIVED CHANGE OF SHIFT REPORT FROM DAY SHIFT NURSE. BED ALARM ON WHEN IN BED WITH CALL LIGHT WITHIN REACH.
--- NOTE | 2021-04-23 23:27 | NUR ---
PATIENT WITH CONTINUES WEAKNESS TO BLE, REQUIRING USE OF SIT TO STAND DEVICE (WITH STAFF ASST X2) FOR OUT OF BED TRANSFERS TO AND FROM CHAIR TO BED. DENIES CHEST PAIN/SOA AND DENIES NUMBNESS/TINGLING TO EXTREMITIES AT THIS TIME. BED ALARM ON WHEN IN BED WITH CALL LIGHT WITHIN REACH.
--- NOTE | 2021-04-24 00:17 | NUR ---
REPORTS HAD BEEN WATCHING VIDEOS ON iPAD, HAD VOIDED WITH USING URINAL "IT WAS TOO LATE". COCCYX AREA PINK WITH NO OPEN AREA, NO DRSG ON, ABLE TO LIFT BUTTOCKS ON COMMAND SLIGHTLY TO PULL UP ADULT DISPOSABLE PANT PARTWAYS. DENIES ANY NEEDS, BED ALARM ON, CALL LIGHT WITHIN REACH.
[2021-04-24 05:31] VITALS: BP 160/58; PULSE 56; TEMP 98.2
--- NOTE | 2021-04-24 06:30 | NUR ---
Report received from Veronique GRANT. Patient is in bed sleep. This nurse was informed by RUDY Piper. Patient is NPO d/t procedure for EEG at 1100. Bedside table and call light are within reach. Will continue to monitor patient throughout shift.
[2021-04-24 06:50] LABS: BASO # 0.1 (0.0-0.2); BASO % 0.6 % (0.0-2.0); EOS # 0.3 (0.0-0.7); EOS % 3.5 % (0-4.0); GRAN # 5.6 (1.4-6.5); GRAN % 69.6 % (42.2-75.2); LYMPH # 1.6 (1.2-3.4); LYMPH % 19.8 % (20.0-51.0); MEAN CELL VOLUME 95 fl (80.0-100.0); MEAN CORPUSCULAR HGB CONC 31 g/dl (33.0-37.0); MEAN PLATELET VOLUME 11.5 fl (7.4-10.4); MONO # 0.5 (0.1-0.6); MONO % 5.8 % (1.7-9.3); PLATELET COUNT 140 K/mm3 (130-400); RED BLOOD COUNT 2.69 M/mm3 (4.20-5.60); REDCELL DISTRIBUTION WIDTH-CV 17.9 % (11.5-14.5)
[2021-04-24 06:53] LABS: HEMATOCRIT 25.6 % (42.0-52.0); HEMOGLOBIN 7.8 g/dl (13.5-18.0); MEAN CORPUSCULAR HEMOGLOBIN 29 pg (27.0-31.0)
--- NOTE | 2021-04-24 07:08 | NUR ---
CHANGE OF SHIFT REPORT GIVEN TO DAY SHIFT NURSE, SHAISTA GRANT.
[2021-04-24 07:20] LABS: CALCIUM 9.2 mg/dL (8.4-10.2); CREATININE, serum 2.04 (0.66-1.25); MAGNESIUM 1.6 mg/dL (1.6-2.3); POTASSIUM 4.1 mmol/L (3.4-5.0)
--- NOTE | 2021-04-24 09:10 | NUR ---
Patient went down to do a MRI.
--- NOTE | 2021-04-24 12:00 | NUR ---
Due to patient having EEG procudure, lunch had to be pushed back. Will administer insulin before patient eats.
--- NOTE | 2021-04-24 13:21 | NUR ---
Patient is in EEG procedure. Tech is setting up and said procedure will take about 1 1/2 hours.
--- NOTE | 2021-04-24 19:15 | NUR ---
RECEIVED CHANGE OF SHIFT REPORT FROM DAY SHIFT NURSE. UP IN CHAIR WITH EXIT ALARM ON AND CALL LIGHT WITHIN REACH.
--- NOTE | 2021-04-25 03:24 | NUR ---
PATIENT SLEEPS, DOES NOT WAKE WHEN STAFF ENTER ROOM ON ROUNDING. OBSERVED BREATHING NONLABORED AND EVEN. BED ALARM ON WITH CALL LIGHT WITHIN REACH. STILL REQUIRES USE OF [id number] WITH TRANSFER TO AND FROM BED. TOLERATING ACTIVITY SO FAR THIS SHIFT.
[2021-04-25 05:24] VITALS: BP 178/73; PULSE 57; TEMP 98.4
--- NOTE | 2021-04-25 06:30 | NUR ---
Report received from RUDY Piper. Patient is sleeping in bed. Call light and bedside table are withing reach. Will continue to monitor patient throughout shift.
--- NOTE | 2021-04-25 06:58 | NUR ---
CHANGE OF SHIFT REPORT GIVEN TO DAY SHIFT NURSE, SHAISTA GRANT.
--- NOTE | 2021-04-25 14:25 | NUR ---
Patient has completed all therapies for the day. Patient is in WC. Patient denies pain at this time. Call light and bedside table are within reach.
[2021-04-25 17:38] VITALS: BP 132/73; PULSE 76; TEMP 97.5
--- NOTE | 2021-04-25 19:39 | NUR ---
RECEIVED CHANGE OF SHIFT REPORT FROM DAY SHIFT NURSE.
--- NOTE | 2021-04-26 02:06 | NUR ---
PATIENT SLEEPS, DOES NOT WAKE WHEN STAFF ENTER ROOM ON ROUNDS. BREATHING EVEN AND NONLABORED. BED ALARM ON WITH CALL LIGHT WITHIN REACH.
[2021-04-26 06:06] VITALS: BP 158/57; PULSE 71; TEMP 97.3
--- NOTE | 2021-04-26 07:22 | NUR ---
CHANGE OF SHIFT REPORT GIVEN TO DAY SHIFT NURSEARLINE RN.
[2021-04-26 08:00] VITALS: BP 145/70; PULSE 73; TEMP 98.4
--- NOTE | 2021-04-26 15:42 | NUR ---
Reviewed team conference notes w/ pt & . They stated they understood & agreed w/ the current level of functioning. Informed that the team will re-evaluate again next Saturday, which they were fine w/. Talked to them about doing another family meeting, which they were fine w/ & have tentatively set up for , 05/04/21 @ 1:30 pm.
--- NOTE | 2021-04-26 23:30 | NUR ---
ALERT OX4. DENIES PAIN, SOA OR DIZZY. SLIDEBOARD USED TO GET PT BACK TO BED SETTING UP IN CHAIR . PM MEDS GIVEN. POC DISCUSSED. CALL LIGHT WI REACH. NEEDS MET.
[2021-04-27 04:28] VITALS: BP 156/66; PULSE 61; TEMP 98.4
--- NOTE | 2021-04-27 05:38 | NUR ---
RESTED THROUGH THE NIGHT WITHOUT INCIDNET. NEEDS MET.
--- NOTE | 2021-04-27 06:30 | NUR ---
Recieved report from RUDY Cooney. Patient is sleeping in bed. Call light and bedside table are within reach. Will continue to monitor patient throughout shift.
--- NOTE | 2021-04-27 14:00 | NUR ---
Patient has completed all therapies for the day. Patient is sitting in WC watching TV. Call light and bedside table are within reach.
[2021-04-27 17:17] VITALS: BP 125/55; PULSE 52; TEMP 97.2
--- NOTE | 2021-04-27 21:00 | NUR ---
PT SITTING UP IN WC. CONTINUED ISOLATION FOR MRSA. ASSISTED PT TRANSFER TO BED PER SLIDE BOARD. PT DEBORAH WELL. NEEDED ASSIST WITH WC ARM AND PLACEMENT OF SLIDE BOARD. STAFF CGA ONLY WITH TRANSFER. PT USING URINAL LEAKED ON CLOTHING. ASSISTED WITH CHANGE AT THIS TIME. CALL LIGHT IN REACH. BED ALARM SET.
[2021-04-28 05:57] VITALS: BP 148/60; PULSE 74; TEMP 98.4
--- NOTE | 2021-04-28 06:21 | NUR ---
PT SPILLED URINAL IN BED. CHANGED CLOTHING, BRIEF AND CHUX.
--- NOTE | 2021-04-28 06:52 | NUR ---
Report received from RUDY Carlos. Patient is sleeping in bed. Call light and bedside table are within reach. WIll continue to monitor patient throughout shift.
--- NOTE | 2021-04-28 14:09 | NUR ---
Patient has completed all therapies for the day and is relaxing in WC. Patient denies pain at this time. Call light and bedside table are within reach.
[2021-04-28 18:00] VITALS: BP 137/108; PULSE 117; TEMP 97
[2021-04-28 19:00] VITALS: BP 118/49
--- NOTE | 2021-04-28 19:00 | NUR ---
BP ELEVATED BUT RECHECKED AT6 SHIFT CHANGE. BP 118/49
--- NOTE | 2021-04-28 19:23 | NUR ---
PT SITTING UP IN W/C WATCHING FOOTBALL. NO NEEDS AT THIS TIME.
--- NOTE | 2021-04-28 22:07 | NUR ---
PT STILL IN WC WATCHING FOOTBALL GAME. NO NEEDS AT THIS TIME. CALL LIGHT IN REACH.
[2021-04-29 06:09] VITALS: BP 123/54; PULSE 103; TEMP 98.3
--- NOTE | 2021-04-29 06:37 | NUR ---
O2 SAT 78% ON 7L. NOTIFIED RT FOR SVN TX. O2 UP TO 8L - SAT UP 87-88% SHIFT REPORT GIVEN TO SHAISTA PAN RN.
--- NOTE | 2021-04-29 06:43 | NUR ---
Report received from RUDY Carlos. Patient is sleeping in bed. Call light and bedside table are within reach. Will continue to monitor patient throughout shift.
[2021-04-29 18:00] VITALS: BP 142/46; PULSE 46; TEMP 98.5
--- NOTE | 2021-04-29 21:01 | NUR ---
PT RESTING IN BED. WATCHING FOOTBALL. NO NEEDS AT THIS TIME.
[2021-04-30 04:02] VITALS: BP 165/74; PULSE 81; TEMP 97.4
--- NOTE | 2021-04-30 06:56 | NUR ---
Report received from RUDY Carlos. Patient is sleeping in bed. Call light and bedside table are within reach. Will continue to monitor patient throughout shift.
--- NOTE | 2021-04-30 09:44 | NUR ---
Patient's son is visiting with him in the garden
--- NOTE | 2021-04-30 12:00 | NUR ---
Patient's son returned his father to his room. Patient denies pain at this time. Call light and bedside table are within reach. Will continue to monitor patient throughout shift.
[2021-04-30 18:15] VITALS: BP 135/57; PULSE 78; TEMP 98.2
--- NOTE | 2021-04-30 20:56 | NUR ---
ASSISTED PT TO BED FROM W/C WITH SLIDE BOARD. NEEDED ASSIST LIFTING LEGS INTO BED. PT ABLE TO REPOSITION SELF TO TOP OF BED AND FOR COMFORT. DENIES NEEDS. CALL LIGHT IN REACH. BED ALARM SET.
[2021-05-01 04:00] VITALS: BP 113/58; BP 155/52; PULSE 115; PULSE 80; TEMP 97.4; TEMP 98.2
--- NOTE | 2021-05-01 06:39 | NUR ---
Report received from RUDY Carlos. Patient is sleeping in bed. Call light and bedside table are within reach. Will continue to monitor throughout shift.
[2021-05-01 07:45] LABS: BASO % 0.3 % (0.0-2.0); EOS # 0.2 (0.0-0.7); EOS % 2.6 % (0-4.0); GRAN # 4.7 (1.4-6.5); LYMPH # 1.4 (1.2-3.4); LYMPH % 20.3 % (20.0-51.0); MEAN CELL VOLUME 97 fl (80.0-100.0); MEAN CORPUSCULAR HGB CONC 30 g/dl (33.0-37.0); MEAN PLATELET VOLUME 11.5 fl (7.4-10.4); MONO # 0.4 (0.1-0.6); MONO % 6.5 % (1.7-9.3); PLATELET COUNT 157 K/mm3 (130-400); RED BLOOD COUNT 2.79 M/mm3 (4.20-5.60); REDCELL DISTRIBUTION WIDTH-CV 17.7 % (11.5-14.5)
[2021-05-01 08:03] LABS: CALCIUM 9.1 mg/dL (8.4-10.2); CREATININE, serum 2.37 (0.66-1.25); MAGNESIUM 1.5 mg/dL (1.6-2.3); POTASSIUM 4.2 mmol/L (3.4-5.0)
[2021-05-01 08:05] LABS: HEMOGLOBIN 8.1 g/dl (13.5-18.0); MEAN CORPUSCULAR HEMOGLOBIN 29 pg (27.0-31.0)
--- NOTE | 2021-05-01 11:45 | NUR ---
Patient has completed all therapies for the day. Patient is in WC and denies pain at this time. Call light and bedside table are within reach.
[2021-05-01 17:14] VITALS: BP 150/70; PULSE 70; TEMP 98.1
--- NOTE | 2021-05-01 18:21 | NUR ---
Patient refused to have skin tears covered up d/t the fact he has not been picking at them because he is all covered up.
--- NOTE | 2021-05-01 20:00 | NUR ---
PATIENT IS ALERT AND ORIENTED X4. JUST LEAVING BEDSIDE. PATIENT UP SITTING IN CHAIR AND MOVED TO BED USING SLIDE BOARD. PATIENT HAS SKIN TEARS ON ARMS AND PRESSURE ULCER TO COCCYX AND RIGHT HIP BUT REFUSED DRESSINGS. PATIENT IS ON MRSA PRECAUTIONS AND ADA DIET. PATIENT DENIES PAIN OR FURTHER NEEDS AT THIS TIME. CALL LIGHT WITHIN REACH. HEAD TO TOE ASSESSMENT COMPLETE,
--- NOTE | 2021-05-02 05:50 | NUR ---
PATIENT DID WELL THROUGHOUT NIGHT. GOT INTO BED WITH SLIDING BOARD. SLEPT MOST OF THE NIGHT. HAD A BOWEL MOVEMENT LAST NIGHT.PATIENT STILL SLEEPING, NO FURTHER NEEDS AT THIS TIME. WILL REPORT TO DAY SHIFT
[2021-05-02 06:03] VITALS: BP 165/70; PULSE 78; TEMP 98.8
--- NOTE | 2021-05-02 14:06 | NUR ---
Visited w/ pt. He stated he is doing good & that he just stood in the walker today. Provided praise & encouragement. Pt did stay he had a great visit w/ his son again on Saturday. He also wants to continue to stay if possible.
[2021-05-02 18:16] VITALS: BP 162/76; BP 172/69; PULSE 86; TEMP 98.3
--- NOTE | 2021-05-02 18:30 | NUR ---
Patient has been doing well today. He sat up in the chair most the day. Denies nausea and pain. He picked open and old scab to his right knee, wound cleaned up and foam dressing placed over. It was bleeding down his leg. An old skin tear also got bumped open and he started draining blood down his left arm. Foam dressing placed to that site as well. Reminded him to be careful with his skin because he has several healing skin tears. No other changes at this time. Call light within reach.
[2021-05-02 20:37] VITALS: BP 150/79; PULSE 143; TEMP 98.3
--- NOTE | 2021-05-02 20:58 | NUR ---
ALERT AND OX3. DENIES SOA, CHEST PAIN OR DIZZY. NO GENERAL PAIN. PM MEDS GIVEN. POC DISCUSSED. TO BED W SLIDEBOARD. CALL LIGHT WI REACH. NEEDS MET.
[2021-05-03 06:51] VITALS: BP 155/53; PULSE 62; TEMP 98.6
--- NOTE | 2021-05-03 07:00 | NUR ---
Report received from RUDY Cooney.
--- NOTE | 2021-05-03 09:00 | NUR ---
Assessment charted. Pt in bed sitting up resting after eating breakfast. States he has a headache, PRN [place] provided per request. Pt is oriented, feeling better, states that he is doing well pivoting with asssistance to wheelchair and even standing with therapy and walker. Pt has various skin tears and open scabbed areas on body from picking. Stage 1 to sacrem. Feeling stronger each day. Will continue to monitor.
--- NOTE | 2021-05-03 14:47 | NUR ---
Reviewed the team conference note w/ pt. He stated he understood & agreed w/ the current level of functioning. Informed him that the team has set a tentative d/c date for 05/12/21 w/ recommendations for home health PT/OT. He stated that is what he was kind of thinking. We talked about doing the family meeting tomorrow, 05/04/21 & then scheduling for a home assessment & family training. He seemed fine with this. We also talked about equipment needs like a w/c, sliding board, etc. He had no questions at this time but continues to be very appeciative of the staff & everything they have helped him accomplish.
[2021-05-03 16:18] VITALS: BP 130/66; PULSE 74; TEMP 97.4
--- NOTE | 2021-05-03 18:30 | NUR ---
pt has done well thor day, prefers to remain in wheelchair, did get to bed this afternoon per my request to do a bladder scan as he had not voided all day, did sturglle with the transfer but able to transfer back to wheelchair well with minimal assistance. Bladder scan revealed 915 mls, pt able to void 650 mls post scan. Denies other needs, will give report to nightshift nurse who iwll resume care.
--- NOTE | 2021-05-03 21:30 | NUR ---
TRANSFERRED TO BED PER SLIDE BOARD. STAFF ONLY ASSISTED WITH PLACEMENT OF SLIDE BOARD. PT ABLE TO TRANSFER SELF. SSI GIVEN. SEE MAR. 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 RESTING ON AIR MATTRESS. CALL LIGHT IN REACH. BED ALARM SET.
--- NOTE | 2021-05-03 21:45 | NUR ---
PT INCONTINENT OF URINE ON CLOTHING, BED AND FLOOR AFTER JUST ASKING IF NEEDED TO URINATE. PT MORE CONFUSED TONIGHT. O2 SAT [id number] 87% ON 7L OXYMASK. CHANGED CLOTHING AND LINENS. PT KEEPS TAKING OFF MASK. SOUNDS BED ALARM FREQUENTLY. PT NEEDS VERY CLOSE MONITORING. GAVE XANAX FOR ANXIETY A LITTLE WHILE AGO. CALL LIGHT IN REACH. BED ALARM SET.
[2021-05-04 03:59] VITALS: BP 118/57; PULSE 52; TEMP 98
[2021-05-04 04:00] VITALS: BP 136/67; PULSE 72; TEMP 97.8
--- NOTE | 2021-05-04 06:40 | NUR ---
Report received from RUDY Carlos. Patient was awake and denied pain. Call light and bedside table are within reach. Will continue to monitor patient throughout shift.
--- NOTE | 2021-05-04 13:45 | NUR ---
Conducted family meeting w/ pt & & son, Lev, via phone. Also present was the OT & SW/agency director. The team talked about how pt has been doing & any concerns. Informed them of tentative d/c for 05/12/21, w/ recommendation for home health PT/OT. They are a little concerned w/ the plan & SW talked about doing a home assessment & family training. They are open to this & will set up the Home assessment for Saturday & work w/ family on scheduling the family training. We also discused equipment needs & informed them that SW will help.
--- NOTE | 2021-05-04 15:00 | NUR ---
Patient has completed all therapies for the day and is in WC. Patient denies pain at this time. Call light and bedside table are within reach.
[2021-05-04 15:28] VITALS: BP 145/51; PULSE 66; TEMP 98.4
--- NOTE | 2021-05-04 20:45 | NUR ---
TRANSFERRED FROM WC TO BED PER SLIDE BOARD WITH CGA. SEE MAR FOR SSI GIVEN. NO FURTHER NEEDS AT THIS TIME. CALL LIGHT IN PLACE BED ALARM SET.
[2021-05-05 05:51] VITALS: BP 149/58; PULSE 81; TEMP 98.1
--- NOTE | 2021-05-05 09:52 | NUR ---
PT UP TO WC WITH SLIDE BOARD WITH MIN ASSIST. PT ASSISTED WITH DRESSING. EATING AND DRINKING WO N/V. PT TO THERAPY ROOM INDEPENDENTLY WITH WHEEL CHAIR. RETURNED TO ROOM AM MEDS GIVEN. VSS.
[2021-05-05 16:30] VITALS: BP 158/68; PULSE 74; TEMP 97.7
--- NOTE | 2021-05-05 19:00 | NUR ---
RECEIVED CHANGE OF SHIFT REPORT FROM DAY SHIFT NURSE.
--- NOTE | 2021-05-05 23:04 | NUR ---
PATIENT USES SLIDE BOARD FOR OUT OF BED TRANSFERS WITH STAFF ASSIST X1 AND WITH NO REPORTED PROBLEMS OR CONCERNS. DENIES CHEST PAIN/SOA THIS SHIFT SO FAR. DENIES NUMBNESS/TINGLING TO EXTREMITIES AT THIS TIME. EXIT ALARMS ON WHEN IN BED OR UP IN CHAIR. CALL LIGHT WITHIN REACH.
[2021-05-06 05:10] VITALS: BP 150/70; PULSE 69; TEMP 97.8
--- NOTE | 2021-05-06 06:53 | NUR ---
Report received from RUDY Piper. Patient is sleeping in bed. Call light and bedside table are within reach. Will continue to monitor patient throughout shift.
--- NOTE | 2021-05-06 07:26 | NUR ---
CHANGE OF SHIFT REPORT GIVEN TO DAY SHIFT NURSE, SHAISTA GRANT.
[2021-05-06 18:45] VITALS: BP 155/65; PULSE 77; TEMP 97.7
--- NOTE | 2021-05-06 19:19 | NUR ---
RECEIVED CHANGE OF SHIFT REPORT FROM DAY SHIFT NURSE.
--- NOTE | 2021-05-06 21:00 | NUR ---
PATIENT USING SLIDE BOARD FOR OUT OF BED TRANSFER INTO WHEEL CHAIR WITH X1 SBA WITH NO REPORTED COMPLAINTS OR CONCERNS. DENIES CHEST PAIN/SOA AT THIS TIME. DENIES NUMBNESS/TINGLING TO EXTREMITIES AT THIS TIME. EXIT ALARMS ON WHEN UP IN CHAIR OR IN BED WITH CALL LIGHT WITHIN REACH.
--- NOTE | 2021-05-07 02:40 | NUR ---
PATIENT INSISTED HAVING AIR MATTRESS OVERLAY DEFLATED FOR COMFORT, STATED INFLATED AIR MATTRESS WAS CAUSING PROBLEMS.
[2021-05-07 04:11] VITALS: BP 127/55; PULSE 86; TEMP 97.7
--- NOTE | 2021-05-07 06:52 | NUR ---
Report received from RUDY Piper. Patient is sleeping in bed. Call light and bedside table are within reach. Will continue to monitor patient throughout shift.
--- NOTE | 2021-05-07 07:03 | NUR ---
CHANGE OF SHIFT REPORT GIVEN TO DAY SHIFT NURSE, SHAISTA GRANT.
--- NOTE | 2021-05-07 15:06 | NUR ---
This nurse went into patient's room and he was lying in bed. Patient stated he used the sliding board to get himself into bed because he is going to have to get used to it when he goes home. Patient denies pain at this time. Call light and bedside table are within reach.
[2021-05-07 18:55] VITALS: BP 155/67; PULSE 76; TEMP 98.2
--- NOTE | 2021-05-07 19:20 | NUR ---
RECEIVED CHANGE OF SHIFT FROM DAY SHIFT NURSE. EXIT ALARMS ON WHEN IN BED OR CHAIR. CALL LIGHT WITHIN REACH.
[2021-05-08 03:41] VITALS: BP 173/63; PULSE 67; TEMP 97.7
--- NOTE | 2021-05-08 07:00 | NUR ---
CHANGE OF SHIFT REPORT GIVEN TO DAY SHIFT NURSE, JOON GRANT. PATIENT DENIED CHEST PAIN/SOA AND NUMBNESS/TINGLING TO EXTREMITIES THIS SHIFT. CONTINUES IN CONTACT ISOLATION. EXIT ALARMS IN USE WHEN IN BED OR UP IN CHAIR WITH CALL LIGHT WITHIN REACH.
--- NOTE | 2021-05-08 07:09 | NUR ---
shift report received from RUDY Cisneros
[2021-05-08 07:38] LABS: MEAN CELL VOLUME 97 fl (80.0-100.0); MEAN CORPUSCULAR HGB CONC 30 g/dl (33.0-37.0); MEAN PLATELET VOLUME 11.2 fl (7.4-10.4); PLATELET COUNT 137 K/mm3 (130-400); RED BLOOD COUNT 2.63 M/mm3 (4.20-5.60); REDCELL DISTRIBUTION WIDTH-CV 17.5 % (11.5-14.5)
[2021-05-08 07:41] LABS: HEMATOCRIT 25.4 % (42.0-52.0); HEMOGLOBIN 7.7 g/dl (13.5-18.0); MEAN CORPUSCULAR HEMOGLOBIN 29 pg (27.0-31.0)
[2021-05-08 07:44] LABS: CALCIUM 9.2 mg/dL (8.4-10.2); POTASSIUM 4.4 mmol/L (3.4-5.0)
--- NOTE | 2021-05-08 08:15 | NUR ---
assisted to sitting up on side of bed for breakfast, full assessment completed, see interventions for further info,
--- NOTE | 2021-05-08 09:19 | NUR ---
out of room and working with physical therapy
--- NOTE | 2021-05-08 10:44 | NUR ---
up in WC and watching TV
--- NOTE | 2021-05-08 11:19 | NUR ---
to shower with assistance of occupational therapy
--- NOTE | 2021-05-08 12:30 | NUR ---
back to room after shower, remains up in , Dr Vaughn in to see patient
--- NOTE | 2021-05-08 13:04 | NUR ---
occupational therapy in to work with patient
--- NOTE | 2021-05-08 14:13 | NUR ---
returned to room from therapy, has skin tear to left forearm down near where his watch sits, dressed with telfa and held in place with snow
--- NOTE | 2021-05-08 14:53 | NUR ---
Visited w/ pt, who stated he is looking forward to doing the home assessment tomorrow, 05/09/21. He asked some questions which SW answered.
--- NOTE | 2021-05-08 16:24 | NUR ---
remains up in WC looking at TV and talking on phone
[2021-05-08 17:02] VITALS: BP 155/63; PULSE 67; TEMP 97.3
--- NOTE | 2021-05-08 19:10 | NUR ---
shift report given to RUDY Friend
[2021-05-09 06:08] VITALS: BP 104/56; PULSE 110; TEMP 97.1
--- NOTE | 2021-05-09 07:13 | NUR ---
Report received from RUDY Friend. Patient is sleeping in bed. Call light and bedside table are within reach. Will continue to monitor throughout shift.
--- NOTE | 2021-05-09 10:00 | NUR ---
Patient has completed all therapies for the day and is resting in bed to get ready for home assessment.
--- NOTE | 2021-05-09 13:20 | NUR ---
Patient has left the facility for his home assessment.
--- NOTE | 2021-05-09 15:22 | NUR ---
Patient has returned to the facility from home visit to room 336. Informed by PT that patient has new skin tears that are bleeding. Will address. Call light and bedside table are witin reach.
[2021-05-09 16:44] VITALS: BP 151/61; PULSE 73; TEMP 98.2
--- NOTE | 2021-05-09 20:00 | NUR ---
Initial shift assessment done-pt up in wheelchair watching a TV show with his , very pleasant, states had a home visit today and is excited about going home although it is a new apt for him and states "its a little smaller than i thought" but states ready to sleep in his own bed! Urinal emptied of 400cc yellow urine at this time, heading home, pt states would like to sit up for a little while longer- requesting some of his grapes in refrigerator as a snack tonight.
--- NOTE | 2021-05-09 21:45 | NUR ---
Back to bed with slide board per self- nurse at bedside- able to get both legs up in bed on his own and get situated in bed-
--- NOTE | 2021-05-10 02:29 | NUR ---
[place] given at this time for left leg and right shoulder pain 10- states is not sleeping very good tonight,, repositioned in bed, no other requests
--- NOTE | 2021-05-10 04:30 | NUR ---
Has been sleeping well since pain pill was given a few hours ago-
[2021-05-10 05:37] VITALS: BP 171/71; PULSE 70; TEMP 98.5
--- NOTE | 2021-05-10 06:45 | NUR ---
Patient is resting in bed and denies pain at this time. Call light and bedside table are within reach. Will continue to monitor patient throughout shift.
--- NOTE | 2021-05-10 14:42 | NUR ---
Patient has completed all therapies for the day and is in WC. Patient denies pain at this time. Call light and bedside table are within reach.
--- NOTE | 2021-05-10 15:44 | NUR ---
Reviewed the team conference notes w/ pt, who stated he feels he is doing well & the home assessment went well. Informed him of d/c still on 05/12/21 w/ recommendations for home health PT/OT/ST. He told SW that he wants to use [facility]. Also reviewed the recommended equipment of wheelchair, slidng board, tub transfer bench, & bariatric bedside commode. Informed him that SW would be able to get the w/c & sliding board through Medicare but the other items would be private pay. He told SW that they have ordered them. Inquired which agency he wanted to use & stated he had used [facility] in the past. Did tell him the team is recommending private duty caregivers also to help w/ additional care. Did inquire about his & son being able to do family training tomorrow, 05/11/21 & pt contact his son, Prem. Prem stated he would be able to start at 1:30 pm. Told him we would set it up for about an hour but might need a little more. Contacted [facility] & worked a 21" wheelchair & 24" transfer board. Did inquire about a cushion being covered under Medicare & person stated she would have to ask & get back w/ SW. Faxed the referral information. Attempted to contact pt's , Delmis. She was not avilable so left her a message to call SW back.
[2021-05-10 17:57] VITALS: BP 157/61; PULSE 62; TEMP 97.3
--- NOTE | 2021-05-10 19:37 | NUR ---
RECEIVED CHANGE OF SHIFT REPORT FROM DAY SHIFT NURSE. EXIT ALARM ON WHEN IN BED OR UP IN CHAIR WITH CALL LIGHT WITHIN REACH.
[2021-05-11 01:34] VITALS: BP 137/78
--- NOTE | 2021-05-11 03:09 | NUR ---
PATIENT SLEEPING, DOES NOT WAKE WHEN ROOM IS ENTERED BY STAFF ON ROUNDS. BREATHING NONLABORED AND EVEN. EXIT ALARMS ON WHEN IN BED WITH CALL LIGHT WITHIN REACH. PATIENT USING SLIDE BOARD WITH TRANSFER IN AND OUT OF BED INTO CHAIR WITH MIN TO NO ASST. DENIES CHEST PAIN/SOA AND DENIES NUMBNESS/TINGLING TO EXTREMITIES THIS SHIFT.
[2021-05-11 05:17] VITALS: BP 135/55; PULSE 69; TEMP 97.2
--- NOTE | 2021-05-11 07:43 | NUR ---
CHANGE OF SHIFT REPORT GIVEN TO DAY SHIFT NURSE, RAMON GRANT.
--- NOTE | 2021-05-11 09:15 | NUR ---
Contacted [facility] & spoke w/ Vika. Referral made for PT/OT/ST/Nursing. Informed her of d/c for 05/12/21. Faxed referral information.
--- NOTE | 2021-05-11 15:11 | NUR ---
Visited w/ pt, , & son (Prem) about d/c plans for 05/12/21. Informed them that [facility] is unable to provide all the services recommended & provided them a list of home health agencies in [place]. They decided on [facility]. Also provided them w/ a list of [facility] agencies as requested by the . Reviewed w/ them again what Medicare will cover regarding equipment & what is out of pocket. Answered their questions. Reviewed the Medicare Rights form & pt signed the form.
--- NOTE | 2021-05-11 15:52 | NUR ---
Contacted [facility] & spoke w/ Amara. Referral made for PT/OT/ST/nursing. Informed her of d/c for tomorrow, 05/12/21. Was informed they would accept. Faxed referral information.
[2021-05-11 16:08] VITALS: BP 141/57; PULSE 65; TEMP 97.6
--- NOTE | 2021-05-11 20:48 | NUR ---
PT UP IN WC AT THIS TIME. WATCHING TV. NO NEEDS. PT RELATES EXCITED ABOUT GOING HOME TOMORROW.
--- NOTE | 2021-05-12 04:23 | NUR ---
INCONTINENT OF URINE AND SPILLAGE OF URINAL ON SELF, LINENS AND FLOOR. CLEANED UP AT THIS TIME.
[2021-05-12 05:54] VITALS: BP 155/56; PULSE 89; TEMP 97.8
[2021-05-12] MEDS ORDERED: PACERONE200 MG PO (08:53)
[2021-05-12] MEDS ORDERED: KEPPRA 500MG500 MG PO (08:54)
[2021-05-12] MEDS ORDERED: SINEMET 25/101 UDTAB PO (08:54)
[2021-05-12] MEDS ORDERED: ZOLOFT 50MG50 MG PO (08:54)
[2021-05-12] MEDS ORDERED: BUMEX 1MG TA1 MG/TA1 PO (08:57)
[2021-05-12] MEDS ORDERED: DESITIN MAXIMUM S40% TP (08:58)
[2021-05-12] MEDS ORDERED: MAG-OX 400400 MG/TAB PO (08:58)
[2021-05-12] MEDS ORDERED: NOVLOG SQ ×2 (09:10)
--- NOTE | 2021-05-12 09:54 | NUR ---
Visited w/ pt about d/c plans today. Informed him that [facility] has accepted him & will be able to provide all services requested. Told him the w/c & sliding board are to be delivered today before d/c. Inquired if he had any other questions or concerns at this time. He did not but expressed his appreciation to all the staff that have worked w/ him & helped him get to go home.
--- NOTE | 2021-05-12 15:08 | NUR ---
Discharge QIM scores were reviewed by the team. Code of 3 chosen for toilet hygiene was determined by team discussion to be the most usual performance for this patient during the assessment period. Code of 4 chosen for toileting transfers was determined by team discussion to be the most usual performance for this patient during the assessment period. Code of 3 chosen for lower body dressing was determined by team discussion to be the most usual performance for this patient during the assessment period. Code of 6 chosen for putting on/taking off footwear was determined by team discussion to be the most usual performance for this patient during the assessment period. Code of 6 chosen for sit to lying was determined by team discussion to be the most usual performance for this patient during the assessment period. Code of 6 chosen for lying to sitting on side of bed was determined by team discussion to be the most usual performance for this patient during the assessment period. Code of 4 for chair/bed to chair transfers was determined by team discussion to be the most usual performance for this patient during the assessment period.--Marita Blackmon,
--- NOTE | 2021-05-12 17:28 | NUR ---
PT DISCHARGED HOME ON STABLE CONDITION. D/C INSTRUCTIONS, FLU AND MEDICATIONS REVEIWED WITH PT. QUESTIONS AND CONCERNS ADDRESSED. ALL PERSONAL BELONGINGS SENT WITH PT
== END 2021-05-12 16:39 | disposition home health service (06) | DRG 91 ==
PROVIDERS: Internal Medicine Nephrology; Nurse Practitioner Family; Physician Assistant; ADMIT Internal Medicine
DX: G72.81 Critical illness myopathy (principal); B37.7 Candidal sepsis; I50.22 Chronic systolic (congestive) heart failure; N17.9 Acute kidney failure, unspecified; G93.40 Encephalopathy, unspecified; I13.0 Hypertensive heart and chronic kidney disease with heart failure and stage 1 through stage 4 chronic kidney disease, or unspecified chronic kidney disease; I48.92 Unspecified atrial flutter; R26.89 Other abnormalities of gait and mobility; R56.9 Unspecified convulsions; I48.91 Unspecified atrial fibrillation; L89.609 Pressure ulcer of unspecified heel, unspecified stage; R00.0 Tachycardia, unspecified; R55 Syncope and collapse; E11.22 Type 2 diabetes mellitus with diabetic chronic kidney disease; E11.40 Type 2 diabetes mellitus with diabetic neuropathy, unspecified; N18.30 Chronic kidney disease, stage 3 unspecified; D69.6 Thrombocytopenia, unspecified; K59.00 Constipation, unspecified; D63.1 Anemia in chronic kidney disease; M48.00 Spinal stenosis, site unspecified; I25.10 Atherosclerotic heart disease of native coronary artery without angina pectoris; M35.3 Polymyalgia rheumatica; R53.81 Other malaise; Z79.4 Long term (current) use of insulin; Z79.82 Long term (current) use of aspirin; Z79.52 Long term (current) use of systemic steroids; Z95.2 Presence of prosthetic heart valve; Z88.2 Allergy status to sulfonamides; Z90.49 Acquired absence of other specified parts of digestive tract; Z86.73 Personal history of transient ischemic attack (TIA), and cerebral infarction without residual deficits; Z73.6 Limitation of activities due to disability; Z86.14 Personal history of Methicillin resistant Staphylococcus aureus infection; Z79.891 Long term (current) use of opiate analgesic; Z87.891 Personal history of nicotine dependence
CPT/HCPCS: 99222-AI; 99231-AI; 99232-AI; 99233-AI; 99239; J1815; J1953; J7120; J7512

== ENCOUNTER 2021-05-22 06:54 | Inpatient (IN) | payer MEDICARE ==
[2021-05-22] VITALS (42 sets, daily range): BP systolic 96; BP diastolic 41; PULSE 61; TEMP 102.2; O2SAT 37–100
[~2021-05-22] VITALS: Ht 188 cm; Wt 9.1 kg
[2021-05-22 07:27] LABS: COLLECTION METHOD CLEAN CATCH
[2021-05-22 07:33] LABS: BASO % 0.3 % (0.0-2.0); EOS # 0.1 (0.0-0.7); GRAN # 7.7 (1.4-6.5); GRAN % 89.9 % (42.2-75.2); HEMOGLOBIN 9.6 g/dl (13.5-18.0); LYMPH # 0.6 (1.2-3.4); LYMPH % 6.6 % (20.0-51.0); MEAN CELL VOLUME 97 fl (80.0-100.0); MEAN CORPUSCULAR HEMOGLOBIN 29 pg (27.0-31.0); MEAN CORPUSCULAR HGB CONC 30 g/dl (33.0-37.0); MEAN PLATELET VOLUME 11.5 fl (7.4-10.4); MONO # 0.2 (0.1-0.6); MONO % 1.9 % (1.7-9.3); PLATELET COUNT 188 K/mm3 (130-400); RED BLOOD COUNT 3.29 M/mm3 (4.20-5.60); REDCELL DISTRIBUTION WIDTH-CV 16.3 % (11.5-14.5)
[2021-05-22 07:38] LABS: PH 5 (5-8); SQUAMOUS EPITHELIAL 0-2 /hpf; URINE APPEARANCE Hazy; URINE BACTERIA None Seen /hpf; URINE BILIRUBIN Negative (NEGATIVE); URINE BLOOD 1+ (NEGATIVE); URINE COLOR Yellow; URINE GLUCOSE Negative (NEGATIVE); URINE KETONE Negative (NEGATIVE); URINE LEUKOCYTE ESTERASE Negative (NEGATIVE); URINE NITRATE Negative (NEGATIVE); URINE PROTEIN(semi-quant) 2+ (NEGATIVE); URINE UROBILINOGEN Negative (NEGATIVE)
[2021-05-22 07:42] LABS: ALBUMIN 3.5 gm/dL (3.4-4.8); CALCIUM 9.8 mg/dL (8.4-10.2); CREATININE, serum 2.42 mg/dL (0.72-1.25); POTASSIUM 5.7 mmol/L (3.5-4.5); TOTAL PROTEIN 6.8 gm/dL (6.2-8.1)
[2021-05-22 08:09] LABS: BILIRUBIN,TOTAL 0.6 mg/dL (0.2-1.2)
[2021-05-22 11:42] LABS: ARTERIAL BLD GAS O2 SATURATION 93.1 % (92-100); ARTERIAL BLD GAS TCO2 CT 29.3; ARTERIAL BLOOD GAS BASE EXCESS 2.2 (-2-2); ARTERIAL BLOOD GAS HCO3 27.8 meq/L (22-26); ARTERIAL BLOOD GAS PCO2 48.6 mmHg (35-45); ARTERIAL BLOOD GAS PO2 72.1 mmHg (80-100); ARTERIAL BLOOD GAS pH 7.38 (7.35-7.45)
--- NOTE | 2021-05-22 11:51 | NUR ---
PT WAS INTUBATED WITH AN 8.0 ETT, @ 1104. NO COMPLICATIONS AND PT IS VENTILATING AND OXYGENATING APPROPRIATELY AT THIS TIME. ABG CONDUCTED POST INTUBATION, FOLLOW UP ABG TO BE COMPLETED AT A LATER TIME.
[2021-05-22 14:00] LABS: ARTERIAL BLD GAS O2 SATURATION 94.9 % (92-100); ARTERIAL BLD GAS TCO2 CT 24.8; ARTERIAL BLOOD GAS BASE EXCESS -1.7 (-2-2); ARTERIAL BLOOD GAS HCO3 23.5 meq/L (22-26); ARTERIAL BLOOD GAS PCO2 41.6 mmHg (35-45); ARTERIAL BLOOD GAS PO2 81.3 mmHg (80-100); ARTERIAL BLOOD GAS pH 7.37 (7.35-7.45)
--- NOTE | 2021-05-22 14:40 | NUR ---
Arrived to the unit via ER; intubated. Tolerating ventilator well. Rectal thermometer probe placed due to elevated temperature. Turned on fan and placed cool washclothes on patient.
--- NOTE | 2021-05-22 15:15 | NUR ---
After meeting with the hospitalist family has decided to withdraw care. Will await patient's brother than extubate when family is ready.
--- NOTE | 2021-05-22 16:04 | NUR ---
PT EXTUBATED PALLIATIVELY.
--- NOTE | 2021-05-22 16:13 | NUR ---
Patient asystole at 1601. Confirmed via auscultation. Hospitalist notified. Family at bedside during this time.
--- NOTE | 2021-05-22 16:48 | NUR ---
[facility] determines that patient is not a candidate for organ procurement. [facility]
== END 2021-05-22 16:01 | disposition expired | DRG 871 ==
LOC: COL.ER 06:54 → MEDICAL 10:09 → ICU 10:10
PROVIDERS: Family Medicine; Physician Assistant; ADMIT Family Medicine
PROC: 0BH17EZ Insertion of Endotracheal Airway into Trachea, Via Natural or Artificial Opening (ICD-10-PCS; principal; 2021-05-22)
PROC: 5A1935Z Respiratory Ventilation, Less than 24 Consecutive Hours (ICD-10-PCS; 2021-05-22)
DX: A41.9 Sepsis, unspecified organism (principal); R65.21 Severe sepsis with septic shock; J96.01 Acute respiratory failure with hypoxia; J96.02 Acute respiratory failure with hypercapnia; I13.0 Hypertensive heart and chronic kidney disease with heart failure and stage 1 through stage 4 chronic kidney disease, or unspecified chronic kidney disease; N17.9 Acute kidney failure, unspecified; I50.22 Chronic systolic (congestive) heart failure; E78.5 Hyperlipidemia, unspecified; N18.30 Chronic kidney disease, stage 3 unspecified; I95.9 Hypotension, unspecified; E87.5 Hyperkalemia; D64.9 Anemia, unspecified; I48.91 Unspecified atrial fibrillation; E11.22 Type 2 diabetes mellitus with diabetic chronic kidney disease; Z96.651 Presence of right artificial knee joint; Z66 Do not resuscitate; Z51.5 Encounter for palliative care; Z20.822 Contact with and (suspected) exposure to COVID-19; M35.3 Polymyalgia rheumatica; Z87.891 Personal history of nicotine dependence; Z86.73 Personal history of transient ischemic attack (TIA), and cerebral infarction without residual deficits; Z90.49 Acquired absence of other specified parts of digestive tract; Z95.2 Presence of prosthetic heart valve; Z86.14 Personal history of Methicillin resistant Staphylococcus aureus infection; Z79.82 Long term (current) use of aspirin
CPT/HCPCS: 99223-AI; J0692; J3010; J3370; J7030; J7050; J7060; J7120

== ENCOUNTER → 2021-05-22 | Emergency (ER) ==
[~2021-05-22] VITALS: Ht 188 cm; Wt 90.9 kg
[~2021-05-22] MED LIST changes: +BUMEX 1MG TA1 MG/TA1 PO; +DESITIN MAXIMUM S40% TP; +DIFLUCAN 100MG100 MG PO; +KEPPRA 500MG500 MG PO; +MAG-OX 400400 MG/TAB PO; +PACERONE200 MG PO; +PREDNISONE 2.52.5 MG PO; +SINEMET 25/101 UDTAB PO; +ZOLOFT 50MG50 MG PO
== END ==
LOC: COL.ER 06:46 → EDBD 06:47 → COL.ER 06:47
DX: R50.9 Fever, unspecified (principal)